=== PATIENT | male | born 1960 | race Caucasian/White ===

== ENCOUNTER 2023-02-26 08:06 | Outpatient (AMB) | payer OTHER, SELFPAY ==
[2023-02-26 08:32] VITALS: BP 132/74; PULSE 76; O2SAT 97; BMI 26.3
--- NOTE | 2023-02-26 08:32 | A.OFFPC_ITS ---
Vital Signs 02/26/23 08:32 Height 5 ft 9 in Weight 178 lb 0.2 oz BMI 26.3 BP 132/74 Blood Pressure Location Lt brachial Position Sitting Pulse 76 Pulse Source Pulse Oximeter Pulse Oximetry (%) 97 Oxygen Delivery Method Room Air Intake Visit Reasons: New patient-requesting physical Allergies Penicillins [PENICILLINS] Allergy (Severe, Verified 02/26/23 08:38) Anaphylaxis Medication List - Last Reconciled 02/26/23 by AUSTYN Infante cetirizine (Zyrtec) 10 mg PO DAILY tamsulosin 0.8 mg PO BEDTIME Tobacco use date assessed: 02/26/23 Fall risk assessment: No Falls in past year Last assessed Fall Risk: 02/26/23 Dental Screening Dental Screen Date: 02/26/23 Did you have a dental visit in the last 12 months?: Yes Did you have a dental problem in the last 6 months where you did not have access to dental care?: No Was dental information given to patient?: Patient has dentist HPI New patient-requesting physical HPI Details Patient is a 63-year-old male who presents today to establish care. Previous PCP at [facility] [place], patient reports last visit last year. Medical history significant for celiac disease, BAKARI on CPAP-reports feeling very tired after waking up and after meals-reports last sleep study about 5 years ago-his insurance will not cover another sleep study - reports new insurance now-he will call insurance to see if new sleep study will be covered, diverticulosis, BPH, overactive bladder. Patient reports hands joints and knees pain for the past 6 months, reports fatigue, hard time to concentrate, reports weight loss in the summer he was 150 lb, headaches, sinus congestion-uses Afrin couple times per month, reports multiple bowel movements normal consistency throughout the day, bloating, blurry vision, dizziness, shortness of breath on exertion and chest pain on exertion for the past 5 months. Reports colonoscopy about 4 years ago with polyps removed-will refer for another colonoscopy. [facility] Medical History (Updated 02/26/23 @ 09:03 by AUSTYN Infante) History of ventricular tachycardia Diverticulitis Hemorrhoids Surgical History (Updated 02/26/23 @ 09:30 by AUSTYN Infante) History of colonoscopy H/O esophagogastroduodenoscopy H/O neck surgery H/O cardiac radiofrequency ablation H/O rhinoplasty Social History Housing: House Patient Tobacco Use Status: Never used Tobacco service: No Current occupational status: employed Cognitive needs: No Hearing needs: No Vision needs: No Questionnaire PHQ-9 Over the last 2 weeks, how often have you been bothered by any of the following problems? 1. Little interest or pleasure in doing things: not at all 2. Feeling down, depressed, or hopeless: several days 3. Trouble falling or staying asleep, or sleeping too much: not at all 4. Feeling tired or having little energy: not at all 5. Poor appetite or overeating: not at all 6. Feeling bad about yourself - or that you are a failure or have let yourself or your family down: not at all 7. Trouble concentrating on things, such as reading the newspaper or watching television: not at all 8. Moving or speaking so slowly that other people could have noticed. Or the opposite - being so fidgety or restless that you have been moving around a lot more than usual: not at all 9. Thoughts that you would be better off or of hurting yourself in some way: not at all Total score: 1 Depression Screening Interpretation: Negative Depression Screening Done: Yes 34197 - PHQ-9 Billing: Yes Source: Developed by Drs. Danny Blount, Sanam Chaudhary, Pk Perla and colleagues, with an educational rocío from [employer]. AUDIT C Alcohol Use Questionnaire (AUDIT-C) 1. How often do you have a drink containing alcohol?: Never 2. How many drinks containing alcohol do you have on a typical day when you are drinking?: 1 or 2 3. How often do you have six or more drinks on one occasion?: Never Total Score: 0 Score Reviewed/Action Taken: No TARUN-7 AMB Questionnaire TARUN-7 Date TARUN - 7 assessed: 02/26/23 Feeling nervous, anxious, or on edge: 0 = Not at all Not being able to stop or control worryin = Not at all Worrying too much about different things: 0 = Not at all Trouble relaxin = Not at all Being so restless that it is hard to sit still: 0 = Not at all Becoming easily annoyed or irritable: 0 = Not at all Feeling afraid as if something awful might happen: 0 = Not at all Total TARUN-7 score (0-4 normal; 5-9 mild; 10-14 moderate; 15-21 severe): 0 Source: Developed by Drs. Danny Blount, Sanam Chaudhary, Pk Perla and colleagues, with an educational rocío from [employer]. TARUN-7 Assessment Billing TARUN-7 Assessment Tool: TARUN-7 Assessment 36732 Review of Systems Const Denies body aches, Denies chills, Reports fatigue, Denies fever(s) and Reports headache(s) Eyes Reports blurry vision and Denies change in vision ENT Reports dizziness, Denies otalgia, Reports headache(s), Reports nasal conge stion, Denies nasal discharge, Denies sinus pain and Denies sore throat Card Denies chest pain, Reports chest pain with activity, Denies edema, Denies leg edema, Denies lightheadedness, Denies dyspnea and Reports dyspnea on exertion Resp Denies cough, Denies dyspnea, Reports dyspnea on exertion and Denies wheezing GI Denies abdominal pain, Reports bloating, Denies constipation, Denies diarrhea, Denies nausea and Denies vomiting Denies dysuria Musc Denies myalgias and Reports arthralgias Skin/Breast Denies rash Neuro Reports dizziness and Reports headache(s) Endo Reports fatigue Aller/Immun Denies wheezing Physical exam (Primary Care) Vital Signs: Last Vital Signs Pulse 76 02/26/23 08:32 BP 132/74 02/26/23 08:32 Pulse Ox 97 02/26/23 08:32 Oxygen Delivery Method Room Air 02/26/23 08:32 BMI result Body Mass Index 26.3 Tobacco/Smoking Status: Tobacco use Status Tobacco use date assessed 02/26/23 02/26/23 08:37 Patient Tobacco Use Status Never used Tobacco 02/26/23 08:37 PHQ-9: PHQ-9 Score PHQ-9: Total score 1 02/26/23 08:37 Depression Screening Interpretation: Negative Const General: cooperative and no acute distress Orientation/consciousness: patient oriented x3 HENMT Head: Yes normocephalic and Yes atraumatic Ears: TM's normal bilaterally Face and sinus: Yes sinuses nontender Mouth: oropharynx normal and moist mucous membranes Throat: Yes posterior oropharynx normal Eyes General: appearance normal, both eyes and all related structures Pupils: Equal, round and reactive pupils present EOM: EOMs intact bilaterally Neck Neck: Yes normal visual inspection, Yes full ROM and Yes no lymphadenopathy Thyroid: Thyroid normal Resp Effort & Inspection: normal respiratory effort and able to speak in complete sentences Auscultation: clear to auscultation bilaterally, no crackles, no rales, no rhonchi and no wheezes Cardio Rate: regular rate Rhythm: regular rhythm Heart sounds: S1 normal heart sound present, S2 normal heart sound present and no murmurs GI Palpation (GI): Soft to palpation, not firm, nontender, no guarding, not rigid and no hepatosplenomegaly Auscultation: normal bowel sounds General: No CVA tenderness Back/Spine/Pelvis Back: No CVA tenderness Skin General skin exam: no rashes or lesions noted Neuro General: patient oriented x3 Cranial nerves: Yes Equal, round and reactive pupils present Gait exam (Neuro): Normal gait present Extrem General: Yes full ROM and No edema Assessment and Plan Assessment & Plan (1) Polyarthralgia: Code(s): M25.50 - Pain in unspecified joint Plan: Blood work ordered (2) Intermittent chest pain: Code(s): R07.9 - Chest pain, unspecified Plan: EKG ordered (3) Screening for colon cancer: Code(s): Z12.11 - Encounter for screening for malignant neoplasm of colon (4) Screening for prostate cancer: Code(s): Z12.5 - Encounter for screening for malignant neoplasm of prostate (5) Encounter to establish care: Code(s): Z76.89 - Persons encountering health services in other specified circumstances Plan: Patient presents to establish care Blood work ordered (6) Benign prostate hyperplasia: Code(s): N40.0 - Benign prostatic hyperplasia without lower urinary tract symptoms Plan: Continue tamsulosin at bedtime (7) BAKARI on CPAP: Code(s): G47.33 - Obstructive sleep apnea (adult) (pediatric) Plan: Pulmonology referral for an evaluation and treatment Plan Follow-up in 2 months for PE and labs Orders: Orders Complete Blood Count Auto Diff Today Z76.89 - Persons encountering health services in other specified circumstances ECG 12 lead EKG Today R07.9 - Chest pain, unspecified JONI Reflex Titer and Pattern Today M25.50 - Pain in unspecified joint Vitamin D 25-OH Total Today Z76.89 - Persons encountering health services in other specified circumstances TSH reflex Free T4 Today Z76.89 - Persons encountering health services in other specified circumstances Lipid Panel Today Z76.89 - Persons encountering health services in other specified circumstances Comprehensive Amigo. Panel Fast Today Z76.89 - Persons encountering health services in other specified circumstances Prostate Specific Antigen Today Z12.5 - Encounter for screening for malignant neoplasm of prostate Rheumatoid Factor Today M25.50 - Pain in unspecified joint Referrals Gastroenterology Referral Z12.11 - Encounter for screening for malignant neoplasm of colon Pulmonology Referral G47.33 - Obstructive sleep apnea (adult) (pediatric) Coding Level of Care Code New Pt Level 3 (73005) Diagnoses Polyarthralgia M25.50 Intermittent chest pain R07.9 Screening for colon cancer Z12.11 Screening for prostate cancer Z12.5 Encounter to establish care Z76.89 Benign prostate hyperplasia N40.0 BAKARI on CPAP G47.33 Additional Codes TARUN-7 Assessment Billing - TARUN-7 Assessment Tool: TARUN-7 Assessment 38592 ([id number])
== END 2023-02-26 09:13 | disposition home or self-care (01) ==
PROVIDERS: PCP Nurse Practitioner Family; Visit Provider Nurse Practitioner Family
DX: M25.50 Pain in unspecified joint (principal); R07.9 Chest pain, unspecified; Z12.11 Encounter for screening for malignant neoplasm of colon; Z12.5 Encounter for screening for malignant neoplasm of prostate; Z76.89 Persons encountering health services in other specified circumstances; N40.0 Benign prostatic hyperplasia without lower urinary tract symptoms; G47.33 Obstructive sleep apnea (adult) (pediatric)
CPT/HCPCS: 99203

== ENCOUNTER 2023-02-27 09:07 | Outpatient (REF) | payer OTHER, SELFPAY ==
[2023-02-27 09:17] LABS: MANUAL DIFF FLAG NO
[2023-02-27 10:06] LABS: Basophils Absolute Auto 0.1 X10*3/uL (0.0-0.2); Basophils Percent Auto 1.4 % (0-2); Eosinophils Absolute Auto 0.2 X10*3/uL (0.0-0.4); Eosinophils Percent Auto 2.8 % (0-4); Hematocrit 45.7 % (42.0-52.0); Hemoglobin 15.4 g/dl (14.0-18.0); Imm Gran Abs Auto 0.03 X10*3/uL (0.00-0.03); Imm Gran Pct Auto 0.5 % (0.0-0.4); Lymphocytes Absolute Auto 1.8 X10*3/uL (1.2-4.9); Lymphocytes Percent Auto 27.4 % (20-40); Mean Corpuscular HGB Conc 33.7 g/dl (31.0-36.0); Mean Corpuscular Hemoglobin 30.6 pg (27.0-33.0); Mean Corpuscular Volume 90.9 fL (80.0-98.0); Mean Platelet Volume 9.3 fL (9.4-12.4); Monocytes Absolute Auto 0.6 X10*3/uL (0.1-1.2); Monocytes Percent Auto 9.9 % (2-11); Neutrophils Absolute Auto 3.8 x10*3/uL (2.0-8.3); Platelet Count 315 X10*3/uL (160-400); Red Blood Count 5.03 X10*6/uL (4.60-5.80); Red Cell Distribution Width 12.5 % (11.0-16.0); White Blood Count 6.5 X10*3/uL (4.8-10.8)
[2023-02-27 10:34] LABS: Alanine Aminotransferase 30 U/L (0-40); Albumin Level 4.3 g/dL (3.5-5.0); Alkaline Phosphatase 51 U/L (39-117); Anion Gap 10 (12-20); Aspartate Amino Transferase 19 U/L (5-37); Bilirubin Total 0.7 mg/dL (0.0-1.0); Blood Urea Nitrogen 15 mg/dL (9-16); Calcium 9.3 mg/dL (8.4-10.2); Carbon Dioxide 29 mmol/L (22-29); Chloride 108 mmol/L (96-108); Cholesterol 148 mg/dL (<200); Estimated Glomerular Filt Rate > 60; Glucose Fasting 109 mg/dL (60-99); HDL Cholesterol 49 mg/dL (>40); LDL Cholesterol Calculated 83 mg/dL (<100); Sodium 143 mmol/L (135-145); Total Protein 7.1 g/dL (6.5-8.0); Triglycerides 82 mg/dL (<150)
[2023-02-27 10:43] LABS: Rheumatoid Factor < 13.0 IU/mL (<15.0)
[2023-02-27 10:49] LABS: TSH reflex Free T4 1.68 uIU/mL (0.32-4.0); Vitamin D 25-OH Total 48.4 ng/mL (>30)
[2023-02-27 10:53] LABS: Prostate Specific Antigen 1.75 ng/mL (<0.05-4.0)
[2023-03-08 15:48] LABS: Anti Nuclear Antibody Pattern Nuclear, Speckled; Anti Nuclear Antibody Screen POSITIVE (NEGATIVE)
== END 2023-02-27 09:08 | disposition home or self-care (01) ==
LOC: HO.LAB 09:07
PROVIDERS: PCP Nurse Practitioner Family; Visit Provider Nurse Practitioner Family
DX: M25.50 Pain in unspecified joint (principal); Z76.89 Persons encountering health services in other specified circumstances; Z12.5 Encounter for screening for malignant neoplasm of prostate
CPT/HCPCS: 36415; 80053; 80061; 82306; 84153; 84443; 85025; 86038; 86039; 86431

== ENCOUNTER → 2023-03-01 10:05 | Outpatient (REF) | payer OTHER, SELFPAY ==
--- NOTE | 2023-03-01 10:09 | ECG_ITS ---
Test Reason : RO7.9 Blood Pressure : / mmHG Vent. Rate : 084 BPM Atrial Rate : 084 BPM P-R Int : 172 ms QRS Dur : 108 ms QT Int : 376 ms P-R-T Axes : 066 009 055 degrees QTc Int : 444 ms Normal sinus rhythm Normal ECG When compared with ECG of 31-DEC-2015 18:58, No significant change was found Referred By: Ines Carnes Electronically Signed By:MICHELLE ABEBE MD
== END ==
LOC: HO.CARD 10:05
PROVIDERS: PCP Nurse Practitioner Family; Visit Provider Nurse Practitioner Family
DX: R07.9 Chest pain, unspecified (principal)
CPT/HCPCS: 93005

== ENCOUNTER 2023-03-10 11:07 | Outpatient (REF) | payer OTHER, SELFPAY ==
[2023-03-10 11:58] LABS: Estimated Average Glucose 117 mg/dL; Hemoglobin A1c % 5.7 % (<6.0)
== END 2023-03-10 11:08 | disposition home or self-care (01) ==
LOC: HO.LAB 11:07
PROVIDERS: PCP Nurse Practitioner Family; Visit Provider Nurse Practitioner Family
DX: R73.01 Impaired fasting glucose (principal)
CPT/HCPCS: 36415; 83036

== ENCOUNTER → 2023-03-17 09:01 | Outpatient (REF) | payer OTHER, SELFPAY ==
--- NOTE | 2023-03-17 09:04 | CA_ITS ---
Acquisition Time: 2023-03-17 09:08:49 Total Exercise Time: 00:07:27 Test Indications: CHEST PAIN Medications: TAMSULOSIN CETIRIZINE Protocol: ARMINDA Max HR: 133 BPM 85% of Pred: 156 BPM Max BP: 148/066 mmHG Max Work Load: 9.2 METS Exercise stress test exercise 7 min 27 sec of Arminda protocol achieving 85% MPHR, without anginal symptoms, without arrhythmias, with normotensive response to exercise. without EKG changes. Test reviewed with Dr. Tobin. Referred By: Ines Carnes Overread By: Samreen Monahan
== END ==
LOC: HO.CARD 09:01
PROVIDERS: PCP Nurse Practitioner Family; Visit Provider Nurse Practitioner Family
DX: R07.9 Chest pain, unspecified (principal)
CPT/HCPCS: 93017; 99202

== ENCOUNTER → 2023-03-17 09:04 | Outpatient (BNV) | payer OTHER, SELFPAY | PROVIDERS: PCP Nurse Practitioner Family; Visit Provider Nurse Practitioner | DX: R07.9 Chest pain, unspecified (principal) | CPT/HCPCS: 93016; 93018 ==

== ENCOUNTER 2023-03-17 13:27 | Outpatient (AMB) | payer OTHER, SELFPAY ==
[2023-03-17 13:32] VITALS: BP 128/70; PULSE 78; O2SAT 98; BMI 26.1
--- NOTE | 2023-03-17 13:32 | MHC.OFFVIS ---
Intake Vital Signs 03/17/23 13:32 Height 5 ft 9 in Weight 177 lb BMI 26.1 BP 128/70 Blood Pressure Location Lt brachial Position Sitting Pulse 78 Pulse Source Pulse Oximeter Pulse Oximetry (%) 98 Oxygen Delivery Method Room Air Intake Visit Reasons: Obstructive sleep apnea Clinical Biostatistician Required: No Leather Coverer: Leather Coverer offered & declined Allergies Penicillins [PENICILLINS] Allergy (Severe, Verified 03/17/23 13:39) Anaphylaxis Medication List - Last Reconciled 03/17/23 by Amee Arriaga LPN cetirizine (Zyrtec) 10 mg PO DAILY tamsulosin 0.8 mg (2 x 0.4 mg) PO BEDTIME HPI Obstructive sleep apnea HPI Details Redd is a pleasant 63 year old male, former smoker with less than 10 pack year history, quit 10 years ago, with underlying BAKARI on BiPAP and asthma since childhood. He was referred for pulmonary evaluation for management of sleep apnea. He reports sleep study was performed years ago and can not recall where it was performed. He states he has been on CPAP/BiPAP therapy for the past 20+ years, using a full facemask. Prior to therapy, he reported significant daytime fatigue, brain fog and loud snoring. Since using has decreased dramatically however feels therapy has been less effective. He is inquiring about a new machine and an updated sleep study. He denies any pertinent family history. Of note, he does report h/o asthma with increased symptoms but does not want to discuss asthma at this time and would like to focus on BAKARI therapy today. [facility] Medical History (Updated 03/19/23 @ 11:36 by Elinor Chase NP) History of ventricular tachycardia Diverticulitis Hemorrhoids Surgical History (Updated 02/26/23 @ 09:30 by AUSTYN Infante) History of colonoscopy H/O esophagogastroduodenoscopy H/O neck surgery H/O cardiac radiofrequency ablation H/O rhinoplasty Social History (Updated 03/17/23 @ 13:42 by Amee Arriaga LPN) Housing: House Patient Tobacco Use Status: Former Tobacco user Tobacco use type: Cigarette Cigarettes Per Day: 10 Years Smoked: 5 Smoked in Last 30 Days: Yes service: No Current occupational status: employed Cognitive needs: No Hearing needs: No Vision needs: No Review of Systems Eyes Denies dry eyes and Denies irritation ENT Reports Normal hearing present, Denies nasal congestion, Denies nasal discharge, Denies post nasal drip and Denies sore throat Card Denies chest pain, Denies chest pain at rest, Denies chest pain with activity, Denies claudication, Denies leg edema, Denies dyspnea, Denies dyspnea on exertion, Denies orthopnea and Denies paroxysmal nocturnal dyspnea Resp Denies chest congestion, Denies excessive phlegm production, Denies pain on inspiration, Denies pain with cough, Denies dyspnea, Denies dyspnea on exertion and Denies stridor Musc Denies myalgias Neuro Reports Normal hearing present Mert/Lymph Denies lymphadenopathy Aller/Immun Denies seasonal rhinorrhea Physical Exam Vital Signs: Last Vital Signs Pulse 78 03/17/23 13:32 BP 128/70 03/17/23 13:32 Pulse Ox 98 03/17/23 13:32 Oxygen Delivery Method Room Air 03/17/23 13:32 BMI result Body Mass Index 26.1 Const General: cooperative, healthy appearing, comfortable, no acute distress, well developed and alert Orientation/consciousness: patient oriented x3 Limitations: no limitations HEENT Head: Yes normal to inspection, Yes normocephalic and Yes atraumatic Ears: hearing grossly normal bilaterally and external ears normal Eyes General: appearance normal, both eyes and all related structures Eyelids: Yes eyelids normal Sclerae: sclerae normal EOM: EOMs intact bilaterally Neck Neck: Yes normal visual inspection and Yes no lymphadenopathy Lymphatic: no lymphadenopathy noted Chest Chest palpation & inspection: normal inspection of the chest Resp Effort & Inspection: normal respiratory effort, able to speak in complete sentences, no audible wheezes, no cough, no stridor, not tachypneic, no tripod positioning and no use of accessory muscles Auscultation: clear to auscultation bilaterally Cardio Jugular venous distension: no JVD Rate: regular rate Rhythm: regular rhythm Skin Other: warm, dry General skin exam: no rashes or lesions noted Neuro General: patient oriented x3 Cranial nerves: Yes Normal hearing present Cognition (Neuro): normal cognition Gait exam (Neuro): Normal gait present Extrem General: Yes normal to inspection, Yes capillary refill normal, Yes no clubbing, cyanosis or edema and Yes no pedal edema Psych Appearance: grossly normal and well kempt Speech and movement: Normal speech and movement present and Clear speech present Affect: normal affect Attitude: cooperative Thought process: Normal thought process present Thought content: Normal thought content present Insight: Good insight present (Psych) Judgement: Good judgement present (Psych) Assessment & Plan Assessment & Plan (1) Obstructive sleep apnea: Code(s): G47.33 - Obstructive sleep apnea (adult) (pediatric) (2) Central sleep apnea: Code(s): G47.31 - Primary central sleep apnea (3) Daytime somnolence: Code(s): R40.0 - Somnolence Plan Redd presents to reestablish care in regards to his sleep apnea. He reports having both central and obstructive sleep apnea. No prior records to review. Will send for new sleep study given symptoms and prior history. Will attempt to send for in lab first but did discuss he may need a home study first. Of note, patient did state his insurance will be changing in April and he will likely be moving to [place] [facility] [place] [facility] but would be willing to travel if he is unable to establish care with a provider locally in a timely manner. Will follow up after sleep study. All questions were answered and patient is in agreement of plan. Orders: Orders RT PSG in-lab sleep study Today G47.31 - Primary central sleep apnea, G47.33 - Obstructive sleep apnea (adult) (pediatric), R40.0 - Somnolence Coding Level of Care Code New Pt Level 3 (11420) Diagnoses Obstructive sleep apnea G47.33 Central sleep apnea G47.31 Daytime somnolence R40.0
== END 2023-03-17 14:12 | disposition home or self-care (01) ==
PROVIDERS: PCP Nurse Practitioner Family; Visit Provider Nurse Practitioner Family
DX: G47.33 Obstructive sleep apnea (adult) (pediatric) (principal); G47.31 Primary central sleep apnea; R40.0 Somnolence
CPT/HCPCS: 99203

== ENCOUNTER 2023-03-29 08:36 | Outpatient (AMB) | payer OTHER, SELFPAY ==
[2023-03-29 08:38] VITALS: BP 112/70; PULSE 102; TEMP 36.5; O2SAT 95; BMI 25.6
--- NOTE | 2023-03-29 08:38 | MHC.OFFVIS ---
Intake Vital Signs 03/29/23 08:38 Height 5 ft 9 in Weight 173 lb 1.006 oz BMI 25.6 BP 112/70 Blood Pressure Location Rt brachial Position Sitting Pulse 102 H Pulse Source Pulse Oximeter Temp 97.7 F Temp Source Skin Pulse Oximetry (%) 95 Intake Visit Reasons: Joint Pain Intake Note: New patient, internally referred, presents today with complaints of joint pain. Reports labs showed +JONI. Reports mainly here to address autoimmune disease as opposed to joint pains. No prior correspondence analyst. c/o hips, back, hands, shoulders, neck x approx 15 years. Has tried ibuprofen. Tried cannabis in the past (medical card). 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 The patient reports that he is mainly here because within the last 6 months his pains have increased, along with fatigue, short of breath, and insomnia. He has noticed this started happening since he stopped taking cannabis after 2 years. He thinks that cannabis may have been masking the symptoms he is now experiencing and so he is concerned that there is something more going on given this positive JONI. He does state that he has arthritis in his hand for which he takes ibuprofen which usually helps. But he has not been taking it because it bothers his stomach. He also reports history of celiac and tries to maintain a gluten free diet. He has severe and persistent allergies to animal dander, dust and mold for which he takes Zyrtec daily, which is found to be inadequate in recent months and so he was recently prescribed Xyzal. He uses a BiPAP machine, and has upcoming sleep study. Due to SOB and chest pain, he recently had a stress test and cardiac ECG which was without adverse findings. Patient also feels like he has decreased muscle mass to upper arms and thighs - states he has not been doing anything different. Upon inquiry for CTD and inflammatory processes, the patient denies Raynaud's phenomenon, butterfly rash on face. He reports an area on his left lower leg and ankle that started to ith recently especially after he showers. He denies photosensitivity - getting sick or developing a rash from being out in the sun; denies blood or froth in urine but reports increased nocturnal urination. Patient denies hx of Carditis or Pleuritis. Patient denies any history of DVT/PE and has never have had to take aspirin or a blood thinner. Denies fevers, non-age related thinning hair or hair loss. He endorses dry, itchy eyes most likely related to allergies, but has not had red burning eyes needing steroids to treat. He denies dry mouth, chronic mouth sores or ulcers and nose bleed; ringing in the ear. The patient states he gets thirstry alot and gets mouth sores only when he has the cold or flu. He has a Celiac and gets abdominal bloating but denies blood or mucous in stool; nausea, vomiting and diarrhea. He does not have difficulty swallowing dry food or gets food stuck in his esophagus. He denies heartburn. Denies morning stiffness lasting more than 20 mins. He does feel stiff when he wakes up but improves by breakfast. Malignancy screening: denies personal cancer hx. Colonoscopy : Has a referral to see GI Prostate: PSA [facility] Medical History (Updated 03/29/23 @ 12:01 by Jasmina Copeland [facility]) Primary osteoarthritis of hands, bilateral Chronic fatigue DELGADO (dyspnea on exertion) JONI positive Polyarthralgia Celiac disease History of ventricular tachycardia Diverticulitis Hemorrhoids Surgical History History of colonoscopy H/O esophagogastroduodenoscopy H/O neck surgery H/O cardiac radiofrequency ablation H/O rhinoplasty Social History (Updated 03/29/23 @ 08:46 by RODRIGO Tay) Household Members: Spouse Housing: House Alcohol intake: never Patient Tobacco Use Status: Former Tobacco user Tobacco use type: Cigarette Cigarettes Per Day: 10 Years Smoked: 5 service: No Current occupational status: employed 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 External ear normal, canal clear and tympanic membrane normal. NOSE/SINUS:? Some stuffiness, no nasal discharge, no bleeding THROAT:? Oral mucosa moist, no ulcerations NECK:? No thyromegaly or masses, no adenopathy, trachea midline. HEART:? Regular rhythm, S1-S2 heard, no murmurs, rubs or gallops. LUNG:? Clear to percussion and auscultation ABD:? Normal bowel sounds, no organomegaly, masses or tenderness. EXTREMITIES:? No edema, no calf tenderness, normal peripheral pulses. NEURO:? Oriented and alert x3.? No focal weakness.? Reflexes symmetric.? Gait normal. SKIN:? There are no skin lesions evident. No objective signs of Raynaud's phenomenon. Pinpoint scabbed spots to lower richards and small area on anterior ankle-likely from patient scratching his skin. No other lesions observed JOINT EXAM: Cervical Spine:.? Full range of motion without pain; no tenderness. Thoracic Spine:.? No scoliosis.? No tenderness on palpation. Lumbar Spine:.? Alignment normal.? Full range of motion without pain, no tenderness. Chest Wall:.? No tenderness, swelling, increased warmth or erythema. Hands:.? Normal pain-free range of motion without tenderness, swelling, increased warmth or erythema. Able to make a full fist and has a good quality assurance assessor strength. Wrists:.? Normal pain-free range of motion without tenderness, swelling, increased warmth or erythema. Elbows:. Normal pain-free range of motion without tenderness, swelling, increased warmth or erythema. Shoulders:.?? Full range of motion without pain. No tenderness, weakness, swelling, increased warmth or erythema. Hips:.? Full range of motion without pain. Hip bursa:.? No tenderness. Knees:.?? Normal pain-free range of motion without tenderness, swelling, increased warmth or erythema.? There is no effusion or crepitation Ankles:.? Normal pain-free range of motion without tenderness, swelling, increased warmth or erythema. Feet:.? Normal pain-free range of motion without tenderness, swelling, increased warmth or erythema. Tender points:? No tenderness to digital palpation at the occiput, trapezius, second rib, lateral epicondyle, knees, greater trochanter and gluteal area bilaterally. JOINT EXAM: Cervical Spine:.? Full range of motion without pain; no tenderness. Thoracic Spine:.? No scoliosis.? No tenderness on palpation. Lumbar Spine:.? Alignment normal.? Full range of motion without pain, no tenderness. Chest Wall:.? No tenderness, swelling, increased warmth or erythema. Hands:.? Normal pain-free range of motion without tenderness, swelling, increased warmth or erythema. Able to make a full fist and has a good quality assurance assessor strength. Mild to moderate Heberden nodes to bilateral DIP Wrists:.? Normal pain-free range of motion without tenderness, swelling, increased warmth or erythema. Elbows:. Normal pain-free range of motion without tenderness, swelling, increased warmth or erythema. Shoulders:.?? Full range of motion without pain. No tenderness, weakness, swelling, increased warmth or erythema. Hips:.? Full range of motion without pain. Hip bursa:.? No tenderness. Knees:.?? Normal pain-free range of motion without tenderness, swelling, increased warmth or erythema.? There is no effusion or crepitation Ankles:.? Normal pain-free range of motion without tenderness, swelling, increased warmth or erythema. Feet:.? Normal pain-free range of motion without tenderness, swelling, increased warmth or erythema. Tender points:? No tenderness to digital palpation at the occiput, trapezius, second rib, lateral epicondyle, knees, greater trochanter and gluteal area bilaterally. low muscle tone to upper arms and thighs on palpation Results Reviewed Results Reviewed: Laboratory Tests 02/27/23 02/27/23 03/10/23 09:15 09:15 11:27 WBC 6.5 RBC 5.03 Hgb 15.4 Hct 45.7 BUN 15 Creatinine 0.85 Hemoglobin A1c % 5.7 Prostate Specific Ag 1.75 25-OH Vitamin D Total 48.4 TSH 1.68 JONI Titer 1:80 H Acquisition Time: 2023-03-17 09:08:49 Stress Test Total Exercise Time: 00:07:27 Test Indications: CHEST PAIN Medications: TAMSULOSIN CETIRIZINE Exercise stress test exercise 7 min 27 sec of Charles protocol achieving 85% MPHR, without anginal symptoms, without arrhythmias, with normotensive response to exercise. without EKG changes. Test reviewed with Dr. Tobin. Referred By: Ines Carnes Overread By: Samreen Monahan 03/01/2023 electrocardiogram Test Reason : RO7.9 Blood Pressure : / mmHG Vent. Rate : 084 BPM Atrial Rate : 084 BPM P-R Int : 172 ms QRS Dur : 108 ms QT Int : 376 ms P-R-T Axes : 066 009 055 degrees QTc Int : 444 ms Normal sinus rhythm Normal ECG When compared with ECG of 31-DEC-2015 18:58, No significant change was found Referred By: Ines Carnes Electronically Signed By:MICHELLE ABEBE MD Assessment & Plan Assessment & Plan (1) JONI positive: Code(s): R76.8 - Other specified abnormal immunological findings in serum (2) Polyarthralgia: Code(s): M25.50 - Pain in unspecified joint (3) Primary osteoarthritis of hands, bilateral: Code(s): M19.041 - Primary osteoarthritis, right hand; M19.042 - Primary osteoarthritis, left hand (4) DELGADO (dyspnea on exertion): Code(s): R06.09 - Other forms of dyspnea (5) Chronic fatigue: Code(s): R53.82 - Chronic fatigue, unspecified Plan #+JONI: 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 After initial careful evaluation of patient's history, medical records, physical examination, and available diagnostics, I do not think there is an autoimmune process or inflammatory pathology that underlies his symptoms. Not withstanding I will do some additional labs to evaluate the +JONI. #PolyArthralgia/Hand OA: I think the patient's joint pains are related to onset of osteoarthritis, and some deconditioning. On PE, he does have Heberden's nodes. He does states that after a long day of standing too long he may get some swelling in his feet and feel increased achiness once he sits down. Additionally, his hands may feel a bit more painful if he has had hard working day. However, he denies joint swelling, warmth and tenderness that is usually seen in the setting of an inflammatory arthritis and no synovitis seen. He states his hands are more bothersome than any other parts. I will obtain x-rays of his hands and assess for inflammatory features such as erosions and bone demineralization. I recommend he uses diclofenac that can help with the hand pain given that ibuprofen bothers his stomach. #Fatigue:Fatigue is a symptom common to many conditions such as cardiopulmonary, depression, sleep apnea and connective tissue disease. We will ensure that there is not an underlying connective tissue disease. It is likely that since he has stopped taking cannabis which was helping him to sleep well, his sleep is now affected. Additionally, the patient uses a BiPAP and does have an upcoming sleep study scheduled. Insomnia and sleep apnea can be causes for increased tiredness. #DELGADO:Redd stipulate to increase short of breath when he is doing normal activities like climbing stairs. He has had a recent stress test and and EKG for chest pain and short of breath without abnormal findings. He has a history of asthma and allergies with a dry cough. Per patient he stopped smoking cigarettes at least 10 years ago. He states his asthma flares domes in the form of chest pain and burning and denies that the inhaler is effective. His lungs were CTA on PE with no adventitious sounds. I will obtain a chest x-ray to assess further. Patient was recently seen by Pulmonary for sleep apnea. I recommend that he returns to Pulmonary for PFTs and additional evalaution. Orders: Orders Complement C3 Today M25.50 - Pain in unspecified joint, R76.8 - Other specified abnormal immunological findings in serum Creatine Kinase Total Today M25.50 - Pain in unspecified joint, R76.8 - Other specified abnormal immunological findings in serum Erythrocyte Sedimentation Rate Today M25.50 - Pain in unspecified joint, R76.8 - Other specified abnormal immunological findings in serum Aldolase Today M25.50 - Pain in unspecified joint, R76.8 - Other specified abnormal immunological findings in serum Vitamin B12 Today M25.50 - Pain in unspecified joint, R76.8 - Other specified abnormal immunological findings in serum Anti DNA DS Antibody Today M25.50 - Pain in unspecified joint, R76.8 - Other specified abnormal immunological findings in serum Sjogren's Antibodies Today M25.50 - Pain in unspecified joint, R76.8 - Other specified abnormal immunological findings in serum UA w Microscopic Today M25.50 - Pain in unspecified joint, R76.8 - Other specified abnormal immunological findings in serum XR hand LT min 3V Today M25.50 - Pain in unspecified joint, R76.8 - Other specified abnormal immunological findings in serum Anti Extractable Nuclear Ag Today M25.50 - Pain in unspecified joint, R76.8 - Other specified abnormal immunological findings in serum Complement C4 Today M25.50 - Pain in unspecified joint, R76.8 - Other specified abnormal immunological findings in serum C Reactive Protein Today M25.50 - Pain in unspecified joint, R76.8 - Other specified abnormal immunological findings in serum Hepatitis A,B,C Profile Today M25.50 - Pain in unspecified joint, R76.8 - Other specified abnormal immunological findings in serum XR hand RT min 3V Today M25.50 - Pain in unspecified joint, R76.8 - Other specified abnormal immunological findings in serum Cyclic Citrullinated Peptide Today M25.50 - Pain in unspecified joint, R76.8 - Other specified abnormal immunological findings in serum HLA B27 Today M25.50 - Pain in unspecified joint, R76.8 - Other specified abnormal immunological findings in serum XR chest 2V Today R06.09 - Other forms of dyspnea, R53.82 - Chronic fatigue, unspecified Coding Level of Care Code Tele New Pt Level 5 (52486) Diagnoses JONI positive R76.8 Polyarthralgia M25.50 Primary osteoarthritis of hands, bilateral M19.041; M19.042 DELGADO (dyspnea on exertion) R06.09 Chronic fatigue R53.82
== END 2023-03-29 09:51 | disposition home or self-care (01) ==
LOC: HO.RHE 08:36
PROVIDERS: PCP Nurse Practitioner Family; Visit Provider Nurse Practitioner Family
DX: R76.8 Other specified abnormal immunological findings in serum (principal); M25.59 Pain in other specified joint; M19.041 Primary osteoarthritis, right hand; M19.042 Primary osteoarthritis, left hand; R06.09 Other forms of dyspnea; R53.82 Chronic fatigue, unspecified
CPT/HCPCS: 99204

== ENCOUNTER → 2023-03-29 08:36 | Outpatient (BNVA) | payer OTHER, SELFPAY | PROVIDERS: PCP Nurse Practitioner Family; Visit Provider Nurse Practitioner Family | DX: R76.8 Other specified abnormal immunological findings in serum (principal); M25.50 Pain in unspecified joint; M19.041 Primary osteoarthritis, right hand; M19.042 Primary osteoarthritis, left hand; R06.09 Other forms of dyspnea; R53.82 Chronic fatigue, unspecified | CPT/HCPCS: 99202 ==

== ENCOUNTER 2023-03-30 09:10 | Outpatient (REF) | payer OTHER, SELFPAY ==
--- NOTE | ~2023-03-30 | XR_ITS ---
EXAMINATION: XR CHEST CLINICAL INFORMATION: Dyspnea, cough and chest pain COMPARISON: None available. TECHNIQUE: 2 views of the chest were obtained. FINDINGS: The cardiac and mediastinal contours are normal. The lungs are clear. No pleural effusion or pneumothorax. Surgical clips project over the left chest. Mild degenerative changes of the spine. XR/XR chest 2V IMPRESSION: No evidence for acute disease in the chest.
--- NOTE | ~2023-03-30 | XR_ITS ---
EXAMINATION: Bilateral hand x-ray CLINICAL INFORMATION: Pain COMPARISON: None. TECHNIQUE: 3 views of each hand FINDINGS: Bone alignment is normal. No fracture or dislocation. Mild osteoarthritis at the first CHCF and IP joints with small osteophytes, right greater than left. Joint spaces are otherwise normal. Soft tissues are normal. XR/XR hand LT min 3V IMPRESSION: Mild osteoarthritis at the first CHCF and IP joints.
--- NOTE | ~2023-03-30 | XR_ITS ---
EXAMINATION: Bilateral hand x-ray CLINICAL INFORMATION: Pain COMPARISON: None. TECHNIQUE: 3 views of each hand FINDINGS: Bone alignment is normal. No fracture or dislocation. Mild osteoarthritis at the first HALF-WAY and IP joints with small osteophytes, right greater than left. Joint spaces are otherwise normal. Soft tissues are normal. XR/XR hand RT min 3V IMPRESSION: Mild osteoarthritis at the first HALF-WAY and IP joints.
[2023-03-30 10:36] LABS: C Reactive Protein < 0.10 mg/dL (< or = 0.50)
[2023-03-30 10:38] LABS: Erythrocyte Sedimentation Rate 4 MM/HR (0-15)
[2023-03-30 10:44] LABS: HBS Num1 0.28 mIU/mL (0-7.99); HBc Num1 0.06 S/CO (0.00-0.79); HBsAGNum1 0.31 S/CO (0.00-0.99); Hepatitis A Antibody IgM 0.11 Index (0-0.79); Hepatitis B Core Antibody Nonreactive (Nonreactive); Hepatitis B Surface Antigen Negative (Negative); ~HepC Num1 0.09 S/CO (0.00-0.79); ~Hepatitis A Antibody IgM Nonreactive (Nonreactive); ~Hepatitis B Surface Antibody NONREACTIVE (Nonreactive); ~Hepatitis C Antibody Nonreactive (Nonreactive)
[2023-03-30 10:53] LABS: Vitamin B12 897 pg/mL (200-900)
[2023-03-30 11:02] LABS: Appearance Urine Clear; Color Urine Yellow; Glucose Urine UA Negative (Negative); Leukocyte Esterase Urine Negative (Negative); Nitrite Urine Negative (Negative); PH 6.5 (5.0-9.0); Specific Gravity - Urine 1.025 (1.005-1.025); Urine Blood Negative (Negative); Urine Ketones Negative (Negative); Urine Protein Negative (Neg-Trace)
[2023-03-30 11:07] LABS: Bacteria Urine None Seen (None Seen); Hyaline Casts Urine 0-2 /LPF (0-2); RBC Urine 0-2 /HPF (0-2); Squamous Epithelial Cell Urine 0-2 /HPF (0-2); WBC Urine 0-5 /HPF (0-5)
[2023-03-31 18:18] LABS: Complement C3 108 mg/dL (82-185)
[2023-04-02 01:39] LABS: HLA B27 Positive (Negative)
[2023-04-02 11:58] LABS: Cyclic Citrullinated Peptide <16 UNITS
[2023-04-02 13:08] LABS: Anti DNA DS Antibody <1 IU/mL; Antibody to SS-A Antigen <1.0 NEG AI (<1.0 NEG); Antibody to SS-B Antigen <1.0 NEG AI (<1.0 NEG); SM/Ribonucleoprotein Ab <1.0 NEG AI (<1.0 NEG); Smith Protein <1.0 NEG AI (<1.0 NEG)
[2023-04-03 06:58] LABS: Aldolase 5.2 U/L (<=8.1)
== END 2023-03-30 09:11 | disposition home or self-care (01) ==
LOC: HO.XRAY 09:10
PROVIDERS: PCP Nurse Practitioner Family; Visit Provider Nurse Practitioner Family
DX: R53.82 Chronic fatigue, unspecified (principal); R06.09 Other forms of dyspnea; M25.50 Pain in unspecified joint; R76.8 Other specified abnormal immunological findings in serum
CPT/HCPCS: 36415; 71046; 73130; 81001; 82085; 82550; 82607; 85652; 86140; 86160; 86200; 86225; 86235; 86704; 86706; 86709; 86803; 86812; 87340

== ENCOUNTER 2023-08-10 14:56 | Outpatient (AMB) | payer OTHER, SELFPAY ==
--- NOTE | 2023-08-10 14:58 | A.OFFPC_ITS ---
Vital Signs 08/10/23 15:02 Height 5 ft 9 in Weight 183 lb BMI 27.0 BP 104/74 Blood Pressure Location Lt brachial Position Sitting Pulse 68 Pulse Source Pulse Oximeter Pulse Oximetry (%) 96 Oxygen Delivery Method Room Air Intake Visit Reasons: leland [place] Intake Note: Patient is here for DEY[facility] from [facility] 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 Dancer: Not Required per policy Accompanied by: Self / Same As Patient Allergies Penicillins [PENICILLINS] Allergy (Severe, Verified 08/10/23 16:23) Anaphylaxis Medication List - Last Reconciled 08/10/23 by Vazquez Tran MD fluticasone propionate 50 mcg/actuation 1 spray intranasal DAILY levocetirizine (Xyzal) 5 mg PO DAILY tamsulosin 0.8 mg (2 x 0.4 mg) PO BEDTIME Tobacco use date assessed: 08/10/23 Fall risk assessment: No Falls in past year Last assessed Fall Risk: 08/10/23 Dental Screening Dental Screen Date: 08/10/23 Did you have a dental visit in the last 12 months?: Yes Did you have a dental problem in the last 6 months where you did not have access to dental care?: No Was dental information given to patient?: Patient has dentist HPI [facility] HPI Details 63 year old male presents to the office to discuss his medical conditions. I am assuming his care as his provider has left the practice. Patient reports that a year ago he was seeing specialists for sleep apnea and rheumatological issues. He believed that he was relocating and did not follow- up with them. He would like an appointment to continue seeing them. Patient has a positive JONI and extensive workup has not revealed any cause of his autoimmune disease. He is on CPAP at home for obstructive sleep apnea. However the last sleep study was done 5 years ago and had started the process of getting tested again by the sleep specialist. Patient is also requesting an a ppointment to see a [employer] reverse winder for a colonoscopy. He had a colonoscopy 3 years ago. He thinks he may have celiac disease or diverticulosis. Patient gives history of extreme fatigue. As he thought he was moving, patient discontinued work few months ago. He is currently looking for a job again. Patient works doing house maintenance. Nonsmoker. He quit cannabis use a few years ago. COUNT INCLUDES THE [facility] Medical History Primary osteoarthritis of hands, bilateral Chronic fatigue DELGADO (dyspnea on exertion) JONI positive Polyarthralgia Celiac disease History of ventricular tachycardia Diverticulitis Hemorrhoids Surgical History History of colonoscopy H/O esophagogastroduodenoscopy H/O neck surgery H/O cardiac radiofrequency ablation H/O rhinoplasty Social History Household Members: Spouse Housing: House Alcohol intake: never Patient Tobacco Use Status: Former Tobacco user Tobacco use type: Cigarette Cigarettes Per Day: 10 Years Smoked: 5 Packs per year/per ci.50 e-Cigarette/Vaping Use: Never Used Second Hand Smoke Exposure: Yes service: No Current occupational status: employed 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 1. Little interest or pleasure in doing things: not at all 2. Feeling down, depressed, or hopeless: not at all 3. Trouble falling or staying asleep, or sleeping too much: not at all 4. Feeling tired or having little energy: not at all 5. Poor appetite or overeating: not at all 6. Feeling bad about yourself - or that you are a failure or have let yourself or your family down: not at all 7. Trouble concentrating on things, such as reading the newspaper or watching television: not at all 8. Moving or speaking so slowly that other people could have noticed. Or the opposite - being so fidgety or restless that you have been moving around a lot more than usual: not at all 9. Thoughts that you would be better off or of hurting yourself in some way: not at all Total score: 0 Depression Screening Interpretation: Negative Depression Screening Done: Yes Source: Developed by Drs. Danny Blount, Sanam Chaudhary, Pk Perla and colleagues, with an educational rocío from [employer]. Thrive Questionnaire Date Thrive assessed: 08/10/23 I am a: Patient What is your living situation today?: I have a steady place to live Within the past 12 months, did the food you bought not last and you didn't have the money to get more?: Never true Within the past 12 months, did you worry whether your food would run out before you got money to buy more?: Never true Do you have trouble paying for medicines?: No Do you have trouble getting transportation to medical appointments?: No Do you have trouble paying your heating and electricity bill?: No Do you have trouble taking care of your child, family member or friend?: No Do you have trouble with day-to-day activities such as bathing, preparing meals, shopping, managing finances, etc.?: No Are you currently unemployed and looking for a job?: No Are you interested in more education?: No Currently or been in a relationship where the following occur: no concerns reported THRIVE Score: 0 AUDIT C Alcohol Use Questionnaire (AUDIT-C) 1. How often do you have a drink containing alcohol?: Never Total Score: 0 TARUN-7 AMB Questionnaire TARUN-7 Date TARUN - 7 assessed: 08/10/23 Feeling nervous, anxious, or on edge: 0 = Not at all Not being able to stop or control worryin = Not at all Worrying too much about different things: 0 = Not at all Trouble relaxin = Not at all Being so restless that it is hard to sit still: 0 = Not at all Becoming easily annoyed or irritable: 0 = Not at all Feeling afraid as if something awful might happen: 0 = Not at all Total TARUN-7 score (0-4 normal; 5-9 mild; 10-14 moderate; 15-21 severe): 0 Source: Developed by Drs. Danny Blount, Sanam Chaudhary, Pk Perla and colleagues, with an educational rocío from [employer]. Physical exam (Primary Care) Vital Signs: Last Vital Signs Pulse 68 08/10/23 15:02 BP 104/74 08/10/23 15:02 Pulse Ox 96 08/10/23 15:02 Oxygen Delivery Method Room Air 08/10/23 15:02 Care Plan Goal for BP management: Blood pressure is in range. BMI result Body Mass Index 27.0 Tobacco/Smoking Status: Tobacco use Status Tobacco use date assessed 08/10/23 08/10/23 15:10 Patient Tobacco Use Status Former Tobacco user 08/10/23 15:10 Tobacco use type Cigarette 08/10/23 15:10 e-Cigarette/Vaping Use Never Used 08/10/23 15:10 PHQ-9: PHQ-9 Score PHQ-9: Total score 0 08/10/23 15:10 Depression Screening Interpretation: Negative Thrive Assessment: Date of Thrive Assessment Date Thrive assessed 08/10/23 08/10/23 15:10 Currently or been in a relationship where the following occur: no concerns reported Const General: cooperative and healthy appearing Nutritional Appearance: well nourished Orientation/consciousness: patient oriented x3 Limitations: no limitations HENMT Head: Yes normal to inspection Eyes General: appearance normal, both eyes and all related structures Neck Neck: Yes normal visual inspection Chest Chest palpation & inspection: normal palpation of entire chest wall Resp Effort & Inspection: normal respiratory effort Neuro General: patient oriented x3 Results Reviewed Results Reviewed: Pulmonary and rheumatological consult reviewed. Assessment and Plan Assessment & Plan (1) GARCIA (nonalcoholic steatohepatitis): Code(s): K75.81 - Nonalcoholic steatohepatitis (GARCIA) Plan: Blood work has been ordered. Will call with results. (2) Benign prostate hyperplasia: Code(s): N40.0 - Benign prostatic hyperplasia without lower urinary tract symptoms Plan: PSA has been ordered. Will call with results. (3) Daytime somnolence: Code(s): R40.0 - Somnolence Plan: Patient will be referred back to [facility]. They were seeing him last. (4) Polyarthralgia: Code(s): M25.50 - Pain in unspecified joint Plan: Rheumatology note reviewed. Blood work does not show any evidence of autoimmune disease. A referral to [facility] has been made. (5) Celiac disease: Code(s): K90.0 - Celiac disease Plan: Patient was encouraged to get me the name of the [employer] reverse winder who has done his procedures. Orders: Orders Basic Metabolic Panel Today K75.81 - Nonalcoholic steatohepatitis (GARCIA) Complete Blood Count no Diff Today K75.81 - Nonalcoholic steatohepatitis (GARCIA) Lipid Panel Today K75.81 - Nonalcoholic steatohepatitis (GARCIA) Liver Panel Today K75.81 - Nonalcoholic steatohepatitis (GARCIA) UA and rflx microscopic Today K75.81 - Nonalcoholic steatohepatitis (GARCIA) Prostate Specific Antigen Scr Today N40.0 - Benign prostatic hyperplasia without lower urinary tract symptoms Erythrocyte Sedimentation Rate Today K75.81 - Nonalcoholic steatohepatitis (GARCIA) Thyroid Stimulating Hormone Today K75.81 - Nonalcoholic steatohepatitis (GARCIA) Coding Level of Care Code Est Pt Level 4 (80047) Diagnoses GARCIA (nonalcoholic steatohepatitis) K75.81 Benign prostate hyperplasia N40.0 Daytime somnolence R40.0 Polyarthralgia M25.50 Celiac disease K90.0
[2023-08-10 15:02] VITALS: BP 104/74; PULSE 68; O2SAT 96; BMI 27.0
== END 2023-08-10 16:45 | disposition home or self-care (01) ==
PROVIDERS: PCP Nurse Practitioner Family; Visit Provider Internal Medicine
DX: K75.81 Nonalcoholic steatohepatitis (NASH) (principal); N40.0 Benign prostatic hyperplasia without lower urinary tract symptoms; R40.0 Somnolence; M25.50 Pain in unspecified joint; K90.0 Celiac disease
CPT/HCPCS: 99214

== ENCOUNTER 2023-08-13 08:41 | Outpatient (REF) | payer OTHER, SELFPAY ==
[2023-08-13 09:10] LABS: Hemoglobin 15.7 g/dl (14.0-18.0); Mean Corpuscular HGB Conc 34.1 g/dl (31.0-36.0); Mean Corpuscular Hemoglobin 30.8 pg (27.0-33.0); Mean Corpuscular Volume 90.4 fL (80.0-98.0); Mean Platelet Volume 9.5 fL (9.4-12.4); Platelet Count 275 X10*3/uL (160-400); Red Blood Count 5.09 X10*6/uL (4.60-5.80); Red Cell Distribution Width 12.5 % (11.0-16.0); White Blood Count 6.6 X10*3/uL (4.8-10.8)
[2023-08-13 09:38] LABS: Appearance Urine Clear; Color Urine Yellow; Glucose Urine UA Negative (Negative); Leukocyte Esterase Urine Negative (Negative); Nitrite Urine Negative (Negative); PH 5.5 (5.0-9.0); Specific Gravity - Urine >= 1.030 (1.005-1.025); Urine Blood Negative (Negative); Urine Ketones Negative (Negative); Urine Protein Negative (Neg-Trace)
[2023-08-13 09:54] LABS: Erythrocyte Sedimentation Rate 5 MM/HR (0-15)
[2023-08-13 10:00] LABS: Alanine Aminotransferase 29 U/L (0-40); Albumin Level 4.3 g/dL (3.5-5.0); Alkaline Phosphatase 45 U/L (39-117); Anion Gap 12 (12-20); Aspartate Amino Transferase 18 U/L (5-37); Bilirubin Direct 0.3 mg/dL (0.0-0.5); Bilirubin Total 0.8 mg/dL (0.0-1.0); Blood Urea Nitrogen 19 mg/dL (9-16); Calcium 9.8 mg/dL (8.4-10.2); Carbon Dioxide 26 mmol/L (22-29); Chloride 108 mmol/L (96-108); Cholesterol 146 mg/dL (<200); Estimated Glomerular Filt Rate > 60; Glucose Random 108 mg/dL (60-115); HDL Cholesterol 40 mg/dL (>40); LDL Cholesterol Calculated 90 mg/dL (<100); Potassium 3.8 mmol/L (3.3-5.1); Sodium 142 mmol/L (135-145); Total Protein 7.3 g/dL (6.5-8.0); Triglycerides 84 mg/dL (<150)
[2023-08-13 10:08] LABS: Prostate Specific Antigen Scr 2.28 ng/mL (<0.05-4.0)
== END 2023-08-13 08:42 | disposition home or self-care (01) ==
LOC: HO.LAB 08:41
PROVIDERS: PCP Internal Medicine; Visit Provider Internal Medicine
DX: K75.81 Nonalcoholic steatohepatitis (NASH) (principal); N40.0 Benign prostatic hyperplasia without lower urinary tract symptoms
CPT/HCPCS: 36415; 80048; 80061; 80076; 81003; 84153; 84443; 85027; 85652

== ENCOUNTER → 2023-09-20 08:46 | Outpatient (REF) | payer OTHER, SELFPAY | LOC: HO.SL 08:46 | PROVIDERS: PCP Internal Medicine; Visit Provider Nurse Practitioner Family | DX: R06.83 Snoring (principal) | CPT/HCPCS: 95806 ==

== ENCOUNTER → 2023-09-21 08:59 | Outpatient (BNV) | payer OTHER, SELFPAY | PROVIDERS: PCP Internal Medicine; Visit Provider Internal Medicine | DX: R06.83 Snoring (principal); R40.0 Somnolence | CPT/HCPCS: 95806 ==

== ENCOUNTER 2023-10-07 09:52 | Outpatient (AMB) | payer OTHER, SELFPAY ==
--- NOTE | 2023-10-07 10:36 | MHC.PC.OV ---
Vital Signs 10/07/23 10:38 Height 5 ft 9 in Weight 182 lb 6 oz BMI 26.9 BP 110/60 Blood Pressure Location Lt brachial Position Sitting Pulse 93 Pulse Source Pulse Oximeter Pulse Oximetry (%) 95 Oxygen Delivery Method Room Air Intake Visit Reasons: knee pain Intake Note: Patient is here to follow up on right knee pain. C Python Developer Required: No Engine Maintenance Mechanic: Not Required per policy Accompanied by: Self / Same As Patient Allergies Penicillins [PENICILLINS] Allergy (Severe, Verified 10/07/23 10:38) Anaphylaxis Medication List - Last Reconciled 10/12/23 by Vazquez Tran MD fluticasone propionate 50 mcg/actuation 1 spray intranasal DAILY levocetirizine (Xyzal) 5 mg PO DAILY meloxicam 15 mg PO DAILY selenium sulfide 2.5% 1 appl topical Q2W tamsulosin 0.8 mg (2 x 0.4 mg) PO BEDTIME Tobacco use date assessed: 10/07/23 Fall risk assessment: No Falls in past year Last assessed Fall Risk: 10/07/23 Dental Screening Dental Screen Date: 08/10/23 HPI knee pain HPI Details 63-year-old male presents to the office to discuss his chronic medical conditions. Patient is complaining of pain just below the right knee. Does not recall any fall or injury. Pain is worse on climbing her coming down stairs. Sometimes, due to the pain, he walks with a limp. Able to do all activities of daily living. [facility] Medical History Primary osteoarthritis of hands, bilateral Chronic fatigue DELGADO (dyspnea on exertion) JONI positive Polyarthralgia Celiac disease History of ventricular tachycardia Diverticulitis Hemorrhoids Surgical History History of colonoscopy H/O esophagogastroduodenoscopy H/O neck surgery H/O cardiac radiofrequency ablation H/O rhinoplasty Social History Household Members: Spouse Housing: House Alcohol intake: never Patient Tobacco Use Status: Former Tobacco user Tobacco use type: Cigarette Cigarettes Per Day: 10 Years Smoked: 5 e-Cigarette/Vaping Use: Never Used Second Hand Smoke Exposure: Yes service: No Current occupational status: employed 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 Danny Blount, Sanam Chaudhary, Pk Perla and colleagues, with an educational rocío from [employer]. Physical exam (Primary Care) Vital Signs: Last Vital Signs Pulse 93 10/07/23 10:38 BP 110/60 10/07/23 10:38 Pulse Ox 95 10/07/23 10:38 Oxygen Delivery Method Room Air 10/07/23 10:38 BMI result Body Mass Index 26.9 Tobacco/Smoking Status: Tobacco use Status Tobacco use date assessed 10/07/23 10/07/23 10:43 Patient Tobacco Use Status Former Tobacco user 10/07/23 10:43 Tobacco use type Cigarette 10/07/23 10:43 e-Cigarette/Vaping Use Never Used 10/07/23 10:43 Thrive Assessment: Date of Thrive Assessment Date Thrive assessed 08/10/23 10/07/23 10:43 Extrem Other: Right knee; no joint line tenderness. Full range of motion. Assessment and Plan Assessment & Plan (1) Right knee sprain: Code(s): S83.91XA - Sprain of unspecified site of right knee, initial encounter Plan: X-ray ordered. Will call with results. Knee brace provided. If symptoms do not improve to follow-up here. Orders: Orders XR knee RT 3V 10/07/23 S83.91XA - Sprain of unspecified site of right knee, initial encounter Medications: New meloxicam 15 mg PO DAILY 14 tabs 0RF Refilled levocetirizine (Xyzal) 5 mg PO DAILY 90 tabs 1RF Coding Level of Care Code Est Pt Level 3 (64626) Diagnoses Right knee sprain S83.91XA
[2023-10-07 10:38] VITALS: BP 110/60; PULSE 93; O2SAT 95; BMI 26.9
== END 2023-10-07 14:44 | disposition home or self-care (01) ==
PROVIDERS: PCP Internal Medicine; Visit Provider Internal Medicine
DX: S83.91XA Sprain of unspecified site of right knee, initial encounter (principal)
CPT/HCPCS: 99213

== ENCOUNTER 2023-10-15 15:25 | Outpatient (REF) | payer OTHER, SELFPAY ==
--- NOTE | ~2023-10-15 | XR_ITS ---
EXAMINATION: XR KNEE, RIGHT CLINICAL INFORMATION: Right knee pain. Remote injury. COMPARISON: None available. TECHNIQUE: Three views of the right knee. FINDINGS: Mild medial compartment joint space narrowing. Small tricompartmental marginal osteophytes. No acute fracture or dislocation. No concerning lytic or blastic osseous lesion. No significant joint effusion. No abnormal soft tissue calcification. XR/XR knee RT 3V IMPRESSION: Mild tricompartmental osteoarthritis.
== END 2023-10-15 15:26 | disposition home or self-care (01) ==
LOC: HO.XRAY 15:25
PROVIDERS: PCP Internal Medicine; Visit Provider Internal Medicine
DX: S83.91XA Sprain of unspecified site of right knee, initial encounter (principal)
CPT/HCPCS: 73562

== ENCOUNTER 2023-10-22 10:53 | Outpatient (AMB) | payer OTHER, SELFPAY ==
--- NOTE | 2023-10-22 10:53 | MHC.OFFVIS ---
Intake Visit Reasons: sleep in lab study discussion Call [phone] Allergies Penicillins [PENICILLINS] Allergy (Severe, Verified 10/07/23 10:38) Anaphylaxis HPI HPI sleep in lab study discussion Call [phone]: Details: Redd is a pleasant 63 year old male, former smoker with less than 10 pack year history, quit 10 years ago, with underlying BAKARI on BiPAP and asthma since childhood. Today's visit was conducted via telephone to review home study results. At this time denies any respiratory symptoms. Of note, despite using BiPAP he continues with significant daytime fatigue and loud snoring. [facility] Medical History Primary osteoarthritis of hands, bilateral Chronic fatigue DELGADO (dyspnea on exertion) JONI positive Polyarthralgia Celiac disease History of ventricular tachycardia Diverticulitis Hemorrhoids Surgical History History of colonoscopy H/O esophagogastroduodenoscopy H/O neck surgery H/O cardiac radiofrequency ablation H/O rhinoplasty Social History Household Members: Spouse Housing: House Alcohol intake: never Patient Tobacco Use Status: Former Tobacco user Tobacco use type: Cigarette Cigarettes Per Day: 10 Years Smoked: 5 e-Cigarette/Vaping Use: Never Used Second Hand Smoke Exposure: Yes service: No Current occupational status: employed 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 Cognitive needs: No Hearing needs: No Vision needs: Yes (Glasses) Review of Systems Const All systems reviewed & are unremarkable except as noted in HPI and below Physical Exam Const General: cooperative and no acute distress Orientation/consciousness: patient oriented x3 Resp Effort & Inspection: normal respiratory effort, able to speak in complete sentences and no audible wheezes Neuro General: patient oriented x3 Psych Mental Status: mental status grossly normal Speech and movement: Clear speech present Attitude: cooperative Thought process: Normal thought process present Thought content: Normal thought content present Insight: Good insight present (Psych) Judgement: Good judgement present (Psych) Telehealth Telehealth Telehealth Platform: Telephone Location of provider rendering services: practice address Location of patient: address on file Patient Identification confirmed using: Name, : Yes Telehealth method: voice only Patient verbally consented to treatment: Yes Patient verbally consented to billing insurance company: Yes Patient informed of any privacy concerns related to visit: Yes Assessment & Plan Assessment & Plan (1) Obstructive sleep apnea: Code(s): G47.33 - Obstructive sleep apnea (adult) (pediatric) Category: Medical (2) Central sleep apnea: Code(s): G47.31 - Primary central sleep apnea Category: Medical (3) Daytime somnolence: Code(s): R40.0 - Somnolence Category: Medical Plan Reviewed results of home sleep study with patient today, which was negative. Given that patient is still symptomatic, having significant daytime fatigue with BiPAP use, will send for in lab PSG to ensure accuracy. All questions were answered and patient is in agreement of plan. Will follow up after sleep study. Orders: Orders RT PSG in-lab sleep study Today G47.31 - Primary central sleep apnea, G47.33 - Obstructive sleep apnea (adult) (pediatric), R40.0 - Somnolence Scribe Plan - Not visible on output: I spent 12 minutes speaking with the patient on the phone plus an additional 10 minutes reviewing and updating records for a total of 22 minutes Coding Level of Care Code Est Pt Level 3 (56332) Diagnoses Obstructive sleep apnea G47.33 Central sleep apnea G47.31 Daytime somnolence R40.0 Time Spent (min) 10
== END 2023-10-22 12:04 | disposition home or self-care (01) ==
LOC: HO.HPSW 10:53
PROVIDERS: PCP Internal Medicine; Visit Provider Nurse Practitioner Family
DX: G47.33 Obstructive sleep apnea (adult) (pediatric) (principal); G47.31 Primary central sleep apnea; R40.0 Somnolence
CPT/HCPCS: 99213

== ENCOUNTER → 2023-10-22 10:53 | Outpatient (BNVA) | payer OTHER, SELFPAY | PROVIDERS: PCP Internal Medicine; Visit Provider Nurse Practitioner Family | DX: G47.33 Obstructive sleep apnea (adult) (pediatric) (principal); G47.31 Primary central sleep apnea; R40.0 Somnolence | CPT/HCPCS: 99212 ==

== ENCOUNTER → 2023-11-01 15:07 | Outpatient (BNVA) | payer OTHER, SELFPAY | PROVIDERS: PCP Internal Medicine; Visit Provider Student in an Organized Health Care Education/Training Program | DX: R76.8 Other specified abnormal immunological findings in serum (principal) | CPT/HCPCS: 99212 ==

== ENCOUNTER → 2023-11-17 20:30 | Outpatient (REF) | payer OTHER, SELFPAY | LOC: HO.SL 20:30 | PROVIDERS: Visit Provider Nurse Practitioner Family | DX: G47.31 Primary central sleep apnea (principal); G47.33 Obstructive sleep apnea (adult) (pediatric); R40.0 Somnolence | CPT/HCPCS: 95810 ==

== ENCOUNTER → 2023-11-17 21:31 | Outpatient (BNV) | payer OTHER, SELFPAY | PROVIDERS: Visit Provider Internal Medicine | DX: R06.83 Snoring (principal) | CPT/HCPCS: 95810 ==

== ENCOUNTER 2023-12-29 12:02 | Outpatient (AMB) | payer OTHER, SELFPAY ==
--- NOTE | 2023-12-29 10:54 | A.OFFVIS_ITS ---
Intake Visit Reasons: BAKARI/ sleep study results Allergies Penicillins [PENICILLINS] Allergy (Severe, Verified 11/01/23 15:42) Anaphylaxis HPI HPI BAKARI/ sleep study results: Details: Redd is a pleasant 63 year old male, former smoker with less than 10 pack year history, quit 10 years ago, with underlying BAKARI on BiPAP and asthma since childhood. Today's visit was conducted via telephone to review in lab PSG results. At this time denies any respiratory symptoms. He has been using BiPAP continuously for resolution in snoring. Overall reports symptoms of daytime fatigue wax and wane. [facility] Medical History Primary osteoarthritis of hands, bilateral Chronic fatigue DELGADO (dyspnea on exertion) JONI positive Polyarthralgia Celiac disease History of ventricular tachycardia Diverticulitis Hemorrhoids Surgical History History of colonoscopy H/O esophagogastroduodenoscopy H/O neck surgery H/O cardiac radiofrequency ablation H/O rhinoplasty Social History Household Members: Spouse Housing: House Alcohol intake: never Patient Tobacco Use Status: Former Tobacco user Tobacco use type: Cigarette Cigarettes Per Day: 10 Years Smoked: 5 e-Cigarette/Vaping Use: Never Used Second Hand Smoke Exposure: Yes service: No Current occupational status: employed 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 Cognitive needs: No Hearing needs: No Vision needs: Yes (Glasses) Review of Systems Const All systems reviewed & are unremarkable except as noted in HPI and below Physical Exam Const General: cooperative and no acute distress Orientation/consciousness: patient oriented x3 Resp Effort & Inspection: normal respiratory effort, able to speak in complete sentences and no audible wheezes Neuro General: patient oriented x3 Psych Mental Status: mental status grossly normal Speech and movement: Clear speech present Attitude: cooperative Thought process: Normal thought process present Thought content: Normal thought content present Insight: Good insight present (Psych) Judgement: Good judgement present (Psych) Telehealth Telehealth Location of provider rendering services: practice address Location of patient: address on file Patient Identification confirmed using: Name, : Yes Telehealth method: voice only Patient verbally consented to treatment: Yes Patient verbally consented to billing insurance company: Yes Patient informed of any privacy concerns related to visit: Yes Assessment & Plan Assessment & Plan (1) Daytime somnolence: Code(s): R40.0 - Somnolence Category: Medical Plan Reviewed results of home sleep study as well as in lab PSG, both were negative. Discussed finding other ways to minimize snoring. All questions were answered and patient is in agreement of plan. Will follow up PRN. Coding Level of Care Code Tele Est Pt Level 3 (55224) Diagnoses Daytime somnolence R40.0
== END 2023-12-29 12:02 | disposition home or self-care (01) ==
LOC: HO.HPSW 12:02
PROVIDERS: Visit Provider Nurse Practitioner Family
DX: R40.0 Somnolence (principal)
CPT/HCPCS: 99213

== ENCOUNTER → 2023-12-29 12:02 | Outpatient (BNVA) | payer OTHER, SELFPAY | PROVIDERS: Visit Provider Nurse Practitioner Family ==

== ENCOUNTER 2024-08-17 11:25 | Outpatient (AMB) | payer MEDICARE, MEDICAID, SELFPAY ==
--- NOTE | 2024-08-17 11:54 | MHC.PC.OV ---
Intake Visit Reasons: annual exam Intake Note: Patient is here today for a physical. 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 per policy Accompanied by: Self / Same As Patient Allergies Penicillins [PENICILLINS] Allergy (Severe, Verified 08/17/24 11:55) Anaphylaxis Tobacco use date assessed: 08/17/24 Fall risk assessment: No Falls in past year Last assessed Fall Risk: 08/17/24 Dental Screening Dental Screen Date: 08/17/24 Did you have a dental visit in the last 12 months?: Yes Did you have a dental problem in the last 6 months where you did not have access to dental care?: No Was dental information given to patient?: Patient has dentist [facility] Medical History Primary osteoarthritis of hands, bilateral Chronic fatigue DELGADO (dyspnea on exertion) JONI positive Polyarthralgia Celiac disease History of ventricular tachycardia Diverticulitis Hemorrhoids Surgical History History of colonoscopy H/O esophagogastroduodenoscopy H/O neck surgery H/O cardiac radiofrequency ablation H/O rhinoplasty Social History Household Members: Spouse Housing: House Alcohol intake: never Patient Tobacco Use Status: Former Tobacco user Tobacco use type: Cigarette Cigarettes Per Day: 10 Years Smoked: 5 e-Cigarette/Vaping Use: Never Used Second Hand Smoke Exposure: Yes service: No Current occupational status: employed 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 1. Little interest or pleasure in doing things: not at all 2. Feeling down, depressed, or hopeless: not at all 3. Trouble falling or staying asleep, or sleeping too much: not at all 4. Feeling tired or having little energy: not at all 5. Poor appetite or overeating: not at all 6. Feeling bad about yourself - or that you are a failure or have let yourself or your family down: not at all 7. Trouble concentrating on things, such as reading the newspaper or watching television: not at all 8. Moving or speaking so slowly that other people could have noticed. Or the opposite - being so fidgety or restless that you have been moving around a lot more than usual: not at all 9. Thoughts that you would be better off or of hurting yourself in some way: not at all Total score: 0 Depression Screening Interpretation: Negative Depression Screening Done: Yes Source: Developed by Drs. Danny Blount, Sanam Chaudhary, Pk Perla and colleagues, with an educational rocío from [employer]. Thrive Questionnaire Date Thrive assessed: 08/15/24 I am a: Patient What is your living situation today?: I have a steady place to live Within the past 12 months, did the food you bought not last and you didn't have the money to get more?: Never true Within the past 12 months, did you worry whether your food would run out before you got money to buy more?: Never true Do you have trouble paying for medicines?: No Do you have trouble getting transportation to medical appointments?: No Do you have trouble paying your heating and electricity bill?: Yes Do you have trouble taking care of your child, family member or friend?: Yes Do you have trouble with day-to-day activities such as bathing, preparing meals, shopping, managing finances, etc.?: No Are you currently unemployed and looking for a job?: I choose not to answer this question Are you interested in more education?: I choose not to answer this question Please select the resources that you would like help with: Care for elder or disabled THRIVE Score: 1 AUDIT C Alcohol Use Questionnaire (AUDIT-C) 1. How often do you have a drink containing alcohol?: Never 3. How often do you have six or more drinks on one occasion?: Never Total Score: 0 TARUN-7 AMB Questionnaire TARUN-7 Date TARUN - 7 assessed: 08/17/24 Feeling nervous, anxious, or on edge: 1 = Several days Not being able to stop or control worryin = Not at all Worrying too much about different things: 0 = Not at all Trouble relaxin = Several days Being so restless that it is hard to sit still: 0 = Not at all Becoming easily annoyed or irritable: 1 = Several days Feeling afraid as if something awful might happen: 1 = Several days Total TARUN-7 score (0-4 normal; 5-9 mild; 10-14 moderate; 15-21 severe): 4 Source: Developed by Drs. Danny Blount, Sanam Chaudhary, Pk Perla and colleagues, with an educational rocío from [employer]. Physical exam (Primary Care) Tobacco/Smoking Status: Tobacco use Status Tobacco use date assessed 10/07/23 12/22/23 14:28 Patient Tobacco Use Status Former Tobacco user 12/22/23 14:28 Tobacco use type Cigarette 12/22/23 14:28 e-Cigarette/Vaping Use Never Used 12/22/23 14:28 Depression Screening Interpretation: Negative Thrive Assessment: Date of Thrive Assessment Date Thrive assessed 08/15/24 08/15/24 11:56 Coding
[2024-08-17 11:55] VITALS: BP 100/62; PULSE 92; TEMP 36.6; O2SAT 96; BMI 26.1
--- NOTE | 2024-08-17 11:56 | A.OFFVIS_ITS ---
Intake Vital Signs 08/17/24 11:55 08/17/24 12:01 Height 5 ft 9 in Weight 177 lb BMI 26.1 26.1 BP 100/62 Blood Pressure Location Lt brachial Position Sitting Pulse 92 Pulse Source Pulse Oximeter Temp 97.8 F Temp Source Temporal Artery Scan Pulse Oximetry (%) 96 Oxygen Delivery Method Room Air Intake Visit Reasons: annual exam Intake Note: Patient is here for an Annual Wellness Visit. 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 In addition he reports bilateral lower back pain, which he does not perceive as muscular in origin. This pain is accompanied by increased urinary frequency, with small amounts dribbled frequently. Despite being on tamsulosin for prostate hypertrophy for 15 years, the urinary symptoms persist. Patient would also like to discuss rectal bleeding. He reports Rectal bleeding started a year ago, primarily occurring with stool wiping, and is associated with loose stools without straining. The patient also mentions unexplained weight changes, having reached his heaviest at 193 pounds, and now reducing to 177 pounds through dietary changes. He conveys a family history of cancer, with his mother currently in end-stage cancer, impacting his mental well-being, though he does not report clinical depression. He denies any SI or HI or any auditory visualizations. Does not feel like he needs to speak to a therapist or psychiatrist at this time will need to be on any medication for depression. He reports he can not change his mother's diagnosis and he understands that. Social History - Housing: Lives independently; manages household tasks and finances. - Family Status: ; primary caregi carlos for mother. - Exercise: 5,000 to 10,000 steps a day, 3-4 times per week. - Nutritional Intake: Reduced carbohydra aditya and sugars; predominantly protein- based diet. - Weight Management: Actively reducing w eight from 193 to 177 pounds. - Functional Status: Independent in [facility]. HPI Comments History of Present Illness Details Patient is here for an Annual Wellness Visit today. List of all patient's Health Care Provider's PCP- Dr. Rod Reviewed past medical history- yes Reviewed surgical / hospitalization history- yes Reviewed family history- yes Reviewed current medications- yes Review all current providers patient is actively being followed by- yes Risk Factors Do exercise? [id number] steps a day How many days per week? 3 days a week Minutes per episode question? Throughout the day intermittently Do you joseph regularly? No Do go to the dentist yearly? yes or every 6 months? yes Do use a seatbelt in the vehicle? yes Sexual health: Do you use protection such as condom's? not currently sexually active at this time does not use condoms due to patient is . Do you use Control? N/A Home safety Throw rugs? Yes Grab bars? No Raised toilet seat? No Working smoke detectors? Yes Activities of daily living Do you have urinary incontinence? no Difficulty bathing or showering? no ?Difficulty dressing??no ?Difficulty grooming? no ?Difficulty feeding myself? no ?Difficulty using the toilet??no ?Difficulty getting in and out of bed??no ?Difficulty walking? no ?Receives help from other person's with any of the above tasks??no Instrumental activities of daily living Uses telephone -?yes ?Gets to place out of walking distance-yes ?Who does the Food preparation?? Patient and occasionally his ?Who goes shopping for groceries? Patient occasionally his ?Can perform minor home maintenance-?patient does ?Can perform own laundry-?patient does ?Can perform own housework-patient does ?Manages own money/Finances-?patient does ?Transportation?? Patient has his own transportation ?Do you Drive?? Patient Drives ?Do you Drive at Night?? Yes drives at night without any difficulties ?Can you Manage own medications? Patient can manage his own medications If you can not manage your own medications, who does manage your medications?? Patient manages his own medications Fall risk assessment Fall risk? no Have you had any falls with injuries in the past year? No falls Have you had 2 or more falls in the past year? No falls Fall risk assessment: No fall risk Visit History Last Wellness Visit: Date? Unsure If diabetic, last diabetic eye exam: Date? Patient is prediabetic Last hospitalization: If any? Additonal Services needed/Case Management Referrals? Yes colonoscopy referral Social? no Financial? no Medical referrals? Referred to a gastroenterology for colon cancer screening Education? Patient does not need any education on anything at this time Medication management? Patient does not need medication management at this time able to manage his own medications Cognitive Status is Normal End of life planning Discussed advanced directives- Yes Member did not wish to discuss above? No Advanced directives on file? Yes per patient Discussed wishes expressed in advanced directives? Patient reports it is on file he discussed this with a steam bone press tender as well and his was present Encouraged member to inform others about care preferences. [facility] Medical History (Updated 08/17/24 @ 12:46 by Catarina Ye PA-C) Overweight with body mass index (BMI) of 26 to 26.9 in adult Urinary frequency Back pain Encounter for annual wellness exam in Medicare patient Rectal bleeding Primary osteoarthritis of hands, bilateral Chronic fatigue DELGADO (dyspnea on exertion) JONI positive Polyarthralgia Celiac disease History of ventricular tachycardia Diverticulitis Hemorrhoids Surgical History History of colonoscopy H/O esophagogastroduodenoscopy H/O neck surgery H/O cardiac radiofrequency ablation H/O rhinoplasty Social History Household Members: Spouse Housing: House Alcohol intake: never Patient Tobacco Use Status: Former Tobacco user Tobacco use type: Cigarette Cigarettes Per Day: 10 Years Smoked: 5 e-Cigarette/Vaping Use: Never Used Second Hand Smoke Exposure: Yes service: No Current occupational status: employed 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 Cognitive needs: No Hearing needs: No Vision needs: Yes (Glasses) Questionnaire Medicare Wellness Checkup [age] What gender do you identify with?: male During the past 4 weeks, how much have you been bothered by emotional problems such as feeling anxious, depressed, irritable, sad or downhearted, and blue?: quite a bit During the past 4 weeks, has your physical & emotional health limited your social activities with family, friends, neighbors, or groups?: quite a bit During the past 4 weeks, how much bodily pain have you generally had?: very mild pain During the past 4 weeks, was someone available to help you if you needed & wanted help?: yes, as much as I wanted During the past 4 weeks, what was the hardest physical activity you could do for at least 2 minutes?: moderate Can you get to places out of walking distance without help? (For eg., can you travel alone on buses, taxis or drive your car?): Yes Can you go shopping for groceries or clothes without someone's help?: Yes Can you prepare your own meals?: Yes Can you do your housework without help?: Yes Because of any health problems, do you need the help of another person with your personal care needs such as eating, bathing, dressing or getting around the house?: No Can you handle your own money without help?: Yes During the past 4 weeks, how would you rate your health in general?: good During the past 4 weeks how have things been going for you?: pretty bad Are you having difficulties driving your car?: no Do you always fasten your seat belt when you are in a car?: yes, usually During past 4 weeks, have you been bothered by the following: never: Falling or dizzy when standing up, Sexual problems?, Trouble eating well?, Teeth or denture problems? and Problems using the telephone? and often: Tiredness or fatigue? Have you fallen 2 or more times in the past year?: No Are you afraid of falling?: No Are you a smoker?: no During the past 4 weeks, how many drinks of wine, beer, or other alcoholic beverages did you have?: no alcohol at all Do you exercise for about 20 minutes 3 or more times a week?: yes, most of the time Have you been given information to help with the following?: yes: Keeping track of your medications? and no: Hazards in your house that might hurt you? How often do you have trouble taking medicines the way you have been told to take them?: I always take medicine as prescribed How confident are you that you can control & manage most of your health problems?: very confident What is your race?: White Mini Mental State Exam (MMSE) Orientation What is the (year) (season) (date) (day) (month)?: year, season, date, day and month Where are we (state) (county) (town or city) (hospital) (floor)?: state, county, town or city, hospital/clinic and floor Registration Name of 3 unrelated objects clearly and slowly, then ask patient to repeat all 3 of them. (1st repeat determines score. Make sure they can repeat all three): object 1, object 2 and object 3 Attention & Calculation (CHOOSE ONE) Ask pt to begin with 100 & count backward by 7. Stop after 5 repeats. If pt cannot ask them to spell the word WORLD backward.: 93, 86, 79, 72 and 65 Spell WORLD backwards (DLROW): 5 letters Recall Ask patient to repeat the 3 items from question #3.: object 1, object 2 and object 3 Language Show patient a wristwatch & ask what it is. Repeat for pencil.: watch and pencil Ask the patient to repeat the phrase 'No ifs, ands, or buts' after you.: correct Ask the patient to 'take a piece of paper with their right hand' 'fold paper in half' 'place paper on floor': take paper in right hand, fold paper in half and place paper on floor Print the sentence 'CLOSE YOUR EYES' on a piece. If patient actually closes eyes then score.: followed written direction Give patient a blank piece of paper & ask to write a sentence. Score if it contains a noun & verb.: sentence contains subject and verb Ask patient to copy figure of intersecting pentagons exactly. Score if all 10 angles & 2 intersects are included.: all 10 angles present & 2 are intersected Score Score: 35 Activity of Daily Living Bathing - sponge bath, tub bath or shower: receives no assistance (gets in/out by self, if usual bathing means Dressing - getting clothes from closets & drawers, including inner/outer garments & fasteners.: gets clothes & gets completely dressed without help Toileting - going to the 'toilet room' for urine/bowel elimination & cleaning self/arranging clothes: goes to toilet room, cleans self, arranges clothes without help Transfer: moves in & out of bed and chair without help (may use support object) Continence: controls urination/bowel movements completely by self Feeding: feeds self without help Total Score: 0 Information obtained from: patient Using telephone: independent Traveling: independent Shopping: independent Preparing meals: independent Housework: independent Taking medicine: independent Managing money: independent PHQ-9 Over the last 2 weeks, how often have you been bothered by any of the following problems? 1. Little interest or pleasure in doing things: not at all 2. Feeling down, depressed, or hopeless: several days 3. Trouble falling or staying asleep, or sleeping too much: not at all 4. Feeling tired or having little energy: several days 5. Poor appetite or overeating: not at all 6. Feeling bad about yourself - or that you are a failure or have let yourself or your family down: not at all 7. Trouble concentrating on things, such as reading the newspaper or watching television: several days 8. Moving or speaking so slowly that other people could have noticed. Or the opposite - being so fidgety or restless that you have been moving around a lot more than usual: not at all 9. Thoughts that you would be better off or of hurting yourself in some way: not at all Total score: 3 Depression Screening Interpretation: Positive Depression Screening Follow-up: Existing condition and Declines treatment (decline referrals) Depression Screening Done: Yes 25880 - PHQ-9 Billing: Yes Source: Developed by Drs. Danny Blount, Sanam Chaudhary, Pk Perla and colleagues, with an educational rocío from [employer]. Review of Systems Const Details: - Gastrointestinal: Reports rectal bleeding; denies constipation. - Genitourinary: Reports urinary frequency; denies incontinence. - Musculoskeletal: Reports bilateral lower back pain; denies muscular origin. - Neurological: Denies dizziness. - Psychological: Reports feeling depressed secondary to external stressors; denies need for medication or psychiatric help. All systems reviewed & are unremarkable except as noted in HPI and below Physical Exam Vital Signs: Last Vital Signs Temp 97.8 F 08/17/24 11:55 Pulse 92 08/17/24 11:55 BP 100/62 08/17/24 11:55 Pulse Ox 96 08/17/24 11:55 Oxygen Delivery Method Room Air 08/17/24 11:55 BMI result Body Mass Index 26.1 Const Other: Appearance: Alert. Oriented X3. No acute distress. Head: Normal external exam. Normocephalic. Atraumatic. Eyes: Pupils are equal, round, and reactive to light. Extraocular movements intact. Conjunctiva and sclera normal. Eyelids normal. Throat: Pharynx normal. Uvula midline. Moist mucous membranes. Neck: Normal inspection. Neck supple. Full range of motion. Cardiovascular: Normal heart rate and rhythm. Respiratory: No respiratory distress. Painless inspiration. Abdomen: Soft and nontender. No distention noted. No organomegaly noted. Back: Bilateral mid to lower back pain noted, not muscular in nature. No CVA tenderness is noted. No rashes are noted. Skin: Skin warm and dry. Normal skin color. Normal skin turgor. Extremities: Extremities exhibit normal range of motion. Neuro: Oriented X 3. No motor deficit. No sensory deficit. Reflexes normal. HEENT Other: Hearing screening Whisper test- passed normal whisper test Eyes Other: vision screening- normal Other: urinary incontinence? Patient denies Neuro Other: balance- normal balance Romberg- normal Romberg tandem walk test- normal tandem then walk test walk-in turned test- normal walk and turn test rise from sit to stand- normal rise from edt-ne-epsmi test Results Reviewed Results Reviewed: - Labs and Diagnostics: CRP, CBC, CMP, PSA, hemoglobin A1c, lipid panel, liver panel, magnesium, vitamin B12, vitamin D, thyroid function tests ordered; results pending. Assessment & Plan Assessment & Plan (1) Encounter for annual wellness exam in Medicare patient: Code(s): Z00.00 - Encounter for general adult medical examination without abnormal findings (2) Rectal bleeding: Code(s): K62.5 - Hemorrhage of anus and rectum Plan: Colonoscopy referral for screening with gastroenterology will call for appoint ment. (3) Back pain: Code(s): M54.9 - Dorsalgia, unspecified Plan: Plan involves monitoring and reevaluation if symptoms change or intensify. Will also order basic labs which includes kidney function. Condition is stable will continue to monitor. (4) Urinary frequency: Code(s): R35.0 - Frequency of micturition Plan: Continuation of Flomax, with a referral to urology for further evaluation. Condition is chronic and stable will continue to monitor. (5) Overweight with body mass index (BMI) of 26 to 26.9 in adult: Code(s): E66.3 - Overweight; Z68.26 - Body mass index [BMI] 26.0-26.9, adult Plan: Patient to continue improving his diet and exercise regimen. Condition is chronic and stable continue to monitor. (6) Celiac disease: Code(s): K90.0 - Celiac disease Plan: Continued adherence to gluten-free diet recommended. Condition is chronic and stable continue to monitor. Plan Plan Patient was informed and verbally consented to the use of an ambient scribe for clinic note documentation during this visit. 1. Bilateral Lower Back Pain Plan involves monitoring and reevaluation if symptoms change or intensify. 2. Increased Urinary Frequency Due To Prostate Issues Continuation of Flomax, with a referral to urology for further evaluation. 3. Rectal Bleeding Colonoscopy referral for screening with gastroenterology will call for appointment. 4. Overweight Encouraged dietary and exercise regimen, noting weight reduction progress. 5. Family History Of Cancer Noted impact on patient?s health monitoring and mental health considerations. 6. Celiac Disease Continued adherence to gluten-free diet recommended. I discussed with the patient the importance of continuing his current medication for prostate hypertrophy and referred him to urology for further evaluation. We reviewed his rectal bleeding concerns and arranged a referral for a colonoscopy due to family history and past findings of polyps. I advised on the benefits of dietary adjustments and regular exercise, especially given his recent weight changes. We acknowledged his familial cancer history and outlined ongoing screening and monitoring. Emotional health was also acknowledged, given the current stressors, with support systems in place from family. Lastly, potential insurance coverage for labs during the annual visit was reviewed, with alternative strategies for necessary diagnostic work if initially declined by insurance. Orders: Orders Comprehensive [place]. Panel Fast Today Z00.00 - Encounter for general adult medical examination without abnormal findings Liver Panel Today Z00.00 - Encounter for general adult medical examination without abnormal findings PSA,Total (Free>4and<10) Today Z00.00 - Encounter for general adult medical examination without abnormal findings Hemoglobin A1c Today Z00.00 - Encounter for general adult medical examination without abnormal findings C Reactive Protein Today Z00.00 - Encounter for general adult medical examination without abnormal findings Complete Blood Count Auto Diff Today Z00.00 - Encounter for general adult medical examination without abnormal findings Lipid Panel Today Z00.00 - Encounter for general adult medical examination without abnormal findings Erythrocyte Sedimentation Rate Today Z00.00 - Encounter for general adult medical examination without abnormal findings Magnesium Today Z00.00 - Encounter for general adult medical examination without abnormal findings Vitamin B12 and Folate Today Z00.00 - Encounter for general adult medical examination without abnormal findings Vitamin D 25-OH Total Today Z00.00 - Encounter for general adult medical examination without abnormal findings TSH reflex Free T4 Today Z00.00 - Encounter for general adult medical examination without abnormal findings Referrals Gastroenterology Referral K62.5 - Hemorrhage of anus and rectum, Z12.11 - Encounter for screening for malignant neoplasm of colon Patient Instructions: - Continue Flomax for urinary symptoms and await urology consultation. - Schedule colonoscopy with the gastroenterology department; they will reach out. - Maintain current dietary regimen focused on high protein and reduced carbohydrates. - Monitor symptoms and report any significant changes in back pain or bleeding. - Attend follow-up appointments as required based on upcoming test results. - Contact insurance company to confirm coverage details for any laboratory tests. - Call gastroenterology if no contact is made to arrange the colonoscopy appointment. Quality Reporting (2019) Depression/Bipolar (159/160/161/177) PHQ-9: Total score: 3 Coding Level of Care Code Medicare First (G0438) Est Pt Level 4 (86108) Diagnoses Encounter for annual wellness exam in Medicare patient Z00.00 Rectal bleeding K62.5 Back pain M54.9 Urinary frequency R35.0 Overweight with body mass index (BMI) of 26 to 26.9 in adult E66.3; Z68.26 Celiac disease K90.0 CPT Codes Advance Care Planning - Advance Care Planning discussion: On file, no changes ([id number]) Additional Codes PHQ-9 - 64353 - PHQ-9 Billing: Yes ([id number]) Time Spent (min) 60 Advance Care Planning Advance Care Planning discussion: On file, no changes Forms completed: Health Care Proxy ( Shanique Graham) and [facility] (On file pt believes.) Did not discuss due to Cultural/Spiritual beliefs: Yes
[2024-08-17 12:01] VITALS: BMI 26.1
== END 2024-08-17 12:49 | disposition home or self-care (01) ==
LOC: HO.HMCH 11:25
PROVIDERS: PCP Internal Medicine; Visit Provider Physician Assistant Medical
DX: Z00.00 Encounter for general adult medical examination without abnormal findings (principal); K62.5 Hemorrhage of anus and rectum; E66.3 Overweight; M54.9 Dorsalgia, unspecified; Z68.26 Body mass index [BMI] 26.0-26.9, adult; R35.0 Frequency of micturition; K90.0 Celiac disease

== ENCOUNTER → 2024-08-17 11:25 | Outpatient (BNVA) | payer MEDICARE, MEDICAID, SELFPAY | PROVIDERS: PCP Internal Medicine; Visit Provider Physician Assistant Medical | DX: Z00.00 Encounter for general adult medical examination without abnormal findings (principal); K62.5 Hemorrhage of anus and rectum; M54.9 Dorsalgia, unspecified; R35.0 Frequency of micturition; E66.3 Overweight; Z68.26 Body mass index [BMI] 26.0-26.9, adult; K90.0 Celiac disease; Z71.3 Dietary counseling and surveillance | CPT/HCPCS: 96127; 99212 ==

== ENCOUNTER 2024-10-17 11:21 | Outpatient (AMB) | payer MEDICARE, MEDICAID, SELFPAY ==
[2024-10-17 11:29] VITALS: BP 110/66; PULSE 85; TEMP 36.6; O2SAT 95; BMI 26.4
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
--- OUTSIDE RECORDS SUMMARY | 2024-10-17 12:26 | XMS_ITS | Clinical Summary ---
Author Organization [facility] Address [address] [place] [address] Care Team Providers Care Pool Lifeguard Name Role Phone Slim Melgar NP Primary Care Provider [phone] Source Comments PLEASE NOTE, if this patient is a minor, it may be UNLAWFUL to discuss sensitive information that is contained in these records (such as FAMILY PLANNING, MENTAL HEALTH or SUBSTANCE ABUSE) with the minor patient's parent or other person without the patient's specific authorization.[facility] Allergies Active Allergy Reactions Criticality Noted Date Comments Penicillins 05/22/2015 Pollen 05/22/2015 Medications sildenafil (REVATIO) 20 mg tablet Take 20 mg by mouth 3 (three) times daily. Active zolpidem (AMBIEN) 5 mg tablet Take 10 mg by mouth nightly at bedtime as needed for sleep. Take immediately before bedtime. Active testosterone (ANDROGEL) 1 % (50 mg/5 gram) gel 6 Active diclofenac (VOLTAREN) 1 % gelIndications:M idline low back pain without sciatica, unspecified chronicity Apply topically 2 (two) times daily as needed for pain Apply to most painful area. 100 g 6 7 Active triamcinolone (KENALOG) 0.1 % creamIndications :Skin rash Apply topically 2 (two) times daily 15 g 2 7 Active nadolol (CORGARD) 20 mg tabletIndication s:SVT (supraventricula r tachycardia) (CMS & HHS-HCC) Take 1 Tab by mouth once daily 7 Active oxybutynin (DITROPAN-XL) 5 mg 24 hr tabletIndication s:OAB (overactive bladder) Take 1 Tab by mouth once daily Swallow whole. Do not break, crush, or chew. 30 Tab 5 7 Active tamsulosin (FLOMAX) 0.4 mg 24 hr capsuleIndicatio ns:Benign prostatic hyperplasia, unspecified whether lower urinary tract symptoms present Per Uro. Take 30 minutes following the same meal each day. Swallow whole. Do not open, crush, or chew. 30 Cap 7 Active Active Problems Problem Noted Date Diagnosed Date Urinary urgency 03/04/2019 OAB (overactive bladder) 08/07/2016 Benign prostatic hyperplasia 05/12/2016 Overview (03/04/2019): // seen at [facility] Hypogonadism in male 07/18/2015 SVT (supraventricular tachycardia) ([facility]) 07/18/2015 ED (erectile dysfunction) 07/18/2015 Colon polyp 07/18/2015 Celiac disease ([facility]) 07/18/2015 Sleep apnea 07/18/2015 Social History Tobacco Use Types Packs/Day Years Used Date Smoking Tobacco: Never Alcohol Use Standard Drinks/Week Comments No 0 (1 standard drink = 0.6 oz pur e alcohol) Social Connections Answer Date Recorded Social Connections and Isolation 0 12/04/2018 Financial Resource Strain Answer Date R ecorded Financial Resource Strain 0 2018 Stress Answer Date Recorded Stress 0 12/04/2018 Physical Activity Answer Date Recorded Physical Activity 0 12/04/2018 Food Insecurity Answer Date Recorded Food 0 12/04/2018 Transportation Needs Answer Date Record ed Transportation 0 12/04/2018 Housing Stability Answer Date Recorded Housing 0 12/04/2018 Safety and Environment Answer Date Shahram rded Safety 0 12/04/2018 Utilities Answer Date Recorded Utilities 0 12/04/2018 Employment Answer Date Recorded Employment 0 12/04/2018 Sex and Gender Information Value Date Recorded Sex Assigned at Not on file Legal Sex Male 1:44 PM PST Gender Identity Not on file Sexual Orientation Not on file Last Filed Vital Signs Vital Sign Reading Time Taken Comments Blood Pressure 104/66 12/30/2016 2:55 PM EDT Pulse 84 12/30/2016 2:55 PM EDT Temperature 37.2 C (98.9 F) 12/30/2016 2:55 PM EDT Respiratory Rate 17 12/30/2016 2:55 PM EDT Oxygen Saturation 97% 08/07/2016 2:17 PM EDT Inhaled Oxygen Concentration - - Weight 74.4 kg (164 lb) 12/30/2016 2:55 PM EDT Height 172.7 cm (5' 8 ) 05/12/2016 2:23 PM EST Body Mass Index 24.94 05/12/2016 2:23 PM EST Plan of Treatment Not on file Insurance [facility] Member Subscriber Plan / Payer (Ef fective 2016-Present) Name:[place] Saman Cloud Relation to Subscriber:Self Name:SAMAN HIGH Payer ID:[id number] Group ID:Not on file Type:Medicaid Address: [facility] [id number] [place] [id number] Care Teams Pool Lifeguard Relationship Specialty Start Date End Date Slim Melgar NP [address] [place] [address] PCP - General 02/17/18
--- OUTSIDE RECORDS SUMMARY | 2024-10-17 12:26 | XMS_ITS | Clinical Summary ---
Author Organization [facility] ity Address [address] [place] [address] Care Team Providers Care Radiator Fitter Name Role Phone Unavailable Primary Care Provider Unavailabl e Social History Tobacco Use Types Packs/Day Years Used Date Smoking Tobacco: Never Assessed Sex and Gender Information Value Date Recorded Sex Assigned at Not on file Legal Sex Male 2:35 AM EST Gender Identity Not on file Sexual Orientation Not on file Plan of Treatment Health Maintenance Due Date Last Done Comments Zoster Vaccines (1 of 2) 2009 Pneumococcal Vaccine: 50+ Ye ars (2 of 2 - PCV) 10/24/2016 10/25/2015 Abdominal Aortic Aneurysm (A AA) Screen 03/15/2022 Cholesterol Screening (Lipid Panel) 03/15/2022 Colorectal Cancer Screening: Colonoscopy 03/15/2022 Depression Screening 03/15/2022 Hepatitis C Screening 03/15/2022 Social Influencers of Health Screening 03/15/2022 COVID-19 Vaccine (1 - 2023-2 5 season) 2023 Falls Risk Assessment 01/25/2024 Influenza Vaccine (#1) 2024 DTaP,Tdap,and Td Vaccines (2 - Td or Tdap) 03/18/2028 03/18/2018 RSV Immunization Adult Patie nts (1 - 1-dose 75+ series) 2034 HIB Vaccines Aged Out No longer eligi ble based on patient's age to complete this topic HPV Vaccines Aged Out No longer eligi ble based on patient's age to complete this topic Hepatitis A Vaccines Aged Out No long er eligible based on patient's age to complete this topic Hepatitis B Vaccines Aged Out No long er eligible based on patient's age to complete this topic IPV Vaccines Aged Out No longer eligi ble based on patient's age to complete this topic MMR Vaccines Aged Out No longer eligi ble based on patient's age to complete this topic Meningococcal ACWY Vaccine Aged Out N o longer eligible based on patient's age to complete this topic Meningococcal B Vaccine Aged Out No l onger eligible based on patient's age to complete this topic RSV Immunization Patients Un glo 20 months Aged Out No longer eligible b ased on patient's age to complete this topic Varicella Vaccines Aged Out No longer eligible based on patient's age to complete this topic
== END 2024-10-17 12:17 | disposition home or self-care (01) ==
PROVIDERS: PCP Internal Medicine; Visit Provider Physician Assistant Medical
DX: T21.22XA Burn of second degree of abdominal wall, initial encounter (principal)

== ENCOUNTER → 2024-10-17 11:21 | Outpatient (BNVA) | payer MEDICARE, MEDICAID, SELFPAY | PROVIDERS: PCP Internal Medicine; Visit Provider Physician Assistant Medical | DX: Z23 Encounter for immunization (principal); T21.22XD Burn of second degree of abdominal wall, subsequent encounter | CPT/HCPCS: 90471; 90715; 99212 ==

== ENCOUNTER 2024-10-25 09:29 | Outpatient (REF) | payer MEDICARE, MEDICAID, SELFPAY ==
--- OUTSIDE RECORDS SUMMARY | 2024-10-25 09:56 | XMS_ITS | Clinical Summary ---
Author Organization [facility] Address [address] [place] [address] Care Team Providers Care Grey Iron Molder Name Role Phone Slim Melgar NP Primary Care Provider [phone] Source Comments PLEASE NOTE, if this patient [...] Hypogonadism in male 07/18/2015 SVT (supraventricular tachycardia) ([facility]) 07/18/2015 ED (erectile dysfunction) 07/18/2015 Colon polyp 07/18/2015 Celiac disease ([facility]) 07/18/2015 Sleep apnea 07/18/2015 Social History Tobacco [...] of Treatment Not on file Insurance [facility] Member Subscriber Plan / Payer (Ef fective 2016-Present) Name:[place] Saman Cloud Relation to Subscriber:Self Name:SAMAN HIGH Payer ID:[id number] Group ID:Not on file Type:Medicaid Address: [facility] [id number] [place] [id number] Care Teams Grey Iron Molder Relationship Specialty Start Date End Date Slim Melgar NP [address] [place] [address] PCP - General 02/17/18
--- OUTSIDE RECORDS SUMMARY | 2024-10-25 09:56 | XMS_ITS | Clinical Summary ---
Author Organization [facility] ity Address [address] [place] [address] Care Team Providers Care Electric Wirer Name Role Phone Unavailable Primary Care Provider [...]
[2024-10-25 10:03] LABS: MANUAL DIFF FLAG NO
[2024-10-25 10:11] LABS: Hematocrit 44.7 % (42.0-52.0); Hemoglobin 15.8 g/dl (14.0-18.0); Imm Gran Abs Auto 0.03 X10*3/uL (0.00-0.03); Imm Gran Pct Auto 0.5 % (0.0-0.4); Lymphocytes Absolute Auto 1.9 X10*3/uL (1.2-4.9); Mean Corpuscular HGB Conc 35.3 g/dl (31.0-36.0); Mean Corpuscular Hemoglobin 30.7 pg (27.0-33.0); Mean Corpuscular Volume 86.8 fL (80.0-98.0); NRBC Abs Auto 0.000 X10*3/uL (0.0-0.012); NRBC Pct Auto 0.0 /100WBC (0.0-0.2); Platelet Count 301 X10*3/uL (160-400); Red Blood Count 5.15 X10*6/uL (4.60-5.80); White Blood Count 6.6 X10*3/uL (4.8-10.8)
[2024-10-25 10:17] LABS: Hemoglobin A1C 159.1595 umol/L; Total Hemoglobin (HGBA1C) 3948.6527 umol/L
[2024-10-25 11:23] LABS: Alanine Aminotransferase 49 U/L (0-40); Albumin Level 4.3 g/dL (3.5-5.0); Alkaline Phosphatase 49 U/L (39-117); Anion Gap 12 (12-20); Aspartate Amino Transferase 29 U/L (5-37); Blood Urea Nitrogen 9 mg/dL (9-16); Calcium 9.2 mg/dL (8.4-10.2); Carbon Dioxide 25 mmol/L (22-29); Chloride 110 mmol/L (96-108); Cholesterol 153 mg/dL (<200); Estimated Glomerular Filt Rate > 60; HDL Cholesterol 40 mg/dL (>40); Magnesium 2.2 mg/dL (1.6-2.6); Potassium 4.0 mmol/L (3.3-5.1); Sodium 143 mmol/L (135-145); Total Protein 6.9 g/dL (6.5-8.0); Triglycerides 94 mg/dL (<150)
[2024-10-25 11:37] LABS: PSA,Total (Free>4and<10) 2.60 ng/mL (0.00-4.00)
[2024-10-25 11:40] LABS: Folate 13.7 ng/mL (> or = 4.0); Vitamin B12 733 pg/mL (200-900)
== END 2024-10-25 09:30 | disposition home or self-care (01) ==
LOC: HO.LAB 09:29
PROVIDERS: PCP Physician Assistant Medical; Visit Provider Physician Assistant Medical
DX: Z00.00 Encounter for general adult medical examination without abnormal findings (principal); Z12.5 Encounter for screening for malignant neoplasm of prostate; R19.7 Diarrhea, unspecified; K92.1 Melena; K21.9 Gastro-esophageal reflux disease without esophagitis; R14.0 Abdominal distension (gaseous); Z13.1 Encounter for screening for diabetes mellitus; Z13.220 Encounter for screening for lipoid disorders
CPT/HCPCS: 36415; 80053; 80061; 80076; 82248; 82306; 82607; 82746; 83036; 83735; 84153; 84443; 85025; 85652; 86140; 99202

== ENCOUNTER 2024-10-25 10:06 | Outpatient (AMB) | payer MEDICARE, MEDICAID, SELFPAY ==
--- NOTE | 2024-10-25 10:13 | MHC.OFFVIS ---
Vital Signs 10/25/24 10:15 Height 5 ft 9 in Weight 179 lb BMI 26.4 BP 117/63 Blood Pressure Location Lt brachial Position Sitting Pulse 72 Pulse Oximetry (%) 97 Oxygen Delivery Method Room Air Intake Visit Reasons: colo screening/ rectal bleed Intake Note: Patient new consult for 2nd Colonoscopy screening/ rectal bleed. Patient cc: chronic abdominal pain, heartburn/burping a lot, more than 8 BM daily with diarrhea and blody stool, and fatigue. Diesel Engine I Pipe Fitter Required: No Accompanied by: Self / Same As Patient Allergies Penicillins (PENICILLINS) Allergy (Severe, Verified 10/25/24 10:13) Anaphylaxis Medication List - Last Reconciled 10/25/24 by Janay Almeida CNP fluticasone propionate 50 mcg/actuation 1 spray intranasal DAILY levocetirizine (Xyzal) 5 mg PO DAILY silver sulfadiazine 1% 1 appl topical BID 7 days tamsulosin 0.8 mg (2 x 0.4 mg) PO BEDTIME HPI HPI colo screening/ rectal bleed: Details: Patient is a 64-year-old male with PMH of chronic fatigue, OA and celiac disease. Referred by PCP for further evaluation of rectal bleeding. Redd began experiencing rectal bleeding around the fall of last year, primarily noticing it upon wiping. He experiences bowel movements approximately three times before breakfast, with the consistency varying from formed Type 4, loose stools to diarrhea (type 6-7), occurring 10 to 12 times a day. His stools have been problematic for at least two to three years, primarily becoming looser over the past five years. While there is not significant abdominal pain associated with these symptoms, Redd does report rectal pain during bowel movements. Redd does experience bloating and occasional nausea. His last colonoscopy, approximately three to four years ago ( at outside facility), resulted in polyp removal. Reports heartburn occurs intermittently, which typically resolves with the use of [id number]-rgl-bhkxtri antacids like Tums. He reports some regurgitation but no trouble swallowing. Patient denies: fever/chills, vomiting, appetite changes, dysphasia, unintentional wt loss or melena/hematochezia. History of SVT for most of adult life, treated with ablation approximately 10 years ago. No current cardiac symptoms. No ongoing cardiology follow-up. Social hx: -denies ETOH use -vaping marijuana recreational drug use -former smoker, cessation 10 years ago - family hx as below -denies personal hx of CA -tolerated anesthesia in the past without difficulty. [facility] Medical History (Updated 10/25/24 @ 11:15 by Janay Almeida CNP) Diarrhea Bloody stools Rectal cancer Acid reflux Overweight with body mass index (BMI) of 26 to 26.9 in adult Urinary frequency Back pain Encounter for annual wellness exam in Medicare patient Rectal bleeding Primary osteoarthritis of hands, bilateral Chronic fatigue DELGADO (dyspnea on exertion) JONI positive Polyarthralgia Celiac disease History of ventricular tachycardia Diverticulitis Hemorrhoids Surgical History History of colonoscopy H/O esophagogastroduodenoscopy H/O neck surgery H/O cardiac radiofrequency ablation H/O rhinoplasty Family History (Updated 10/25/24 @ 10:53 by Janay Almeida CNP) Mother Cancer Social History Household Members: Spouse Housing: House Alcohol intake: never Patient Tobacco Use Status: Former Tobacco user Tobacco use type: Cigarette Cigarettes Per Day: 10 Years Smoked: 5 e-Cigarette/Vaping Use: Never Used Second Hand Smoke Exposure: Yes service: No Current occupational status: employed 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 Cognitive needs: No Hearing needs: No Vision needs: Yes (Glasses) Review of Systems Const Reports as per HPI ENT Reports as per HPI Card Reports as per HPI Resp Reports as per HPI GI Reports as per HPI Reports as per HPI Physical Exam Vital Signs: Last Vital Signs Pulse 72 10/25/24 10:15 BP 117/63 10/25/24 10:15 Pulse Ox 97 10/25/24 10:15 Oxygen Delivery Method Room Air 10/25/24 10:15 BMI result Body Mass Index 26.4 Const General: healthy appearing, no acute distress and well developed Nutritional Appearance: well nourished Orientation/consciousness: patient oriented x3 HEENT Head: Yes normal to inspection, Yes normocephalic and Yes atraumatic Face and sinus: Yes normal facial exam Eyes General: appearance normal, both eyes and all related structures Neck Neck: Yes normal visual inspection Resp Effort & Inspection: normal respiratory effort, able to speak in complete sentences, no tracheal deviation and symmetric chest movement Auscultation: clear to auscultation bilaterally Cardio Jugular venous distension: no JVD Rate: regular rate Rhythm: regular rhythm Heart sounds: S1 normal heart sound present, S2 normal heart sound present, no gallops and no murmurs GI Inspection: Yes normal to inspection, No distended and Yes other (w/ ab bloating) Palpation (GI): Soft to palpation, not firm, nontender and No hepatosplenomegaly present Auscultation: normal bowel sounds Neuro General: patient oriented x3 Gait exam (Neuro): Normal gait present Psych Appearance: grossly normal Mental Status: mental status grossly normal Speech and movement: Normal speech and movement present Affect: normal affect Attitude: cooperative Thought process: Normal thought process present Thought content: Normal thought content present Insight: Good insight present (Psych) Judgement: Good judgement present (Psych) Assessment & Plan Assessment & Plan (1) Diarrhea: Code(s): R19.7 - Diarrhea, unspecified Category: Medical Qualifiers: Diarrhea type: unspecified type Qualified Code(s): R19.7 - Diarrhea, unspecified Plan: Due to the persistent nature of diarrhea and the presence of rectal bleeding, further investigation is warranted to rule out potential colonic pathology, including polyps or malignancy. Patient declined additional workup for IBD at this time, preferring to proceed with colonoscopy and imaging first. Additional Tests: Schedule a colonoscopy. Abdominal/pelvic CT with oral and IV contrast (to assess for mass, obstruction, or diverticular bleeding while awaiting endoscopy) Medications:loperamide as needed for diarrhea: take 4 mg initially, then 2 mg after each loose stool, not to exceed the recommended daily dosage Lifestyle Modifications: Continue gluten-free diet for celiac disease. Continue reduced dairy and carbohydrate intake. Increase dietary fiber as tolerated Follow-Up: Follow-up after obtaining colonoscopy results to discuss findings and any modifications in treatment plan. (2) Bloody stools: Code(s): K92.1 - Melena Category: Medical Plan: ongoing X 1 year, primarily with wiping. DDX: Hemorrhoids, diverticular bleeding, polyps or malignancy Plan as above (3) Acid reflux: Code(s): K21.9 - Gastro-esophageal reflux disease without esophagitis Category: Medical Qualifiers: Esophagitis presence: esophagitis presence not specified Qualified Code(s): K21.9 - Gastro-esophageal reflux disease without esophagitis Plan: Intermittent heartburn and regurgitation, relieved by OTC antacids. Additional Tests: -Upper endoscopy to evaluate for esophagitis or other upper GI pathology Medications: -Continue Tums PRN for heartburn Lifestyle Modifications: -Avoid dietary triggers Follow-Up: -Reassess after endoscopy and as needed for symptom control Plan Follow-up after the endoscopy or sooner as needed Time: I spent a total of 45 minutes on the date of encounter which includes: Preparing to see the patient (reviewed previous documentation, test results and medical history) Performing a medically appropriate exam and/or evaluation Ordering medications, tests, and procedures Documenting clinical information in the health record Orders: Orders CT abdomen pelvis w IV con Today K92.1 - Melena, R14.0 - Abdominal distension (gaseous), R19.7 - Diarrhea, unspecified Medications: New bisacodyl Take four tablets once for 1 day per colonoscopy instructions 5 mg PO ONCE 4 tabs 0RF 1 day polyethylene glycol 3350 (Miralax) per colonoscopy prep instructions 238 grams PO ONCE 238 grams 0RF Coding Level of Care Code New Pt New Pt Level 4 (59050) Patient Type New Diagnoses Diarrhea, unspecified type R19.7 Diarrhea type: unspecified type Bloody stools K92.1 Gastroesophageal reflux disease, unspecified whether esophagitis present K21.9 Esophagitis presence: esophagitis presence not specified
[2024-10-25 10:15] VITALS: BP 117/63; PULSE 72; O2SAT 97; BMI 26.4
== END 2024-10-25 11:08 | disposition home or self-care (01) ==
LOC: HO.HGI 10:06
PROVIDERS: PCP Internal Medicine; Visit Provider Nurse Practitioner Family
DX: R19.7 Diarrhea, unspecified (principal); K92.1 Melena; K21.9 Gastro-esophageal reflux disease without esophagitis
CPT/HCPCS: 99204

== ENCOUNTER 2024-11-10 23:33 | Emergency (ER) | payer MEDICARE, MEDICAID, SELFPAY ==
--- NOTE | 2024-11-10 | ECG_ITS ---
Test Reason : MED CLEARANCE Blood Pressure : */* mmHG Vent. Rate : 76 BPM Atrial Rate : 76 BPM P-R Int : 188 ms QRS Dur : 104 ms QT Int : 390 ms P-R-T Axes : 59 -6 26 degrees QTcB Int : 438 ms Normal sinus rhythm Normal ECG When compared with ECG of 01-Mar-2023 10:08, No significant change was found Referred By: Generic ED Physician Electronically Signed By: SANDI GARCÍA MD
[2024-11-10 23:43] VITALS: BP 155/73; PULSE 84; RESP 18; TEMP 36.4; O2SAT 94; BMI 26.4
[2024-11-11 00:25] LABS: MANUAL DIFF FLAG NO
[2024-11-11 00:26] LABS: Hematocrit 44.3 % (42.0-52.0); Hemoglobin 15.7 g/dl (14.0-18.0); Imm Gran Abs Auto 0.13 X10*3/uL (0.00-0.03); Imm Gran Pct Auto 0.9 % (0.0-0.4); Lymphocytes Absolute Auto 1.1 X10*3/uL (1.2-4.9); Mean Corpuscular HGB Conc 35.4 g/dl (31.0-36.0); Mean Corpuscular Hemoglobin 30.4 pg (27.0-33.0); Mean Corpuscular Volume 85.9 fL (80.0-98.0); NRBC Abs Auto 0.000 X10*3/uL (0.0-0.012); NRBC Pct Auto 0.0 /100WBC (0.0-0.2); Platelet Count 258 X10*3/uL (160-400); Red Blood Count 5.16 X10*6/uL (4.60-5.80); White Blood Count 14.0 X10*3/uL (4.8-10.8)
[2024-11-11 00:46] VITALS: BP 141/96; PULSE 78; RESP 20; TEMP 36.5; O2SAT 95
[2024-11-11 00:49] LABS: Acetaminophen LAB < 3 mcg/mL (<30); Alanine Aminotransferase 52 U/L (0-40); Albumin Level 4.6 g/dL (3.5-5.0); Alkaline Phosphatase 50 U/L (39-117); Anion Gap 13 (12-20); Aspartate Amino Transferase 30 U/L (5-37); Blood Urea Nitrogen 17 mg/dL (9-16); Calcium 8.9 mg/dL (8.4-10.2); Carbon Dioxide 23 mmol/L (22-29); Chloride 109 mmol/L (96-108); Creatinine Clr Calc Pharmacy 72.9; Estimated Glomerular Filt Rate > 60; Magnesium 2.0 mg/dL (1.6-2.6); Potassium 3.8 mmol/L (3.3-5.1); Salicylate < 5.0 mg/dL (15-30); Sodium 141 mmol/L (135-145); Total Protein 7.3 g/dL (6.5-8.0)
--- NOTE | 2024-11-11 01:47 | ED_ITS ---
HPI - General Adult General Chief complaint: General Medical Stated complaint: mixed to medications together Time Seen by Provider: 11/11/24 01:15 Source: patient and family Mode of arrival: ambulatory Limitations: no limitations History of Present Illness ED Provider: Dr. Elinor Li HPI narrative: patient comes to the emergency room reporting that he feels nauseous, not quite well, feels that he is anxious, nauseous. Patient states that he recently lost his mother and he has been very depressed. patient states that he took [id number]-[id number] methionine and 10mg of 4-HO-Met together, which he ordered from the Internet. Patient states that he read the side effects under it, and now he has considerably has serotonin syndrome. patient denies SI or HI Related Data Home Medications ?Medication ?Instructions ?Recorded ?Confirmed fluticasone propionate 50 1 spray intranasal DAILY 10/25/24 mcg/actuation nasal spray,suspension Previous Rx's ?Medication ?Instructions ?Recorded levocetirizine 5 mg tablet (Xyzal) 5 mg PO DAILY #90 t abs 07/18/24 tamsulosin 0.4 mg capsule 0.8 mg (2 x 0.4 mg) PO BEDTI ME 09/28/24 #180 caps silver sulfadiazine 1 % topical 1 appl topical BID 7 d ays #25 grams 10/17/24 cream bisacodyl 5 mg tablet,delayed 5 mg PO ONCE 1 day #4 ta bs 10/25/24 release polyethylene glycol 3350 17 238 g PO ONCE #238 grams 0 10/25/24 gram/dose oral powder (Miralax) Allergies Allergy/AdvReac Type Severity Reaction Status Date / Time Penicillins (PENICILLINS) Allergy Severe Anaphylaxis Verified 11/10/24 23:47 Review of Systems 2 Review of Systems: Constitutional : No Weight loss, No Fever, No Chills, No Night Sweats, No Fatigue, No Malaise ENT/Mouth : No Hearing loss, No Ear Pain, No Nasal Congestion, No Sinus Pain, No Hoarseness, No sore throat, No Rhinorrhea, No Swallowing Difficulty Eyes: No Eye Pain, No Swelling, No Redness, No Foreign Body, No Discharge, No Vision Changes Cardiovascular : No Chest Pain, No SOB, No Dyspnea on Exertion, No Orthopnea, No Edema, No Palpitations Respiratory : No Cough, No Sputum, No Wheezing, No Smoke Exposure, No Dyspnea Gastrointestinal : Complaining of nausea vomiting, small amount of diarrhea today, No Constipation, No abdominal Pain, No Hematochezia, No Melena Genitourinary : no irregular bleeding, No Dysuria, No Urinary Frequency, No Hematuria, No Urinary Incontinence, No Urgency, No Flank Pain, No Urinary Flow Changes, No Hesitancy Musculoskeletal : No joint pain, No Myalgias, No Joint Swelling Skin : No Skin Lesions, No rash Neuro : No Weakness, No Numbness, No Paresthesias, No Loss of Consciousness, No Dizziness, No Headache Psych : complaining of feeling a bit anxious, a bit sad, morning his mother's , No SI/HI/AH/VH, No Social Issues, Heme/Lymph: No Bruising, No Bleeding,No Lymphadenopathy Endocrine : No Polyuria, No Polydipsia, No Temperature Intolerance [facility] Past Medical History Medical History Diarrhea Bloody stools Rectal cancer Acid reflux Overweight with body mass index (BMI) of 26 to 26.9 in adult Urinary frequency Back pain Encounter for annual wellness exam in Medicare patient Rectal bleeding Primary osteoarthritis of hands, bilateral Chronic fatigue DELGADO (dyspnea on exertion) JONI positive Polyarthralgia Celiac disease History of ventricular tachycardia Diverticulitis Hemorrhoids Surgical History History of colonoscopy H/O esophagogastroduodenoscopy H/O neck surgery H/O cardiac radiofrequency ablation H/O rhinoplasty Family History Family History (Updated 10/25/24 @ 10:53 by Janay Almeida CNP) Mother Cancer Social History Social History Household Members: Spouse Housing: House Alcohol intake: never Patient Tobacco Use Status: Former Tobacco user Tobacco use type: Cigarette Cigarettes Per Day: 10 Years Smoked: 5 Smoked in Last 30 Days: No e-Cigarette/Vaping Use: Never Used Second Hand Smoke Exposure: Yes Use of substances other than those prescribed or required for medical reasons: No Advance Directives: No Advance Directives Information Provided: No Do you have a plan to hurt others: No Plan service: No Current occupational status: employed 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 Oriented X3. No acute distress. Eyes: Pupils equal, round and reactive to light. ENT: Pharynx normal. Neck: Normal inspection. Neck supple. No lymph nodes noted. No crepitus CVS: Normal heart rate and rhythm. Pulses normal. Normal S1 and S2 Respiratory: No respiratory distress. Breath sounds normal. No Wheezing. No rales Abdomen: Soft and nontender. No rigidity. No distention. Skin: Skin warm and dry. Normal skin color. Normal skin turgor. Extremities: No lower extremity edema. No Lacerations. No Rash Neuro: Oriented X 3. No motor deficit. No sensory deficit. Moving all extremities. No slurred speech. CN 2 through 12 grossly intact Psych: calm, a bit anxious, cooperative, normal affect Vital Signs: Vital Signs - 24 hr 11/10/24 23:43 11/11/24 00:46 Temperature 97.6 F 97.7 F Pulse Rate 84 78 Respiratory Rate 18 20 Blood Pressure 155/73 H 141/96 H Pulse Oximetry 94 95 Oxygen Delivery Method Room Air Room Air BMI result Body Mass Index 26.4 Course Course Course Narrative: patient reporting side-effect medication of [id number] antidepressants he got on the Internet, patient concerned that he is having serotonin syndrome, patient anxious based on vitals, physical exam, patient is just anxious, no obvious signs that would indicate serotonin syndrome. Patient was given a dose of p.o. Benadryl and diazepam. patient's nurse talk to poison control Medications Administered Discontinued Medications Generic Name Dose Route Start Last Admin Trade Name Qamarq PRN Reason Stop Dose Admin Diazepam 2 mg 11/11/24 01:22 11/11/24 01:36 Diazepam 2 Mg Tablet PO 11/11/24 01:23 2 mg ONCE ONE Administration Diphenhydramine HCl 50 mg 11/11/24 01:22 11/11/24 01:36 Diphenhydramine Hcl 25 Mg Capsule PO 11/11/24 01:23 50 mg ONCE ONE Administration Medical Decision Making Medical Decision Making [facility] Narrative: My interpretation of EKG: Normal sinus rhythm, heart rate 76, no ST segment depression or elevation, no T-wave inversion, QTC 438 my interpretation of labs: Patient's white blood cell count is a bit elevated 14, likely reactive leukocytosis. No obvious source of infection. Patient did mentioned that he had a bit of vomiting and diarrhea along with the anxiety. Nonspecific elevation of ALT, no abdominal pain, Toxicology report negative for salicylates, acetaminophen or alcohol patient reports having tremor bite on physical exam he has no tremor at all. Overall, per patient controlled, symptomatic treatment, no further recommendations. After the above-mentioned medication and discussion with the patient, patient feels reassured, much better and feels ready to be discharged. No SI no HI Differential Diagnosis Differential Diagnoses: The differential diagnosis associated with the presentation includes ( anxiety, medication side-effect, serotonin syndrome) Admission/Observation Consideration of admission/observation: Escalation of care including admission/observation considered ( given patient's anxiety, set of complaints, observation was considered) Lab Data MDM Lab Attestation statement: I reviewed the patient's lab results. 11/11/24 00:21 11/11/24 00:21 Labs: Lab Results 11/11/24 Range/Units 00:21 WBC 14.0 H (4.8-10.8) X10*3/uL RBC 5.16 (4.60-5.80) X10*6/uL Hgb 15.7 (14.0-18.0) g/dl Hct 44.3 (42.0-52.0) % MCV 85.9 (80.0-98.0) fL MCH 30.4 (27.0-33.0) pg MCHC 35.4 (31.0-36.0) g/dl RDW 12.5 (11.0-16.0) % Plt Count 258 (160-400) X10*3/uL MPV 9.0 L (9.4-12.4) fL Immature Gran % (Auto) 0.9 H (0.0-0.4) % Neut % (Auto) 84.1 H (45-73) % Lymph % (Auto) 8.0 L (20-40) % [place] % (Auto) 6.3 (2-11) % Eos % (Auto) 0.1 (0-4) % Baso % (Auto) 0.6 (0-2) % Lymph # (Auto) 1.1 L (1.2-4.9) X10*3/uL [place] # (Auto) 0.9 (0.1-1.2) X10*3/uL Eos # (Auto) 0.0 (0.0-0.4) X10*3/uL Baso # (Auto) 0.1 (0.0-0.2) X10*3/uL Abs Immat Gran (auto) 0.13 H (0.00-0.03) X10*3/uL Absolute Neuts (auto) 11.7 H (2.0-8.3) x10*3/uL Absolute Nucleated RBC 0.000 (0.0-0.012) X10*3/uL Nucleated RBC % (auto) 0.0 (0.0-0.2) /100WBC Sodium 141 (135-145) mmol/L Potassium 3.8 (3.3-5.1) mmol/L Chloride 109 H (96-108) mmol/L Carbon Dioxide 23 (22-29) mmol/L Anion Gap 13 (12-20) BUN 17 H (9-16) mg/dL Creatinine 1.01 (0.5-1.4) mg/dL Estim Creat Clear Calc 72.9 Estimated GFR > 60 Random Glucose 103 (60-115) mg/dL Calcium 8.9 (8.4-10.2) mg/dL Magnesium 2.0 (1.6-2.6) mg/dL Total Bilirubin 0.8 (0.0-1.0) mg/dL AST 30 (5-37) U/L ALT 52 H (0-40) U/L Alkaline Phosphatase 50 (39-117) U/L Total Protein 7.3 (6.5-8.0) g/dL Albumin 4.6 (3.5-5.0) g/dL Salicylates < 5.0 L (15-30) mg/dL Acetaminophen < 3 (<30) mcg/mL Ethyl Alcohol < 10 mg/dL Independent Interpretation I performed an independent interpretation of an: EKG Critical Care Time Critical Care Time Critical Care Time: Yes Total Critical Care Time: 35 Attestation: I have personally provided critical care time. Time includes review of lab data, radiology results, discussion with consultants, and monitoring for potential decompensation. Intervention performed as documented. Discharge Plan Discharge Clinical Impression: Anxiety, Medication side effect Patient Disposition: Home, Self-Care Instructions: Anxiety (ED) Additional Instructions: Please follow-up with your primary care physician tomorrow. If you have any worsening or new symptoms, please return to the emergency room or call 911 Prescriptions: No Action levocetirizine [Xyzal] 5 mg tablet 5 mg PO DAILY Qty: 90 1RF tamsulosin 0.4 mg capsule 0.8 mg PO BEDTIME Qty: 180 4RF fluticasone propionate 50 mcg/actuation spray,suspension 1 spray intranasal DAILY Rx Instructions: administer into each nostril bisacodyl 5 mg tablet,delayed release (DR/EC) 5 mg PO ONCE 1 Days Qty: 4 0RF Rx Instructions: Take four tablets once for 1 day per colonoscopy instructions polyethylene glycol 3350 [Miralax] 17 gram/dose powder 238 g PO ONCE Qty: 238 0RF Rx Instructions: per colonoscopy prep instructions silver sulfadiazine 1 % cream 1 appl topical ONCE Qty: 5 0RF silver sulfadiazine 1 % cream 1 appl topical BID 7 Days Qty: 25 0RF Rx Instructions: apply a 1.5 mm thickness Print Language: Estonian
[2024-11-11 01:54] VITALS: BP 141/96; PULSE 78; RESP 20; TEMP 36.5; O2SAT 95
== END 2024-11-11 01:55 | disposition home or self-care (01) ==
PROVIDERS: Emergency Provider Emergency Medicine
DX: F41.9 Anxiety disorder, unspecified (principal); T50.995A Adverse effect of other drugs, medicaments and biological substances, initial encounter; Y92.9 Unspecified place or not applicable; R19.7 Diarrhea, unspecified; R11.0 Nausea; F32.A Depression, unspecified; E66.3 Overweight; R35.0 Frequency of micturition; M54.9 Dorsalgia, unspecified; M13.0 Polyarthritis, unspecified; K90.0 Celiac disease; Z87.891 Personal history of nicotine dependence; Z68.26 Body mass index [BMI] 26.0-26.9, adult
CPT/HCPCS: 36415; 80053; 80143; 80179; 80307; 83735; 85025; 93005; 99283; 99284

== ENCOUNTER → 2024-11-10 | Outpatient (BNV) | payer MEDICARE, MEDICAID, SELFPAY | PROVIDERS: Emergency Provider Emergency Medicine; Visit Provider Internal Medicine Cardiovascular Disease | DX: Z13.6 Encounter for screening for cardiovascular disorders (principal) | CPT/HCPCS: 93010 ==

== ENCOUNTER 2024-11-13 09:20 | Outpatient (REF) | payer MEDICARE, MEDICAID, SELFPAY ==
--- NOTE | ~2024-11-13 | CT_ITS ---
EXAMINATION: CT ABDOMEN PELVIS WITH IV CONTRAST HISTORY: K92.1 - Melena COMPARISON: There are no prior studies for available comparison. TECHNIQUE: CT scan of the abdomen and pelvis was performed following administration of 85 mL Omnipaque 350 using standard departmental protocol. Coronal and sagittal reformatted images were generated and reviewed. Oral contrast material was not administered at the request of the referring physician. This CT exam was performed with one or more of the following dose reduction techniques: automated exposure control, adjustment of the mA and/or kV according to patient size, use of iterative reconstruction technique. DLP: 542 mGy-cm FINDINGS: LOWER CHEST: There is minimal dependent atelectasis at both lung bases.. There is no pleural effusion. CARDIOVASCULATURE: The heart is normal in size. There is no pericardial effusion. LIVER: The liver is normal in size and contour, but demonstrates heterogeneously decreased attenuation, consistent with steatosis. There is focal fatty sparing adjacent to the gallbladder. No liver mass is identified. The hepatic and portal veins are patent. GALLBLADDER / BILE DUCTS: The gallbladder is unremarkable. There is no intra or extrahepatic biliary ductal dilatation. SPLEEN: The spleen is normal in size. No focal splenic lesion is identified. PANCREAS: The pancreas is unremarkable in appearance. ADRENAL GLANDS: Within normal limits. KIDNEYS/RETROPERITONEUM: No renal calculi are identified. There is no hydronephrosis. No renal masses are identified. LYMPH NODES: No abdominal or pelvic lymphadenopathy. VASCULATURE: The abdominal aorta is normal in caliber. MESENTERY/PERITONEUM: No free fluid. No masses. There is no free intraperitoneal gas. STOMACH: The stomach is collapsed, limiting evaluation. SMALL BOWEL: The small bowel is normal in caliber. COLON: There is diverticulosis of the descending and sigmoid colon without evidence of diverticulitis. APPENDIX: Normal. URINARY BLADDER/PELVIC ORGANS: There are multiple bladder diverticula on the right measuring up to 1.5 cm in size. The prostate is enlarged. BONES / SOFT TISSUES: No suspicious bony or soft tissue abnormalities. CT/CT abdomen pelvis w IV con IMPRESSION: 1. Diverticulosis of the descending and sigmoid colon, without evidence of diverticulitis. 2. Hepatic steatosis. 3. Right-sided bladder diverticula. Electronically signed by: Danny Paez MD 11/13/2024 12:37 PM EDT RP
--- OUTSIDE RECORDS SUMMARY | 2024-11-13 09:48 | XMS_ITS | Clinical Summary ---
Author Organization [facility] Address [address] [place] [address] Care Team Providers Care Manufacturing Engineering Technician Name Role Phone Slim Melgar NP Primary Care Provider [phone] Source Comments PLEASE NOTE, if this patient [...] Hypogonadism in male 07/18/2015 SVT (supraventricular tachycardia) ([facility]) 07/18/2015 ED (erectile dysfunction) 07/18/2015 Colon polyp 07/18/2015 Celiac disease ([facility]) 07/18/2015 Sleep apnea 07/18/2015 Social History Tobacco [...] Plan of Treatment Not on file Insurance [facility] Member Subscriber Plan / Payer (Ef fective 2016-Present) Name:Metter Saman Cloud Relation to Subscriber:Self Name:SAMAN HIGH Payer ID:[id number] Group ID:Not on file Type:Medicaid Address: [facility] [id number] [place] [id number] Care Teams Manufacturing Engineering Technician Relationship Specialty Start Date End Date Slim Melgar NP [address] [place] [address] PCP - General 02/17/18
--- OUTSIDE RECORDS SUMMARY | 2024-11-13 09:48 | XMS_ITS | Clinical Summary ---
Author Organization [facility] ity Address [address] [place] [address] Care Team Providers Care Supervisor Cytogenetic Laboratory Name Role Phone Unavailable Primary Care Provider [...] Panel) 03/15/2022 Colorectal Cancer Screening: Colonoscopy 03/15/2022 Hepatitis C Screening 03/15/2022 Social Influencers of Health Screening 03/15/2022 COVID-19 Vaccine (1 - 2023-2 5 season) 2023 Falls Risk Assessment 01/25/2024 Depression Screening 04/12/2024 Influenza Vaccine (#1) 2024 DTaP,Tdap,and Td Vaccines [...]
--- OUTSIDE RECORDS SUMMARY | 2024-11-13 09:48 | XMS_ITS | Encounter Summary ---
Author Organization [facility] Address [address] [place] [address] Phone Care Team Providers Care It Application Support Analyst Name Role Phone Lana Villegas MD Primary Care P rovider Herb Arrington MD Unavailable Encounter Details Date Type Department Care Team (Late st Contact Info) Description 04/24/2016 Procedure Pass [facility] [address] [place] [address] Social History Tobacco Use Types Packs/Day Years Used Date Smoking Tobacco: Former Sex and Gender Information Value Date Recorded Sex Assigned at Not on file Legal Sex Male 6:46 PM EST Gender Identity Not on file Sexual Orientation Not on file documented as of this encounter Plan of Treatment Not on file documented as of this encounter Visit Diagnoses Not on filedocumented in this encounter Additional Health Concerns Assessment Noted Time PHQ-2 Depression Total Score: 1 03/23/20 16 7:46 AM EST documented as of this encounter Care Teams It Application Support Analyst Relationship Specialty Start Date End Date Lana Villegas MD PCP - General Internal Medicine 01/14/16 Herb Arrington MD [address] [place] [address] Cardiology 03/23/16 documented as of this encounter Additional Source Comments The information contained in this document represents components of the legal health record. It is not the complete legal health record.[facility]
[2024-11-13] MEDS: iohexoL 350 MG/ML 100 ML INFUS..BTL IV (12:05)
[2024-11-13] MEDS: Barium Sulfate Oral (Vanilla) 450 ML ORAL.SUSP PO (12:23)
== END 2024-11-13 09:21 | disposition home or self-care (01) ==
LOC: HO.CT 09:20
PROVIDERS: PCP Physician Assistant Medical; Visit Provider Nurse Practitioner Family
DX: K92.1 Melena (principal); R14.0 Abdominal distension (gaseous); R19.7 Diarrhea, unspecified
CPT/HCPCS: 74177; Q9967

== ENCOUNTER → 2024-11-13 09:24 | Outpatient (BNV) | payer MEDICARE, MEDICAID, SELFPAY | PROVIDERS: PCP Physician Assistant Medical; Visit Provider Radiology Diagnostic Radiology | DX: K57.30 Diverticulosis of large intestine without perforation or abscess without bleeding (principal) | CPT/HCPCS: 74177 ==

== ENCOUNTER 2024-12-28 10:29 | Outpatient (AMB) | payer MEDICARE, MEDICAID, SELFPAY ==
--- NOTE | 2024-12-28 10:41 | MHC.PC.OV ---
Vital Signs 12/28/24 10:42 Height 5 ft 9 in Weight 168 lb 8 oz BMI 24.9 BP 110/50 L Blood Pressure Location Lt brachial Position Sitting Pulse 87 Pulse Source Pulse Oximeter Pulse Oximetry (%) 97 Oxygen Delivery Method Room Air Intake Visit Reasons: 4 mo follow up Logging Equipment Operator Required: No Accompanied by: Self / Same As Patient Allergies Penicillins (PENICILLINS) Allergy (Severe, Verified 12/28/24 10:46) Anaphylaxis Medication List - Last Reconciled 12/28/24 by Mayte Oliva MD levocetirizine (Xyzal) 5 mg PO DAILY tamsulosin 0.8 mg (2 x 0.4 mg) PO BEDTIME Tobacco use date assessed: 10/07/23 Dental Screening Dental Screen Date: 12/28/24 Did you have a dental visit in the last 12 months?: Yes Did you have a dental problem in the last 6 months where you did not have access to dental care?: No Was dental information given to patient?: Patient has dentist HPI HPI Comments History of Present Illness Details The patient is a 64-year-old male presenting with a follow-up after an emergency room visit due to concerns about medication interactions and subsequent symptoms. The patient experienced severe vomiting, diarrhea, and panic attacks, which led to an emergency room visit where he was treated with Valium and Anadryl, resulting in significant improvement. He adjusted his medications post-visit and attributed his symptoms to cannabis use, leading to a diagnosis of cannabis hyperemesis syndrome. The patient has a history of fatty liver diagnosed via CT scan during the emergency room visit, with no evidence of cirrhosis. He has made significant dietary changes, including reducing sugar and processed foods, and has lost weight as a result. The patient has a longstanding history of celiac disease, diagnosed over 20 years ago, and has been managing it with a gluten-free diet. He also has diverticulosis and arthritis, which have been present for several years. The patient reports chronic exhaustion and intermittent blood in stools, with endoscopy and colonoscopy scheduled for February. He is currently managing his symptoms with lifestyle modifications, including increased exercise and dietary changes. The patient has a history of sleep apnea, which has resolved following weight loss and lifestyle changes. He was previously using a CPAP machine for nearly 20 years. The patient has an enlarged prostate, contributing to urinary symptoms, and is considering a urological procedure to alleviate these symptoms. Regarding the patient's reason to go to the emergency department his symptoms have resolved since then and has been feeling well. [facility] Medical History Diarrhea Bloody stools Rectal cancer Acid reflux Overweight with body mass index (BMI) of 26 to 26.9 in adult Urinary frequency Back pain Encounter for annual wellness exam in Medicare patient Rectal bleeding Primary osteoarthritis of hands, bilateral Chronic fatigue DELGADO (dyspnea on exertion) JONI positive Polyarthralgia Celiac disease History of ventricular tachycardia Diverticulitis Hemorrhoids Surgical History History of colonoscopy H/O esophagogastroduodenoscopy H/O neck surgery H/O cardiac radiofrequency ablation H/O rhinoplasty Family History Mother Cancer Social History Household Members: Spouse Housing: House Alcohol intake: never Patient Tobacco Use Status: Former Tobacco user Tobacco use type: Cigarette Cigarettes Per Day: 10 Years Smoked: 5 Packs per year/per ci.50 e-Cigarette/Vaping Use: Never Used Second Hand Smoke Exposure: Yes service: No Current occupational status: employed 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 1. Little interest or pleasure in doing things: not at all 2. Feeling down, depressed, or hopeless: several days 3. Trouble falling or staying asleep, or sleeping too much: several days 4. Feeling tired or having little energy: nearly every day 5. Poor appetite or overeating: not at all 6. Feeling bad about yourself - or that you are a failure or have let yourself or your family down: not at all 7. Trouble concentrating on things, such as reading the newspaper or watching television: not at all 8. Moving or speaking so slowly that other people could have noticed. Or the opposite - being so fidgety or restless that you have been moving around a lot more than usual: not at all 9. Thoughts that you would be better off or of hurting yourself in some way: not at all Total score: 5 Source: Developed by Drs. Danny Blount, Sanam Chaudhary, Pk Perla and colleagues, with an educational rocío from [employer]. Thrive Questionnaire Date Thrive assessed: 08/15/24 I am a: Patient What is your living situation today?: I have a steady place to live Within the past 12 months, did the food you bought not last and you didn't have the money to get more?: Never true Within the past 12 months, did you worry whether your food would run out before you got money to buy more?: Never true Do you have trouble paying for medicines?: No Do you have trouble getting transportation to medical appointments?: No Do you have trouble paying your heating and electricity bill?: Yes Do you have trouble taking care of your child, family member or friend?: Yes Do you have trouble with day-to-day activities such as bathing, preparing meals, shopping, managing finances, etc.?: No Are you currently unemployed and looking for a job?: I choose not to answer this question Are you interested in more education?: I choose not to answer this question Please select the resources that you would like help with: Care for elder or disabled Currently or been in a relationship where the following occur: No concerns reported THRIVE Score: 1 TARUN-7 AMB Questionnaire TARUN-7 Date TARUN - 7 assessed: 08/10/23 Source: Developed by Drs. Danny Blount, Pk Riley and colleagues, with an educational rocío from [employer]. Review of Systems Const Details: Positives besides what was mentioned in HPI are in BOLD Constitutional: No Weight Change, No Fever, No Chills, No Night Sweats, No Fatigue, No Malaise ENT/Mouth: No Hearing Changes, No Ear Pain, No Nasal Congestion, No Sinus Pain, No Hoarseness, No sore throat, No Rhinorrhea, No Swallowing Difficulty Eyes: No Eye Pain, No Swelling, No Redness, No Foreign Body, No Discharge, No Vision Changes Cardiovascular: No Chest Pain, No SOB, No PND, No Dyspnea on Exertion, No Orthopnea, No Claudication, No Edema, No Palpitations Respiratory: No Cough, No Sputum, No Wheezing, No Smoke Exposure, No Dyspnea Gastrointestinal: No Nausea, No Vomiting, No Diarrhea, No Constipation, No Pain, No Heartburn, No Anorexia, No Dysphagia, No Hematochezia, No Melena, No Flatulence, No Jaundice Genitourinary: No Dysmenorrhea, No DUB, No Dyspareunia, No Dysuria, No Urinary Frequency, No Hematuria, No Urinary Incontinence, No Urgency, No Flank Pain, No Urinary Flow Changes, No Hesitancy Musculoskeletal: No Arthralgias, No Myalgias, No Joint Swelling, No Joint Stiffness, No Back Pain, No Neck Pain, No Injury History Skin: No Skin Lesions, No Pruritis, No Hair Changes, No Breast/Skin Changes, No Nipple Discharge Neuro: No Weakness, No Numbness, No Paresthesias, No Loss of Consciousness, No Syncope, No Dizziness, No Headache, No Coordination Changes, No Recent Falls Psych: No Anxiety/Panic, No Depression, No Insomnia, No Personality Changes, No Delusions, No Rumination, No SI/HI/AH/VH, No Social Issues, No Memory Changes, No Violence/Abuse Hx., No Eating Concerns Heme/Lymph: No Bruising, No Bleeding, No Transfusions History, No Lymphadenopathy Endocrine: No Polyuria, No Polydipsia, No Temperature Intolerance Physical exam (Primary Care) Vital Signs: Last Vital Signs Pulse 87 12/28/24 10:42 BP 110/50 L 12/28/24 10:42 Pulse Ox 97 12/28/24 10:42 Oxygen Delivery Method Room Air 12/28/24 10:42 BMI result Body Mass Index 24.9 Tobacco/Smoking Status: Tobacco use Status Tobacco use date assessed 10/07/23 12/28/24 10:44 Patient Tobacco Use Status Former Tobacco user 12/28/24 10:44 Tobacco use type Cigarette 12/28/24 10:44 e-Cigarette/Vaping Use Never Used 12/28/24 10:44 PHQ-9: PHQ-9 Score PHQ-9: Total score 5 12/28/24 10:49 Thrive Assessment: Date of Thrive Assessment Date Thrive assessed 08/15/24 12/28/24 10:44 Currently or been in a relationship where the following occur: No concerns reported Const Other: Pertinent findings are in BOLD GENERAL APPEARANCE NAD, activity normal for age, well developed/ well nourished, no cyanosis, pallor, or diaphoresis. EYES lids/conjunctiva normal. EARS/NOSE/THROAT Mucous membranes moist, nares normal, lips/teeth normal uvula midline without oral pharyngeal erythema, exudate or swelling TMs normal bilaterally. No lymphangitis/lymphedema. HEAD/NECK normocephalic atraumatic, no facial trauma, neck is supple. RESPIRATORY respiratory effort normal, speaks in full sentences, no tripod position, no accessory muscle use. Lungs clear to auscultation without rhonchi, wheezes, rales CARDIAC Regular rate and rhythm, no edema. ABDOMINAL Soft, ND/NT. No evidence of fluid wave. No pulsatile masses on exam, rebound tenderness, Ruiz sign or pain over Mcburney's point. MUSCLES/EXTREMITIES No abnormal range of motion, no swelling. SKIN Warm, pink and dry. No rashes, dermatoses, petechiae or lesions. NEUROLOGICAL Speech is clear and appropriate. Normal level of consciousness. Gait and coordination are normal. 5/5 strength in all extremities. PSYCH Normal mood and affect. Judgement/competence is appropriate Coding Level of Care Code Est Pt Level 5 (25629) Diagnoses GARCIA (nonalcoholic steatohepatitis) K75.81 Benign prostate hyperplasia N40.0 Cannabis hyperemesis syndrome concurrent with and due to cannabis abuse F12.188 Celiac disease K90.0 Assessment & Plan Assessment & Plan (1) GARCIA (nonalcoholic steatohepatitis): Code(s): K75.81 - Nonalcoholic steatohepatitis (GARCIA) Category: Medical Plan: US abdomen ordered for 6 months. Repeat labs ordered for 6 months. Advised on lifestyle modifications. (2) Benign prostate hyperplasia: Code(s): N40.0 - Benign prostatic hyperplasia without lower urinary tract symptoms Category: Medical Plan: Urology referral as the patient is interested in a procedure and would like to know more about it. (3) Cannabis hyperemesis syndrome concurrent with and due to cannabis abuse: Code(s): F12.188 - Cannabis abuse with other cannabis-induced disorder Category: Medical Plan: Patient is not using Cannabis anymore since the ED visit. Continue to reinforce cannabis abstinence. (4) Celiac disease: Code(s): K90.0 - Celiac disease Category: Medical Plan: Patient has F-U procedure scheduled with GI. Advised on continuing lifestyle modificaitons such as eliminating dairy, gluten, sugar and red meat. Plan During the visit, we discussed the patient's recent diagnosis of cannabis hyperemesis syndrome and the importance of discontinuing cannabis use, which has led to symptom improvement. We also reviewed the diagnosis of fatty liver and the significance of dietary changes and weight loss in managing this condition. The patient was advised to continue with a gluten-free diet for celiac disease management and to monitor diverticulosis. We discussed the patient's urinary symptoms related to an enlarged prostate and the potential for a urological procedure to alleviate these symptoms. Orders: Orders Comprehensive Met. Panel 05/15/25 K75.81 - Nonalcoholic steatohepatitis (GARCIA) US abdomen limited 05/15/25 K75.81 - Nonalcoholic steatohepatitis (GARCIA) Referrals Urology Referral N40.0 - Benign prostatic hyperplasia without lower urinary tract symptoms
[2024-12-28 10:42] VITALS: BP 110/50; PULSE 87; O2SAT 97; BMI 24.9
--- OUTSIDE RECORDS SUMMARY | 2024-12-28 12:30 | XMS_ITS | Encounter Summary ---
Author Organization [facility] Address [address] [place] [address] Phone Care Team Providers Care Supervisor Machine Workers Name Role Phone Lana Villegas MD Primary Care P rovider Herb Arrington MD Unavailable [phone] Encounter Details Date Type Department Care Team (Late st Contact Info) Description 03/23/2016 Transcribe Orders [facility] Echocardiography [address] [place] [address] [address] [place] [address] [email or web address] Social History Tobacco Use Types Packs/Day [...] documented as of this encounter Care Teams Supervisor Machine Workers Relationship Specialty Start Date End Date Lana Villegas MD PCP - General Internal Medicine 01/14/16 Herb Arrington MD [address] [place] [address] Cardiology 03/23/16 documented as of this encounter Additional Source Comments The information contained in this document represents components of the legal health record. It is not the complete legal health record.[facility]
--- OUTSIDE RECORDS SUMMARY | 2024-12-28 12:30 | XMS_ITS | Clinical Summary ---
Author Organization [facility] Address [address] [place] [address] Care Team Providers Care Cost Estimating Clerk Name Role Phone Slim Melgar NP Primary Care Provider Source Comments PLEASE NOTE, if this patient [...] Hypogonadism in male 07/18/2015 SVT (supraventricular tachycardia) ([facility]) 07/18/2015 ED (erectile dysfunction) 07/18/2015 Colon polyp 07/18/2015 Celiac disease ([facility]) 07/18/2015 Sleep apnea 07/18/2015 Social History Tobacco [...] of Treatment Not on file Insurance [facility] Member Subscriber Plan / Payer (Ef fective 2016-Present) Name:[place] Saman Cloud Relation to Subscriber:Self Name:SAMAN HIGH Payer ID:[id number] Group ID:Not on file Type:Medicaid Address: [facility] [id number] [place] [id number] Care Teams Cost Estimating Clerk Relationship Specialty Start Date End Date Slim Melgar NP [address] [place] [address] PCP - General 02/17/18
--- OUTSIDE RECORDS SUMMARY | 2024-12-28 12:30 | XMS_ITS | Clinical Summary ---
Author Organization [facility] Address [address] [place] [address] Phone Care Team Providers Care Vat Washer Name Role Phone Lana Villegas MD Primary Care P rovider Herb Arrington MD Unavailable [phone] Allergies Active Allergy Reactions Criticality Noted Date [...] you interested in more education? Not on adiran e 08/10/2022 Are you concerned about learning? [...] 03/23/2017 03/23/2016 Adult Td,Tdap Booster 07/12/2021 07/13/2011 ABDOMINAL AORTIC ANEURYSM (AAA) SCREENING 01/25/2024 INFLUENZA VACCINE (#1) 2024 0, 01/04/2012 COVID-19 VACCINE (2 - 2024-2 6 season) 2024 07/04/2020 RSV VACCINE (1 - 1-dose 75+ series) [...] this topic Medical Devices Implanted Type Area Wealth Management Director Device Identifier Shelf Expiration Date Model / Serial / Lot Device Vascular Sealing 8fr - Order In Qty Of 10 Only - Angioseal Vip Plus Bx/10 Ea - Minimum Order Of 10 Each - [id number] Implanted:Qty : 1 on 07/24/2016 by Zechariah De Leon MD at [facility] Closure Device Right: Femoral [employer] [id number] / / [place] [address] [place] [address] [address] [place] [address] [facility] Advance Directives For more information, please contact: [phone] (9AM - 5PM [facility], Wednesday-Wednesday) * Full Code (Presumed) (Latest Code Status on File) Date Activated Date Inactivated Comments 07/24/2016 12:02 PM 07/28/2016 4:01 AM Care Teams Vat Washer Relationship Specialty Start Date End Date Lana Villegas MD PCP - General Internal Medicine 01/14/16 Herb Arrington MD [address] [place] [address] Cardiology 03/23/16 Additional Source Comments The information contained in this document represents components of the legal health record. It is not the complete legal health record.[facility]
--- OUTSIDE RECORDS SUMMARY | 2024-12-28 12:30 | XMS_ITS | Encounter Summary ---
Author Organization [facility] Address [address] [place] [address] Phone Care Team Providers Care Binding Dyer Name Role Phone Lana Villegas MD Primary Care P rovider Herb Arrington MD Unavailable [phone] Encounter Details Date Type Department Care Team (Late st Contact Info) Description 04/24/2016 Procedure Pass [facility] [address] [place] [address] Social History Tobacco Use Types Packs/Day Years [...] documented as of this encounter Care Teams Binding Dyer Relationship Specialty Start Date End Date Lana Villegas MD PCP - General Internal Medicine 01/14/16 Herb Arrington MD [address] [place] [address] Cardiology 03/23/16 documented as of this encounter Additional Source Comments The information contained in this document represents components of the legal health record. It is not the complete legal health record.[facility]
--- OUTSIDE RECORDS SUMMARY | 2024-12-28 12:30 | XMS_ITS | Encounter Summary ---
Author Organization [facility] Address [address] [place] [address] Phone Care Team Providers Care Hand Washer Name Role Phone Lana Villegas MD Primary Care P rovider Herb Arrington MD Unavailable [phone] Encounter Details Date Type Department Care Team (Late st Contact Info) Description 07/24/2016 Procedure Pass [facility] Electrophysiology Lab [address] [place] [id number] Social History Tobacco Use Types Packs/Day Years [...] documented as of this encounter Care Teams Hand Washer Relationship Specialty Start Date End Date Lana Villegas MD PCP - General Internal Medicine 01/14/16 Herb Arrington MD [address] [place] [address] Cardiology 03/23/16 documented as of this encounter Additional Source Comments The information contained in this document represents components of the legal health record. It is not the complete legal health record.[facility]
--- OUTSIDE RECORDS SUMMARY | 2024-12-28 12:30 | XMS_ITS | Encounter Summary ---
Author Organization [facility] Address [address] [place] [address] Phone Care Team Providers Care Architectural Superintendent Name Role Phone Lana Villegas MD Primary Care P rovider Herb Arrington MD Unavailable [phone] Reason for Referral * MRI/CAT Scan - Closed Specialty Diagnoses / Procedures Referred By Contesthela hope Referred To Contact Radiology Diagnoses History of ventricular tachycardia Procedures MRI Cardiac Non-Stress Zechariah De Leon MD Referral ID Status Reason Start Date Expiration Date Visits Re quested Visits Authorized [id number] Closed 04/24/2016 04/24/2017 1 1 Encounter Details Date Type Department Care Team (Latest Contact Info) Description 04/24/2016 Transcribe Orders [facility] Electrophysiology Lab [address] [place] [id number] [email or web address] History of ventricular tachycardia [...] Exam Date: Jul 09, 2016 Exam #: [id number] BSA: 1.95 m2 Referring MD: Zechariah De [...] Exam Date: Jul 09, 2016 Exam #: [id number] BSA: 1.95 m2 Referring MD: Zechariah De [...] documented as of this encounter Care Teams Architectural Superintendent Relationship Specialty Start Date End Date Lana Villegas MD PCP - General Internal Medicine 01/14/16 Herb Arrington MD [address] [place] [address] Cardiology 03/23/16 documented as of this encounter Additional Source Comments The information contained in this document represents components of the legal health record. It is not the complete legal health record.[facility]
--- OUTSIDE RECORDS SUMMARY | 2024-12-28 12:30 | XMS_ITS | Clinical Summary ---
Author Organization [facility] Address [address] [place] [address] Care Team Providers Care Tellers Supervisor Name Role Phone Unavailable Primary Care Provider [...] 03/15/2022 Social Influencers of Health Screening 03/15/2022 Falls Risk Assessment 01/25/2024 Depression Screening 04/12/2024 COVID-19 Vaccine (1 - 2023-2 5 season) 2024 Influenza Vaccine (#1) 2024 DTaP,Tdap,and Td Vaccines [...]
== END 2024-12-28 12:35 | disposition home or self-care (01) ==
LOC: HO.HMCH 10:30
PROVIDERS: PCP Physician Assistant Medical; Visit Provider Internal Medicine
DX: K75.81 Nonalcoholic steatohepatitis (NASH) (principal); N40.0 Benign prostatic hyperplasia without lower urinary tract symptoms; F12.188 Cannabis abuse with other cannabis-induced disorder; K90.0 Celiac disease

== ENCOUNTER → 2024-12-28 10:29 | Outpatient (BNVA) | payer MEDICARE, MEDICAID, SELFPAY | PROVIDERS: PCP Physician Assistant Medical; Visit Provider Internal Medicine | DX: K75.81 Nonalcoholic steatohepatitis (NASH) (principal); K90.0 Celiac disease; R53.83 Other fatigue; N40.0 Benign prostatic hyperplasia without lower urinary tract symptoms; F12.188 Cannabis abuse with other cannabis-induced disorder | CPT/HCPCS: 96127; 99212 ==

== ENCOUNTER 2025-02-12 07:51 | Day surgery (SDC) | payer MEDICARE, MEDICAID, SELFPAY ==
--- OUTSIDE RECORDS SUMMARY | 2024-12-06 12:46 | XMS_ITS | Clinical Summary ---
Author Organization [facility] ity Address [address] [place] [address] Care Team Providers Care Gas Engine Performance Engineer Name Role Phone Unavailable Primary Care Provider [...]
--- OUTSIDE RECORDS SUMMARY | 2024-12-06 12:46 | XMS_ITS | Encounter Summary ---
Author Organization [facility] Address [address] [place] [address] Phone Care Team Providers Care Certified Pedorthotist Name Role Phone Lana Villegas MD Primary Care P rovider Herb Arrington MD Unavailable [phone] Encounter Details Date Type Department Care Team (Late st Contact Info) Description 03/23/2016 Transcribe Orders [facility] Echocardiography [address] [place] [address] [address] [place] [address] [email or web address] Social History Tobacco Use Types Packs/Day Years [...] documented as of this encounter Care Teams Certified Pedorthotist Relationship Specialty Start Date End Date Lana Villegas MD PCP - General Internal Medicine 01/14/16 Herb Arrington MD [address] [place] [address] Cardiology 03/23/16 documented as of this encounter Additional Source Comments The information contained in this document represents components of the legal health record. It is not the complete legal health record.[facility]
--- OUTSIDE RECORDS SUMMARY | 2024-12-06 12:46 | XMS_ITS | Encounter Summary ---
Author Organization [facility] Address [address] [place] [address] Phone Care Team Providers Care Artificial Inseminator Name Role Phone Lana Villegas MD Primary Care P rovider Herb Arrington MD Unavailable [phone] Encounter Details Date Type Department Care Team (Late st Contact Info) Description 04/24/2016 Procedure Pass [facility] [address] [place] [address] Social History Tobacco Use Types Packs/Day Years [...] documented as of this encounter Care Teams Artificial Inseminator Relationship Specialty Start Date End Date Lana Villegas MD PCP - General Internal Medicine 01/14/16 Herb Arrington MD [address] [place] [address] Cardiology 03/23/16 documented as of this encounter Additional Source Comments The information contained in this document represents components of the legal health record. It is not the complete legal health record.[facility]
--- OUTSIDE RECORDS SUMMARY | 2024-12-06 12:46 | XMS_ITS | Clinical Summary ---
Author Organization [facility] Address [address] [place] [address] Care Team Providers Care Dater Assembler Name Role Phone Slim Melgar NP Primary Care Provider [phone] Source Comments PLEASE NOTE, if this patient [...] Hypogonadism in male 07/18/2015 SVT (supraventricular tachycardia) ([facility]) 07/18/2015 ED (erectile dysfunction) 07/18/2015 Colon polyp 07/18/2015 Celiac disease ([facility]) 07/18/2015 Sleep apnea 07/18/2015 Social History [...] Plan of Treatment Not on file Insurance [facility] Member Subscriber Plan / Payer (Ef fective 2016-Present) Name:Payette Saman Cloud Relation to Subscriber:Self Name:SAMAN HIGH Payer ID:[id number] Group ID:Not on file Type:Medicaid Address: [facility] [id number] [place] [id number] Care Teams Dater Assembler Relationship Specialty Start Date End Date Slim Melgar NP [address] [place] [address] PCP - General 02/17/18
--- OUTSIDE RECORDS SUMMARY | 2024-12-06 12:46 | XMS_ITS | Encounter Summary ---
Author Organization [facility] Address [address] [place] [address] Phone Care Team Providers Care Talcer Name Role Phone Lana Villegas MD Primary Care P rovider Herb Arrington MD Unavailable [phone] Reason for Referral * MRI/CAT Scan - Closed Specialty Diagnoses / Procedures Referred By Contesthela hope Referred To Contact Radiology Diagnoses History of ventricular tachycardia Procedures MRI Cardiac Non-Stress Zechariah De Leon MD Referral ID Status Reason Start Date Expiration Date Visits Re quested Visits Authorized [id number] Closed 04/24/2016 04/24/2017 1 1 Encounter Details Date Type Department Care Team (Latest Contact Info) Description 04/24/2016 Transcribe Orders [facility] Electrophysiology Lab [address] [place] [id number] [email or web address] History of ventricular tachycardia (Primary Dx) Social History Tobacco Use Types Packs/Day Years Used Date Smoking Tobacco: Former Sex and Gender Information Value Date Recorded Sex Assigned at Not on file Legal Sex Male 6:46 PM EST Gender Identity Not on file Sexual Orientation Not on file documented as of this encounter Plan of Treatment Not on file documented as of this encounter Results * MRI CARDIAC NON-STRESS WITH AND WITHOUT CONTRAST (07/09/2016 12:39 PM EDT) Anatomical Region Laterality Modality Heart Magnetic Resonan ce Angiography 07/09/2016 12:3 9 PM EDT Narrative 07/09/2016 8:54 PM EDT CARDIOVASCULAR MAGNETIC RESONANCE IMAGING REPORT PATIENT AND EXAM INFORMATION: Patient: Redd Graham Sex: Male Height: 1.78 m : 1960 Weight: 77.5 kg Exam Date: Jul 09, 2016 Exam #: [id number] BSA: 1.95 m2 Referring MD: Zechariah De Leon MD Reason for Referral: Recurrent episodes of supraventricular tachycardia SCANNER DETAILS AND TECHNIQUES PERFORMED: Scanner Shira: 3T Scanner Vendor: Siemens Cardiac localization Steady-state free precession cine imaging in multiple imaging planes Gadolinium contrast enhanced first-pass myocardial perfusion imaging at rest T2 star weighted fast gradient recalled echo imaging in multiple imaging planes Contrast-enhanced late gadolinium enhancement imaging in multiple planes T2-weighted triple-inversion recovery fast-spin echo imaging in multiple imaging planes The patient received intravenous Dotarem (gadoterate) total - 23.5ml IMPRESSIONS: 1. The left ventricular size is normal. Global left ventricular function is mildly decreased. The left ventricular ejection fraction is 55 % by visual estimation. 2. The right ventricular size is normal. Global right ventricular function is normal. Regional wall motion of the right ventricle is normal. 3. Resting first pass myocardial perfusion imaging is normal. Sub-endocardial late gadolinium enhancement is seen involving mid-cavity and apical infero-lateral segments and adjacent postero-medial papillary muscles, consistent with prior scar/fibrosis. 4. There was no evidence of myocardial edema by T2 weighted imaging. There was no evidence of increased iron deposition within the myocardium. 5. Left atrial size is normal. Right atrial size is normal. CONCLUSIONS: Sub-endocardial late gadolinium enhancement is seen involving mid-cavity and apical infero-lateral segments and adjacent postero-medial papillary muscles, consistent with prior scar/fibrosis. QUANTITATIVE MEASUREMENTS: Non-indexed Indexed (m2) Max thickness (mm) Left Atrium (mm) 32.0 16.0 Pulm Artery (mm) 27.0 Aortic Root (mm) 32.0 16.0 MISCELLANEOUS: The pulse sequences used were designed for imaging cardiovascular structures and are suboptimal for imaging other structures and organs. ELECTRONIC SIGNATURE: Cardiac MRI Fellow: Davin Mcelroy MD Cardiac MRI Attending: Tavon Crowell MD I, Tavon Crowell MD, the teaching physician, have reviewed the images and agreed with the report as written. Procedure Note Tavon Crowell MD - 07/09/2016 CARDIOVASCULAR MAGNETIC RESONANCE IMAGING REPORT PATIENT AND EXAM INFORMATION: Patient: Redd Graham Sex: Male Height: 1.78 m : 1960 Weight: 77.5 kg Exam Date: Jul 09, 2016 Exam #: [id number] BSA: 1.95 m2 Referring MD: Zechariah De Leon MD Reason for Referral: Recurrent episodes of supraventricular tachycardia SCANNER DETAILS AND TECHNIQUES PERFORMED: Scanner Shira: 3T Scanner Vendor: Siemens Cardiac localization Steady-state free precession cine imaging in multiple imaging planes Gadolinium contrast enhanced first-pass myocardial perfusion imaging at rest T2 star weighted fast gradient recalled echo imaging in multiple imaging planes Contrast-enhanced late gadolinium enhancement imaging in multiple planes T2-weighted triple-inversion recovery fast-spin echo imaging in multiple imaging planes The patient received intravenous Dotarem (gadoterate) total - 23.5ml IMPRESSIONS: 1. The left ventricular size is normal. Global left ventricular function is mildly decreased. The left ventricular ejection fraction is 55 % by visual estimation. 2. The right ventricular size is normal. Global right ventricular function is normal. Regional wall motion of the right ventricle is normal. 3. Resting first pass myocardial perfusion imaging is normal. Sub-endocardial late gadolinium enhancement is seen involving mid-cavity and apical infero-lateral segments and adjacent postero-medial papillary muscles, consistent with prior scar/fibrosis. 4. There was no evidence of myocardial edema by T2 weighted imaging. There was no evidence of increased iron deposition within the myocardium. 5. Left atrial size is normal. Right atrial size is normal. CONCLUSIONS: Sub-endocardial late gadolinium enhancement is seen involving mid-cavity and apical infero-lateral segments and adjacent postero-medial papillary muscles, consistent with prior scar/fibrosis. QUANTITATIVE MEASUREMENTS: Non-indexed Indexed (m2) Max thickness (mm) Left Atrium (mm) 32.0 16.0 Pulm Artery (mm) 27.0 Aortic Root (mm) 32.0 16.0 MISCELLANEOUS: The pulse sequences used were designed for imaging cardiovascular structures and are suboptimal for imaging other structures and organs. ELECTRONIC SIGNATURE: Cardiac MRI Fellow: Davin Mcelroy MD Cardiac MRI Attending: Tavon Crowell MD I, Tavon Crowell MD, the teaching physician, have reviewed the images and agreed with the report as written. us Zechariah De Leon MD IMG MR CARDIAC Fin al Result documented in this encounter Visit Diagnoses Diagnosis History of ventricular tachycardia- Primary Personal history of other diseases of circulatory system History of ventricular tachycardia Personal history of other diseases of circulatory system documented in this encounter Additional Health Concerns Assessment Noted Time PHQ-2 Depression Total Score: 1 03/23/20 16 7:46 AM EST documented as of this encounter Care Teams Talcer Relationship Specialty Start Date End Date Lana Villegas MD PCP - General Internal Medicine 01/14/16 Herb Arrington MD [address] [place] [id number] Cardiology 03/23/16 documented as of this encounter Additional Source Comments The information contained in this document represents components of the legal health record. It is not the complete legal health record.[facility]
--- OUTSIDE RECORDS SUMMARY | 2024-12-06 12:46 | XMS_ITS | Clinical Summary ---
Author Organization [facility] Address [address] [facility] [address] [place] [address] Phone Care Team Providers Care Livestock Farmer Name Role Phone Lana Villegas MD Primary Care P rovider Herb Arrington MD Unavailable [phone] Allergies Active Allergy Reactions Criticality Noted Date Comments Gluten Protein 07/16/2016 Penicillins Unknown 04/13/2014 PCN Sulfur Unknown 03/31/2011 Medications cetirizine (ALLERGY RELIEF, CETIRIZINE,) 10 MG tablet Take 10 mg by mouth as needed for allergies. Active zolpidem (AMBIEN) 5 MG tablet Take 5 mg by mouth nightly as needed (1 tab and 0.5 tab). Active triamcinolone acetonide 0.1 % ointment Apply topically 2 (two) times a day. Active testosterone (TESTIM) 50 mg/5 gram (1 %) transdermal gel tube Place 50 mg onto the skin daily. Reported on 07/16/2016 Active famotidine (PEPCID) 10 MG tablet Take 10 mg by mouth daily. Active nadolol (CORGARD) 20 MG tablet Take 1 tablet (20 mg total) by mouth daily. 180 tablet 3 016 Active LORazepam (ATIVAN) 1 MG tablet Take 1 tablet (1 mg total) by mouth every 6 (six) hours as needed for anxiety. Take 30 minutes prior to MRI, may repeat x1 as needed. 2 tablet 017 Active Additional Information Patient not taking.Reported on 07/16/2016 melatonin 3 mg Tab Take 3 mg by mouth nightly as needed. Active ciprofloxacin HCl (CIPRO) 500 MG tabletIndications:d iverticulitis of gastrointestinal tract,10 day course started on 07/18/16 Take 500 mg by mouth 2 (two) times a day. Indications: Diverticulitis of Gastrointestinal Tract, 10 day course started on 07/18/16 Active tamsulosin (FLOMAX) 0.4 mg Cp24 Take 0.4 mg by mouth nightly. Active oxybutynin (DITROPAN-XL) 10 MG 24 hr tablet Take 10 mg by mouth daily. Active aspirin 325 MG tablet Take 1 tablet (325 mg total) by mouth daily. 45 tablet 017 Active Social History Tobacco Use Types Packs/Day Years Used Date Smoking Tobacco: Former Alcohol Use Standard Drinks/Week Comments No 0 (1 standard drink = 0.6 oz pur e alcohol) Education Answer Date Recorded Are you interested in more education? Not on adrian e 08/10/2022 Are you concerned about learning? Not on file 08/10/2022 No 08/10/2022 No 08/10/2022 Digital Access Answer Date Recorded No 09/06/2022 No 09/06/2022 No 09/06/2022 Reliable internet access at home? Not on file 09/06/2022 Device with a working camera? Not on file Sex and Gender Information Value Date Recorded Sex Assigned at Not on file Legal Sex Male 6:46 PM EST Gender Identity Not on file Sexual Orientation Not on file Last Filed Vital Signs Vital Sign Reading Time Taken Comments Blood Pressure 119/80 07/24/2016 3:20 PM EDT Pulse 72 07/24/2016 3:20 PM EDT Temperature 36.4 C (97.6 F) 07/24/2016 7:04 AM EDT Respiratory Rate 16 07/24/2016 3:20 PM EDT Oxygen Saturation 99% 07/24/2016 3:20 PM EDT Inhaled Oxygen Concentration - - Weight 73.9 kg (163 lb) 07/24/2016 7:04 AM EDT Height 175.3 cm (5' 9 ) 07/24/2016 7:04 AM EDT Body Mass Index 24.07 07/24/2016 7:04 AM EDT Plan of Treatment Health Maintenance Due Date Last Done Comments LIPID PANEL 1960 SMOKING Hx and SMOKELESS TOBACCO SCREENING 01/25/1972 HEPATITIS C SCREENING 1977 HIV ONE-TIME SCREENING (18-6 5 YEARS) 1977 COLOGUARD 01/25/2004 COLONOSCOPY 01/25/2004 COLORECTAL CANCER SCREENING 01/25/2004 FIT TEST 01/25/2004 FOBT 01/25/2004 SIGMOIDOSCOPY 01/25/2004 VIRTUAL COLONOSCOPY 01/25/2004 PNEUMOCOCCAL VACCINES (50+ years) (1 of 1 - PCV) 2009 ZOSTER VACCINES (1 of 2) 2009 DEPRESSION SCREENING 03/23/2017 03/23/2016 Adult Td,Tdap Booster 07/12/2021 07/13/2011 COVID-19 VACCINE (2 - 2023-2 5 season) 2023 07/04/2020 ABDOMINAL AORTIC ANEURYSM (AAA) SCREENING 01/25/2024 INFLUENZA VACCINE (#1) 2024 0, 01/04/2012 RSV VACCINE (1 - 1-dose 75+ series) 2034 HEPATITIS A VACCINES Aged Out No long er eligible based on patient's age to complete this topic HIB VACCINES Aged Out No longer eligi ble based on patient's age to complete this topic MENINGOCOCCAL VACCINES (ACWY) Aged Out No longer eligible based on patient's age to complete this topic MENINGOCOCCAL VACCINES (B) Aged Out N o longer eligible based on patient's age to complete this topic Medical Devices Implanted Type Area Fan Blade Aligner Device Identifier Shelf Expiration Date Model / Serial / Lot Device Vascular Sealing 8fr - Order In Qty Of 10 Only - Angioseal Vip Plus Bx/10 Ea - Minimum Order Of 10 Each - [id number] Implanted:Qty : 1 on 07/24/2016 by Zechariah De Leon MD at [facility] Closure Device Right: Femoral Artery [employer] [id number] / / [place] [address] [place] [address] [address] [place] [address] [facility] Advance Directives For more information, please contact: [phone] (9AM - 5PM [facility], Wednesday-Wednesday) * Full Code (Presumed) (Latest Code Status on File) Date Activated Date Inactivated Comments 07/24/2016 12:02 PM 07/28/2016 4:01 AM Care Teams Livestock Farmer Relationship Specialty Start Date End Date Lana Villegas MD PCP - General Internal Medicine 01/14/16 Herb Arrington MD [address] [place] [address] Cardiology 03/23/16 Additional Source Comments The information contained in this document represents components of the legal health record. It is not the complete legal health record.[facility]
--- OUTSIDE RECORDS SUMMARY | 2024-12-06 12:47 | XMS_ITS | Encounter Summary ---
Author Organization [facility] Address [address] [facility] [address] [place] [address] Phone Care Team Providers Care Graduate Recruiter Name Role Phone Lana Villegas MD Primary Care P rovider Herb Arrington MD Unavailable [phone] Encounter Details Date Type Department Care Team (Late st Contact Info) Description 07/24/2016 Procedure [facility] Electrophysiology Lab [address] [place] [id number] Social History Tobacco Use Types Packs/Day Years Used Date Smoking Tobacco: Former Alcohol Use Standard Drinks/Week Comments No 0 (1 standard drink = 0.6 oz pur e alcohol) Sex and Gender Information Value Date Recorded [...] documented as of this encounter Care Teams Graduate Recruiter Relationship Specialty Start Date End Date Lana Villegas MD PCP - General Internal Medicine 01/14/16 Herb Arrington MD [address] [place] [address] Cardiology 03/23/16 documented as of this encounter Additional Source Comments The information contained in this document represents components of the legal health record. It is not the complete legal health record.[facility]
--- NOTE | 2024-12-19 09:13 | HO.ANESPROP2 ---
HPI - Anesthesia Eval Consult details Narrative: 64yo M for Upper Endoscopy and Colonoscopy [facility] Active Problems Active Problems: All Active Problems Diarrhea (Acute) Bloody stools (Acute) Rectal cancer (Acute) Acid reflux (Acute) Overweight with body mass index (BMI) of 26 to 26.9 in adult (Acute) Urinary frequency (Acute) Back pain (Acute) Encounter for annual wellness exam in Medicare patient (Acute) Rectal bleeding (Acute) Primary osteoarthritis of hands, bilateral (Acute) Chronic fatigue (Acute) DELGADO (dyspnea on exertion) (Acute) Polyarthralgia (Acute) JONI positive (Acute) Celiac disease (Acute) Central sleep apnea (Acute) Daytime somnolence (Acute) Obstructive sleep apnea (Acute) Elevated fasting glucose (Acute) Intermittent chest pain (Acute) Screening for colon cancer (Acute) Screening for prostate cancer (Acute) Overactive bladder (Acute) Encounter to establish care (Acute) GARCIA (nonalcoholic steatohepatitis) (Acute) Benign prostate hyperplasia (Acute) Diverticulosis (Acute) BAKARI on CPAP (Acute) Past Medical History Medical History Diarrhea Bloody stools Rectal cancer Acid reflux Overweight with body mass index (BMI) of 26 to 26.9 in adult Urinary frequency Back pain Encounter for annual wellness exam in Medicare patient Rectal bleeding Primary osteoarthritis of hands, bilateral Chronic fatigue DELGADO (dyspnea on exertion) JONI positive Polyarthralgia Celiac disease History of ventricular tachycardia Diverticulitis Hemorrhoids Family History Family History (Updated 10/25/24 @ 10:53 by Janay Almeida CNP) Mother Cancer Surgical History Surgical History History of colonoscopy H/O esophagogastroduodenoscopy H/O neck surgery H/O cardiac radiofrequency ablation H/O rhinoplasty Social History Social History Household Members: Spouse Housing: House Alcohol intake: never Patient Tobacco Use Status: Former Tobacco user Tobacco use type: Cigarette Cigarettes Per Day: 10 Years Smoked: 5 e-Cigarette/Vaping Use: Never Used Second Hand Smoke Exposure: Yes service: No Current occupational status: employed 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 Cognitive needs: No Hearing needs: No Vision needs: Yes (Glasses) Meds Allergies Allergy/AdvReac Type Severity Reaction Status Date / Time Penicillins (PENICILLINS) Allergy Severe Anaphylaxis Verified 11/10/24 23:47 Home Medications ?Medication ?Instructions ?Recorded ?Confirmed ?Last Taken ?Type fluticasone propionate 50 1 spray intranasal DAILY 03/29/23 10/25/24 Unknown History mcg/actuation nasal spray,suspension Exam Pertinent Lab Results Pertinent Lab Results: Laboratory Tests 11/11/24 00:21 WBC 14.0 H Hgb 15.7 Hct 44.3 Plt Count 258 Sodium 141 Potassium 3.8 Chloride 109 H Carbon Dioxide 23 BUN 17 H Creatinine 1.01 Narrative Narrative: EKG 11/2024 Vent. Rate : 76 BPM Atrial Rate : 76 BPM P-R Int : 188 ms QRS Dur : 104 ms QT Int : 390 ms P-R-T Axes : 59 -6 26 degrees QTcB Int : 438 ms Normal sinus rhythm Normal ECG When compared with ECG of 01-Mar-2023 10:08, No significant change was found Assessment and Plan Assessment Anesthesia Assessment: Chart Reviewed
[2025-02-08 12:13] VITALS: BMI 26.4
--- NOTE | 2025-02-12 07:29 | MHC.SHP ---
Pre-Procedural Eval Section A - 24 Hr Update-Section A only Date of Service: 02/12/25 The patient is an INPATIENT: No The patient has been examined within 24 hours of the surgical procedure. The History & Physical has been completed within 30 days and I have reviewed it.: No Section B - Complete if H&P > 30 days Chief Complaint: gerd,rectal bleeing,screening Relevant Family History (Specify if Yes): No Relevant Social History: Tobacco Use (former smoker) Present Medications: see Short Stay Collaborative assessment Medical History: Significant History (Rectal cancer Acid reflux Overweight with body mass index (BMI) of 26 to 26.9 in adult Urinary frequency Back pain Encounter for annual wellness exam in Medicare patient Rectal bleeding Primary osteoarthritis of hands, bilateral Chronic fatigue DELGADO (dyspnea on exertion) JONI positive Polyarthralgia C) History of Previous Operations: Relevant previous surgery/procedure and date(s) (History of colonoscopy H/O esophagogastroduodenoscopy H/O neck surgery H/O cardiac radiofrequency ablation H/O rhinoplasty) Allergies: Allergies Allergy/AdvReac Type Severity Reaction Status Date / Time Penicillins (PENICILLINS) Allergy Severe Anaphylaxis Verified 12/28/24 10:46 Review of Systems Sugical H&P ROS: Negative: Constitution, Cardiovascular and Respiratory and Yes, Specify: Gastrointestinal (diarrhea, rectal bleeding) Exam Surgical H&P Exam: Normal: Heart, Normal: Lungs, Normal: Extremities and Normal: Abdomen Plan Diagnosis/Plan: Unchanged I have reviewed the history and physical and performed a pertinent physical examination on my patient. No changes have occurred unless specified. Time Spent With Patient Time: Total time managing care of this patient today ____ minutes.
[2025-02-12 08:11] VITALS: BMI 24.7
[2025-02-12] MEDS: Lactated Ringers 1,000 ML 100 ML IVCONT (08:17)
[2025-02-12 08:30] VITALS: BP 116/71; PULSE 80; RESP 18; TEMP 36.7; O2SAT 99
--- NOTE | 2025-02-12 08:35 | HO.ANESPROP2 ---
Documented by User: Desiree Alcantara NP 02/07/25 13:48 HPI - Anesthesia Eval Consult details Narrative: 65yo M for Upper Endoscopy and Colonoscopy PMFSH Active Problems Active Problems: All Active Problems Cannabis hyperemesis syndrome concurrent with and due to cannabis abuse (Acute) Diarrhea (Acute) Bloody stools (Acute) Rectal cancer (Acute) Acid reflux (Acute) Overweight with body mass index (BMI) of 26 to 26.9 in adult (Acute) Urinary frequency (Acute) Back pain (Acute) Encounter for annual wellness exam in Medicare patient (Acute) Rectal bleeding (Acute) Primary osteoarthritis of hands, bilateral (Acute) Chronic fatigue (Acute) DELGADO (dyspnea on exertion) (Acute) Polyarthralgia (Acute) JONI positive (Acute) Celiac disease (Acute) Central sleep apnea (Acute) Daytime somnolence (Acute) Obstructive sleep apnea (Acute) Elevated fasting glucose (Acute) Intermittent chest pain (Acute) Screening for colon cancer (Acute) Screening for prostate cancer (Acute) Overactive bladder (Acute) Encounter to establish care (Acute) GARCIA (nonalcoholic steatohepatitis) (Acute) Benign prostate hyperplasia (Acute) Diverticulosis (Acute) BAKARI on CPAP (Acute) Past Medical History Medical History BAKARI (obstructive sleep apnea) Cannabis hyperemesis syndrome concurrent with and due to cannabis abuse Diarrhea Bloody stools Rectal cancer Acid reflux Overweight with body mass index (BMI) of 26 to 26.9 in adult Urinary frequency Back pain Encounter for annual wellness exam in Medicare patient Rectal bleeding Primary osteoarthritis of hands, bilateral Chronic fatigue DELGADO (dyspnea on exertion) JONI positive Polyarthralgia Celiac disease History of ventricular tachycardia Diverticulitis Hemorrhoids Family History Family History Mother Cancer Surgical History Surgical History History of colonoscopy H/O esophagogastroduodenoscopy H/O neck surgery H/O cardiac radiofrequency ablation H/O rhinoplasty Social History Social History Household Members: Spouse Housing: House Are you a primary acute care occupational therapist to a significant other at home: No Do you presently have visiting nurse or other home services: No Alcohol intake: never Patient Tobacco Use Status: Former Tobacco user Tobacco use type: Cigarette Cigarettes Per Day: 10 Years Smoked: 5 e-Cigarette/Vaping Use: Never Used Second Hand Smoke Exposure: Yes Have you been hit, kicked, punched, or otherwise hurt by someone within the past year? 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 Cognitive needs: No Hearing needs: No Vision needs: Yes (Glasses) Meds Allergies Allergy/AdvReac Type Severity Reaction Status Date / Time Penicillins (PENICILLINS) Allergy Severe Anaphylaxis Verified 02/12/25 08:13 Assessment and Plan Assessment Anesthesia Assessment: Chart Reviewed Documented by User: Darcy Sierra DO 02/12/25 08:37 [facility] Past Medical History Medical History BAKARI (obstructive sleep apnea) Cannabis hyperemesis syndrome concurrent with and due to cannabis abuse Diarrhea Bloody stools Rectal cancer Acid reflux Overweight with body mass index (BMI) of 26 to 26.9 in adult Urinary frequency Back pain Encounter for annual wellness exam in Medicare patient Rectal bleeding Primary osteoarthritis of hands, bilateral Chronic fatigue DELGADO (dyspnea on exertion) JONI positive Polyarthralgia Celiac disease History of ventricular tachycardia Diverticulitis Hemorrhoids Family History Family History Mother Cancer Family history of problems with anesthesia: No Surgical History Surgical History History of colonoscopy H/O esophagogastroduodenoscopy H/O neck surgery H/O cardiac radiofrequency ablation H/O rhinoplasty History of Problems with Anesthesia: No Social History Social History Household Members: Spouse Housing: House Are you a primary acute care occupational therapist to a significant other at home: No Do you presently have visiting nurse or other home services: No Alcohol intake: never Patient Tobacco Use Status: Former Tobacco user Tobacco use type: Cigarette Cigarettes Per Day: 10 Years Smoked: 5 e-Cigarette/Vaping Use: Never Used Second Hand Smoke Exposure: Yes Have you been hit, kicked, punched, or otherwise hurt by someone within the past year? 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 Cognitive needs: No Hearing needs: No Vision needs: Yes (Glasses) Meds Allergies Allergy/AdvReac Type Severity Reaction Status Date / Time Penicillins (PENICILLINS) Allergy Severe Anaphylaxis Verified 02/12/25 08:13 Exam Exam Date and Time: 02/12/25 0835 Height,Weight and Vital Signs: Height 5 ft 9 in Weight 75.8 kg Vital Signs Temperature 98.1 F 02/12/25 08:30 Pulse Rate 80 02/12/25 08:30 Respiratory Rate 18 02/12/25 08:30 Blood Pressure 116/71 02/12/25 08:30 Pulse Oximetry 99 02/12/25 08:30 Oxygen Delivery Method Room Air 02/12/25 08:30 Temperature 98.1 F 02/12/25 08:30 Pulse Rate 80 02/12/25 08:30 Respiratory Rate 18 02/12/25 08:30 Blood Pressure 116/71 02/12/25 08:30 Pulse Oximetry 99 02/12/25 08:30 Oxygen Delivery Method Room Air 02/12/25 08:30 Airway Mallampati Class: II TM Dist: >3cm Neck ROM: Full Loose/Missing/Broken Teeth: No (permanent upper bridge but no loose or broken teeth) Heart: S1S2 Lungs: CTAB Assessment and Plan Assessment Anesthesia Assessment: Anesthesia Plan Discussed and Chart Reviewed Final Anesthetic Review Family History of Problems with Anesthesia: No History of Problems with Anesthesia: No NPO: Yes ASA Class: II Final Preanesthetic Review: No Changes in Pt Med Stat, Meds/Allgs Chart Reviewed, Consent Obtained/Reviewed and Anes Risks/Benef Reviewed Patient Risk: Low Procedure Risk: Low Anesthetic Plan Anesthetic Plan: MAC: and Agree w/ Assess. and Plan Disposition: Standard PACU
--- NOTE | 2025-02-12 09:18 | P.OPN-COLO_ITS ---
Colonoscopy Operative Note Operative Note Date of Service: 02/12/25 Narrative: FLEXIBLE TRANSORAL UPPER GASTROINTESTINAL ENDOSCOPY WITH BIOPSIES AND SNARE POLYPECTOMY AND COLONOSCOPY TILL CECUM WITH random biopsies Pre-op diagnosis: Surveillance for colon polyps, rectal bleeding, intermittent diarrhea, GERD Post-op diagnosis: GERD, Gastritis, gastric polyps, Diverticulosis, hemorrhoids Endoscopist:? Alexandro Woods MD Anesthesia:?MAC UPPER ENDOSCOPY Consent: Indications for the procedure and potential complications of bleeding, perforation, reaction to medications and missed diagnosis were discussed with the patient and informed consent was obtained. Instrument: Olympus GIF H 190 mid size upper endoscope Monitoring: Vital signs and clinical assessment, continuous EKG monitoring, Pulse oximetry, Carbon Dioxide monitoring and blood pressure monitoring were done throughout the procedure. Procedure: The patient was placed in the left lateral decubitis position and pre-procedure medications were administered and a bite block was placed. The endoscope was inserted into the mouth and advanced under direct vision to the third part of duodenum. A careful inspection was made as the upper endoscope was withdrawn including a retroflexed examination of the proximal stomach; Findings and interventions are described below. Findings: Larynx: Normal Esophagus: GE junction at 44 cms. No esophagitis or Bui's. Stomach: A few 5 to 10 mm benign appearing polyps in the gastric body and fundus - 1 polyp was removed with a cold snare. Moderate diffuse gastric erythema - biopsies were obtained from the gastric body and antrum. Grade 2 flap valve on retroflexed examination of the cardia. Duodenum: Normal bulb and descending duodenum Biopsies were obtained from descending duodenum to check for celiac sprue Intervention: Biopsies as noted above COLONOSCOPY PROCEDURE NOTE Instrument: Olympus CF H 190 L variable stiffness adult colonoscope Monitoring: Vital signs and clinical assessment, intermittent blood pressure monitoring, continuous EKG monitoring, Pulse oximetry and Carbon Dioxide monitoring were done throughout the procedure. Please see anesthesia flowsheet. Colon withdrawl time was 23 minutes. Procedure: The patient was placed in the left lateral decubitis position and pre-procedure medications were administered. After a digital rectal examination of the ano-rectum, the video colonoscope was inserted into the rectum and advanced through the colon to the cecum. The colonoscope was slowly withdrawn in a retrograde panoramic fashion and the colon mucosa was carefully examined including a retroflexed view of the rectum. Findings and interventions are described below. Procedure Difficulty: without difficulty Findings: Terminal Ileum: Not evaluated Cecum: Normal Ascending Colon: Normal Transverse Colon: Normal Descending Colon: Moderate diverticulosis Sigmoid Colon: Moderate diverticulosis Rectum: Normal Ano-rectum: Moderate internal hemorrhoids Colon preparation: Good after copious irrigation and fair in the rt colon. [place] Bowel Preparation Scale Right colon; 3 Transverse colon: 2 Left colon; 2 (0 = Unprepared colon segment with mucosa not seen due to solid stool that cannot be cleared. 1 = Portion of mucosa of the colon segment seen, but other areas of the colon segment not well seen due to staining, residual stool and/or opaque liquid. 2 = Minor amount of residual staining, small fragments of stool and/or opaque liquid, but mucosa of colon segment seen well. 3 = Entire mucosa of colon segment seen well with no residual staining, small fragments of stool or opaque liquid) Impression and Post Procedure Diagnosis: Endoscopy Findings: ESOPHAGUS: Normal STOMACH: Diffuse gastritis and benign-appearing gastric polyp DUODENUM: Normal - biopsied to check for celiac sprue Colonoscopy Findings: No polyps were detected Biopsies were obtained from right and left colon to check for microscopic colitis. Moderate diverticulosis seen in the left colon Moderate hemorrhoids on retroflexed exam - likely source for rectal bleeding. Plan: Pt has a FU appointment on 03/06/25 with Janay Almeida NP Repeat Colonoscopy in 1-2 years due to fair prep in the right colon. (Dulcolax 10 mg daily for 7 days prior to next colonoscopy appointment) A summary of above findings and relevant handouts were given to the patient. BIOPSIES SHOWED: A. Small bowel, biopsy: Duodenal mucosa with mildly increased intraepithelial lymphocytes and preserved villous architecture. See comment. B. Stomach, antrum, biopsy: Antral-type mucosa with mild chronic inactive inflammation; no Helicobacter organisms seen. C. Stomach, body, biopsy: Oxyntic mucosa with mild chronic inactive inflammation; no Helicobacter organisms seen. D. Stomach, polypectomy: Clinically polypoid oxyntic mucosa with moderate chronic inactive inflammation; no Helicobacter organisms seen. E. Colon, right, biopsy: Colonic mucosa within normal limits; negative for microscopic colitis. F. Colon, left, biopsy: Colonic mucosa within normal limits; negative for microscopic colitis. COMMENT: The findings in part A non-specific. The differential diagnosis is broad and includes infection (e.g. viral or H. pylori), medication/drugs (e.g. NSAIDs), gluten sensitivity/celiac disease, bacterial overgrowth, tropical sprue, immunodeficiency syndromes (e.g. IgA deficiency, CVID), autoimmune enteropathy, Crohns and collagen vascular disease, among others. Please correlate with clinical and other laboratory findings Patient was placed on the procedure recall list for repeat colonoscopy in 1 year.
[2025-02-12 10:05] VITALS: BP 104/63; PULSE 82; RESP 16; TEMP 36.2; O2SAT 96
[2025-02-12 10:20] VITALS: BP 109/65; PULSE 79; RESP 16; TEMP 36.2; O2SAT 96
== END 2025-02-12 10:48 | disposition home or self-care (01) ==
PROVIDERS: PCP Physician Assistant Medical; Visit Provider Internal Medicine Gastroenterology
PROC: (CPT 45380; principal; 2025-02-12 09:30)
DX: Z12.11 Encounter for screening for malignant neoplasm of colon (principal); K21.9 Gastro-esophageal reflux disease without esophagitis; K62.5 Hemorrhage of anus and rectum; Z86.0109 Personal history of other colon polyps; K31.7 Polyp of stomach and duodenum; K29.70 Gastritis, unspecified, without bleeding; K64.8 Other hemorrhoids; K57.30 Diverticulosis of large intestine without perforation or abscess without bleeding
CPT/HCPCS: 45380; 43239; 43251; 88305; 88313; 88342; J2003; J2250; J2704; J3010

== ENCOUNTER → 2025-02-12 07:51 | Outpatient (BNV) | payer MEDICARE, MEDICAID, SELFPAY | PROVIDERS: PCP Physician Assistant Medical; Visit Provider Internal Medicine Gastroenterology | DX: K62.5 Hemorrhage of anus and rectum (principal); R19.7 Diarrhea, unspecified; K57.90 Diverticulosis of intestine, part unspecified, without perforation or abscess without bleeding; K64.8 Other hemorrhoids; K21.9 Gastro-esophageal reflux disease without esophagitis; K29.70 Gastritis, unspecified, without bleeding; K31.7 Polyp of stomach and duodenum | CPT/HCPCS: 43251; 45378 ==

== ENCOUNTER 2025-03-06 10:05 | Outpatient (AMB) | payer MEDICARE, MEDICAID, SELFPAY ==
--- NOTE | 2025-03-06 10:07 | A.OFFVIS_ITS ---
Vital Signs 03/06/25 10:13 Height 5 ft 9 in Weight 174 lb BMI 25.7 BP 120/50 L Blood Pressure Location Lt brachial Position Sitting Pulse 75 Pulse Oximetry (%) 96 Oxygen Delivery Method Room Air Intake Visit Reasons: S/P double; Dr. Woods Intake Note: Patient follow up for Colonoscopy/EGD and CT scan results Patient denies any GI issues. Director Of Teacher Education Required: No Accompanied by: Self / Same As Patient Allergies Penicillins (PENICILLINS) Allergy (Severe, Verified 03/06/25 10:07) Anaphylaxis HPI HPI S/P double; Dr. Woods: Details: Patient is a 64-year-old male with PMH of chronic fatigue, OA and celiac disease. F/u after EGD and colonoscopy done 02/12 for h/o GERD, celiac dz, and prior imaging findings (diverticulosis, fatty liver). Pt continues to report mild upper GI sx consistent with prior reflux but considers these mild and not warranting pharmacotherapy at this time. Recent colonoscopy prep was suboptimal due to confusion with instructions, requiring intra-procedure irrigation and resulting in recommendations for earlier repeat. Pt actively engaged in lifestyle changes?improved diet (watching intake, fiber emphasis), regular exercise, and reports significant wt loss. No recent hospitalizations, UC visits, or GI flares. Continues to avoid smoking, minimal/no EtOH. No melena, hematochezia, or new abdominal pain. Chronic fatigue persists; per prior lab and vitamin w/u. [facility] Medical History (Updated 03/06/25 @ 12:38 by Janay Almeida CNP) Internal hemorrhoids Fatty liver BAKARI (obstructive sleep apnea) Cannabis hyperemesis syndrome concurrent with and due to cannabis abuse Diarrhea Bloody stools Rectal cancer Acid reflux Overweight with body mass index (BMI) of 26 to 26.9 in adult Urinary frequency Back pain Encounter for annual wellness exam in Medicare patient Rectal bleeding Primary osteoarthritis of hands, bilateral Chronic fatigue DELGADO (dyspnea on exertion) JONI positive Polyarthralgia Celiac disease History of ventricular tachycardia Diverticulitis Hemorrhoids Surgical History History of colonoscopy (~02/12/25) H/O esophagogastroduodenoscopy H/O neck surgery H/O cardiac radiofrequency ablation H/O rhinoplasty Family History Mother Cancer Social History Household Members: Spouse Housing: House Are you a primary caretaker grounds to a significant other at home: No Do you presently have visiting nurse or other home services: No Alcohol intake: never Patient Tobacco Use Status: Former Tobacco user Tobacco use type: Cigarette Cigarettes Per Day: 10 Years Smoked: 5 e-Cigarette/Vaping Use: Never Used Second Hand Smoke Exposure: Yes service: No Current occupational status: employed 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 Cognitive needs: No Hearing needs: No Vision needs: Yes (Glasses) Review of Systems Const Reports as per HPI ENT Reports as per HPI Card Reports as per HPI Resp Reports as per HPI GI Reports as per HPI Reports as per HPI Physical Exam Vital Signs: Last Vital Signs Pulse 75 03/06/25 10:13 BP 120/50 L 03/06/25 10:13 Pulse Ox 96 03/06/25 10:13 Oxygen Delivery Method Room Air 03/06/25 10:13 BMI result Body Mass Index 25.7 Const General: healthy appearing, no acute distress and well developed Nutritional Appearance: average body habitus Orientation/consciousness: patient oriented x3 HEENT Head: Yes normal to inspection, Yes normocephalic and Yes atraumatic Face and sinus: Yes normal facial exam Eyes General: appearance normal, both eyes and all related structures Neck Neck: Yes normal visual inspection Resp Effort & Inspection: normal respiratory effort, able to speak in complete sentences, no tracheal deviation and symmetric chest movement Cardio Jugular venous distension: no JVD Neuro General: patient oriented x3 Gait exam (Neuro): Normal gait present Psych Appearance: grossly normal Mental Status: mental status grossly normal Speech and movement: Normal speech and movement present Affect: normal affect Attitude: cooperative Thought process: Normal thought process present Thought content: Normal thought content present Insight: Good insight present (Psych) Judgement: Good judgement present (Psych) Results Reviewed Results Reviewed: Operative Note Date of Service: 02/12/25 Narrative: FLEXIBLE TRANSORAL UPPER GASTROINTESTINAL ENDOSCOPY WITH BIOPSIES AND SNARE POLYPECTOMY AND COLONOSCOPY TILL CECUM WITH random biopsies Pre-op diagnosis: Surveillance for colon polyps, rectal bleeding, intermittent diarrhea, GERD Post-op diagnosis: GERD, Gastritis, gastric polyps, Diverticulosis, hemorrhoids Endoscopist: Alexandro Woods MD Anesthesia: MAC UPPER ENDOSCOPY Consent: Indications for the procedure and potential complications of bleeding, perforation, reaction to medications and missed diagnosis were discussed with the patient and informed consent was obtained. Instrument: Olympus GIF H 190 mid size upper endoscope Monitoring: Vital signs and clinical assessment, continuous EKG monitoring, Pulse oximetry, Carbon Dioxide monitoring and blood pressure monitoring were done throughout the procedure. Procedure: The patient was placed in the left lateral decubitis position and pre-procedure medications were administered and a bite block was placed. The endoscope was inserted into the mouth and advanced under direct vision to the third part of duodenum. A careful inspection was made as the upper endoscope was withdrawn including a retroflexed examination of the proximal stomach; Findings and interventions are described below. Findings: Larynx: Normal Esophagus: GE junction at 44 cms. No esophagitis or Bui's. Stomach: A few 5 to 10 mm benign appearing polyps in the gastric body and fundus - 1 polyp was removed with a cold snare. Moderate diffuse gastric erythema - biopsies were obtained from the gastric body and antrum. Grade 2 flap valve on retroflexed examination of the cardia. Duodenum: Normal bulb and descending duodenum Biopsies were obtained from descending duodenum to check for celiac sprue Intervention: Biopsies as noted above COLONOSCOPY PROCEDURE NOTE Instrument: Olympus CF H 190 L variable stiffness adult colonoscope Monitoring: Vital signs and clinical assessment, intermittent blood pressure monitoring, continuous EKG monitoring, Pulse oximetry and Carbon Dioxide monitoring were done throughout the procedure. Please see anesthesia flowsheet. Colon withdrawl time was 23 minutes. Procedure: The patient was placed in the left lateral decubitis position and pre-procedure medications were administered. After a digital rectal examination of the ano-rectum, the video colonoscope was inserted into the rectum and advanced through the colon to the cecum. The colonoscope was slowly withdrawn in a retrograde panoramic fashion and the colon mucosa was carefully examined including a retroflexed view of the rectum. Findings and interventions are described below. Procedure Difficulty: without difficulty Findings: Terminal Ileum: Not evaluated Cecum: Normal Ascending Colon: Normal Transverse Colon: Normal Descending Colon: Moderate diverticulosis Sigmoid Colon: Moderate diverticulosis Rectum: Normal Ano-rectum: Moderate internal hemorrhoids Colon preparation: Good after copious irrigation and fair in the rt colon. [place] Bowel Preparation Scale Right colon; 3 Transverse colon: 2 Left colon; 2 (0 = Unprepared colon segment with mucosa not seen due to solid stool that cannot be cleared. 1 = Portion of mucosa of the colon segment seen, but other areas of the colon segment not well seen due to staining, residual stool and/or opaque liquid. 2 = Minor amount of residual staining, small fragments of stool and/or opaque liquid, but mucosa of colon segment seen well. 3 = Entire mucosa of colon segment seen well with no residual staining, small fragments of stool or opaque liquid) Impression and Post Procedure Diagnosis: Endoscopy Findings: ESOPHAGUS: Normal STOMACH: Diffuse gastritis and benign-appearing gastric polyp DUODENUM: Normal - biopsied to check for celiac sprue Colonoscopy Findings: No polyps were detected Biopsies were obtained from right and left colon to check for microscopic colitis. Moderate diverticulosis seen in the left colon Moderate hemorrhoids on retroflexed exam - likely source for rectal bleeding. Plan: Pt has a FU appointment on 03/06/25 with Janay Almeida NP Repeat Colonoscopy in 1-2 years due to fair prep in the right colon. (Dulcolax 10 mg daily for 7 days prior to next colonoscopy appointment) A summary of above findings and relevant handouts were given to the patient. Patient was placed on the procedure recall list for repeat colonoscopy in 1 year. BIOPSIES SHOWED: A. Small bowel, biopsy: Duodenal mucosa with mildly increased intraepithelial lymphocytes and preserved villous architecture. See comment. B. Stomach, antrum, biopsy: Antral-type mucosa with mild chronic inactive inflammation; no Helicobacter organisms seen. C. Stomach, body, biopsy: Oxyntic mucosa with mild chronic inactive inflammation; no Helicobacter organisms seen. D. Stomach, polypectomy: Clinically polypoid oxyntic mucosa with moderate chronic inactive inflammation; no Helicobacter organisms seen. E. Colon, right, biopsy: Colonic mucosa within normal limits; negative for microscopic colitis. F. Colon, left, biopsy: Colonic mucosa within normal limits; negative for microscopic colitis. COMMENT: The findings in part A non-specific. The differential diagnosis is broad and includes infection (e.g. viral or H. pylori), medication/drugs (e.g. NSAIDs), gluten sensitivity/celiac disease, bacterial overgrowth, tropical sprue, immunodeficiency syndromes (e.g. IgA deficiency, CVID), autoimmune enteropathy, Crohns and collagen vascular disease, among others. Please correlate with clinical and other laboratory findings Clinical History Pre-Op Dx: GERD, rectal bleeding, screening Post-Op Dx: Gastritis, gastric polyp, diverticulosis, hemorrhoids Date of Service: 11/13/24 Procedure(s): CT abdomen pelvis w IV con Accession Number(s): [id number] cc: Catarina Ye PA-C; Janay Almeida VP [employer]~ Report Number: [id number]: Total DLP = 542.00 mGy-cm EXAMINATION: CT ABDOMEN PELVIS WITH IV CONTRAST HISTORY: K92.1 - Melena COMPARISON: There are no prior studies for available comparison. TECHNIQUE: CT scan of the abdomen and pelvis was performed following administration of 85 mL Omnipaque 350 using standard departmental protocol. Coronal and sagittal reformatted images were generated and reviewed. Oral contrast material was not administered at the request of the referring physician. This CT exam was performed with one or more of the following dose reduction techniques: automated exposure control, adjustment of the mA and/or kV according to patient size, use of iterative reconstruction technique. DLP: 542 mGy-cm FINDINGS: LOWER CHEST: There is minimal dependent atelectasis at both lung bases.. There is no pleural effusion. CARDIOVASCULATURE: The heart is normal in size. There is no pericardial effusion. LIVER: The liver is normal in size and contour, but demonstrates heterogeneously decreased attenuation, consistent with steatosis. There is focal fatty sparing adjacent to the gallbladder. No liver mass is identified. The hepatic and portal veins are patent. GALLBLADDER / BILE DUCTS: The gallbladder is unremarkable. There is no intra or extrahepatic biliary ductal dilatation. SPLEEN: The spleen is normal in size. No focal splenic lesion is identified. PANCREAS: The pancreas is unremarkable in appearance. ADRENAL GLANDS: Within normal limits. KIDNEYS/RETROPERITONEUM: No renal calculi are identified. There is no hydronephrosis. No renal masses are identified. LYMPH NODES: No abdominal or pelvic lymphadenopathy. VASCULATURE: The abdominal aorta is normal in caliber. MESENTERY/PERITONEUM: No free fluid. No masses. There is no free intraperitoneal gas. STOMACH: The stomach is collapsed, limiting evaluation. SMALL BOWEL: The small bowel is normal in caliber. COLON: There is diverticulosis of the descending and sigmoid colon without evidence of diverticulitis. APPENDIX: Normal. URINARY BLADDER/PELVIC ORGANS: There are multiple bladder diverticula on the right measuring up to 1.5 cm in size. The prostate is enlarged. BONES / SOFT TISSUES: No suspicious bony or soft tissue abnormalities. CT/CT abdomen pelvis w IV con IMPRESSION: 1. Diverticulosis of the descending and sigmoid colon, without evidence of diverticulitis. 2. Hepatic steatosis. 3. Right-sided bladder diverticula. Assessment & Plan Assessment & Plan (1) Diverticulosis: Comment: 02/12/25 colonoscopy complete with fair prep- diverticulosis (sigmoid, descending), moderate internal hemorrhoids. Recommendation for repeat in 1 year due to adequacy of prep. Code(s): K57.90 - Diverticulosis of intestine, part unspecified, without perforation or abscess without bleeding Category: Medical (2) Acid reflux: Comment: 02/12/25 EGD -Gastritis, 5 to 10 mm gastric polypoid Code(s): K21.9 - Gastro-esophageal reflux disease without esophagitis Category: Medical Qualifiers: Esophagitis presence: esophagitis presence not specified Qualified Code(s): K21.9 - Gastro-esophageal reflux disease without esophagitis Plan: Endoscopy c/w gastritis, pt declines PPI/H2RA due to mild sx. Additional Testing: None indicated now. Medications: None started. Lifestyle Recommendations: - Continue to avoid GERD triggers (spicy, fatty, caffeinated foods/bevs, EtOH, large/late meals, lying down after eating, tight clothes). - Maintain hydration; watch for sx triggers and individualize avoidance. - Handout re: GERD/lifestyle provided. Referrals / Coordination: None. F/u Plan: Monitor, reinforce lifestyle at future visits or if sx worsen. (3) Fatty liver: Code(s): K76.0 - Fatty (change of) liver, not elsewhere classified Category: Medical Plan: Stable;No concerning imaging or labs except mild LFT elevation (ALT), likely nonalcoholic fatty liver; last draw non-fasting. Working on lifestyle modifications. Additional Testing: Routine CMP, LFTs?prefer fasting; coordinate with PCP?s May 2025 panel; repeat prior to Nov 2025 visit if still elevated. Medications: None at this time. Lifestyle Recommendations: - Maintain/reinforce weight loss efforts, healthy diet, regular physical activity. - Handout re: fatty liver lifestyle management provided. Referrals / Coordination: None. F/u Plan: Reassess LFTs before next GI f/u; pt to complete next panel fasting when possible. (4) Internal hemorrhoids: Code(s): K64.8 - Other hemorrhoids Category: Medical Plan: Stable; no recent bleeding per pt. Supsect as source of prior minor hematochezia per pt; benign finding. Additional Testing: None indicated. Medications: None. Lifestyle Recommendations: Continue dietary modifications (fiber, regularity). Referrals / Coordination: None. F/u Plan: PRN if recurrent/prolonged bleeding or sx. (5) Chronic fatigue: Code(s): R53.82 - Chronic fatigue, unspecified Category: Medical Plan: Persistent; not explained by GI w/u or labs. Normal CBC, chemistries, vitamin levels; no GI correlation. Additional Testing: None from GI. Medications: N/A. Lifestyle Recommendations: Continue non-GI w/u with PCP. Referrals / Coordination: PCP to manage/further eval. F/u Plan: PRN, as needed with primary. Plan Follow-up in 8 months or sooner as needed Time: I spent a total of 30 minutes on the date of encounter which includes: Preparing to see the patient (reviewed previous documentation, test results and medical history) Performing a medically appropriate exam and/or evaluation Ordering medications, tests, and procedures Documenting clinical information in the health record Coding Level of Care Code Established Pt Est Pt Level 4 (49759) Patient Type Established Diagnoses Diverticulosis K57.90 Gastroesophageal reflux disease, unspecified whether esophagitis present K21.9 Esophagitis presence: esophagitis presence not specified Fatty liver K76.0 Internal hemorrhoids K64.8 Chronic fatigue R53.82
[2025-03-06 10:13] VITALS: BP 120/50; PULSE 75; O2SAT 96; BMI 25.7
--- OUTSIDE RECORDS SUMMARY | 2025-03-06 12:13 | XMS_ITS | Clinical Summary ---
Author Organization [facility] Address [address] [facility] [address] [place] [id number] Phone Care Team Providers Care Door To Door Salesperson Name Role Phone Lana Villegas MD Primary Care P rovider Herb Arrington MD Unavailable [phone] Allergies Active Allergy Reactions Criticality Noted Date [...] TOBACCO SCREENING 01/25/1972 HEPATITIS C SCREENING 1977 COLOGUARD 01/25/2004 COLONOSCOPY 01/25/2004 COLORECTAL CANCER SCREENING 01/25/2004 FIT TEST 01/25/2004 FOBT 01/25/2004 SIGMOIDOSCOPY 01/25/2004 VIRTUAL COLONOSCOPY 01/25/2004 PNEUMOCOCCAL VACCINES (50+ years) (1 of 1 - PCV) 2009 ZOSTER VACCINES (1 of 2) 2009 DEPRESSION SCREENING 03/23/2017 03/23/2016 Adult Td,Tdap Booster 07/12/2021 07/13/2011 ABDOMINAL AORTIC ANEURYSM (AAA) SCREENING 01/25/2024 INFLUENZA VACCINE (#1) 2024 , 01/04/2012 COVID-19 VACCINE (2 - 2024-2 6 season) 2024 07/04/2020 RSV VACCINE (1 - 1-dose 75+ series) 2034 HEPATITIS A VACCINES Aged Out No long er eligible based on patient's age to complete this topic HIB VACCINES Aged Out No longer eligi ble based on patient's age to complete this topic IPV VACCINES Aged Out No longer eligi ble based on patient's age to complete this topic MENINGOCOCCAL VACCINES (ACWY) Aged Out No longer eligible based on patient's age to complete this topic MENINGOCOCCAL VACCINES (B) Aged Out N o longer eligible based on patient's age to complete this topic Medical Devices Implanted Type Area Pilot Plant Supervisor Device Identifier Shelf Expiration Date Model / Serial / Lot Device Vascular Sealing 8fr - Order In Qty Of 10 Only - Angioseal Vip Plus Bx/10 Ea - Minimum Order Of 10 Each - [id number] Implanted:Qty : 1 on 07/24/2016 by Zechariah De Leon MD at [facility] Closure Device Right: Femoral [employer] [id number] / / [place] [address] [place] [address] [facility] Advance Directives For more information, please contact: [phone] (9AM - 5PM [facility], Wednesday-Wednesday) * Full Code (Presumed) (Latest Code Status on File) Date Activated Date Inactivated Comments 07/24/2016 12:02 PM 07/28/2016 4:01 AM Care Teams Door To Door Salesperson Relationship Specialty Start Date End Date Lana Villegas MD PCP - General Internal Medicine 01/14/16 Herb Arrington MD [address] [place] [address] Cardiology 03/23/16 Additional Source Comments The information contained in this document represents components of the legal health record. It is not the complete legal health record.[facility]
--- OUTSIDE RECORDS SUMMARY | 2025-03-06 12:13 | XMS_ITS | Encounter Summary ---
Author Organization [facility] Address [address] [place] [address] Phone Care Team Providers Care Group Fitness Instructor Name Role Phone Lana Villegas MD Primary Care P rovider Herb Arrington MD Unavailable [phone] Encounter Details Date Type Department Care Team (Late st Contact Info) Description 04/24/2016 Procedure Pass [facility] Radiology [address] [place] [address] Social History Tobacco Use Types Packs/Day Years [...] documented as of this encounter Care Teams Group Fitness Instructor Relationship Specialty Start Date End Date Lana Villegas MD PCP - General Internal Medicine 01/14/16 Herb Arrington MD [address] [place] [address] Cardiology 03/23/16 documented as of this encounter Additional Source Comments The information contained in this document represents components of the legal health record. It is not the complete legal health record.[facility]
--- OUTSIDE RECORDS SUMMARY | 2025-03-06 12:13 | XMS_ITS | Encounter Summary ---
Author Organization [facility] Address [address] [facility] [address] [facility] [address] [place] [address] Phone Care Team Providers Care Cardiology Technologist Name Role Phone Lana Villegas MD Primary Care P rovider Herb Arrington MD Unavailable Encounter Details Date Type Department Care Team (Late st Contact Info) Description 07/24/2016 Procedure Pass [facility] Electrophysiology Lab [address] [place] [id number] Social History Tobacco Use Types Packs/Day Years [...] documented as of this encounter Care Teams Cardiology Technologist Relationship Specialty Start Date End Date Lana Villegas MD PCP - General Internal Medicine 01/14/16 Herb Arrington MD [address] [place] [address] Cardiology 03/23/16 documented as of this encounter Additional Source Comments The information contained in this document represents components of the legal health record. It is not the complete legal health record.[facility]
--- OUTSIDE RECORDS SUMMARY | 2025-03-06 12:13 | XMS_ITS | Clinical Summary ---
Author Organization [facility] Address [address] [place] [address] Care Team Providers Care Refrigeration Repair Supervisor Name Role Phone Unavailable Primary Care Provider Unavailabl e Social History Tobacco Use Types Packs/Day Years Used Date Smoking Tobacco: Never Assessed Sex and Gender Information Value Date Recorded Sex Assigned at Not on file Legal Sex Male 2:35 AM EST Gender Identity Not on file Sexual Orientation Not on file Plan of Treatment Health Maintenance Due Date Last Done Comments Colorectal Cancer Screening: Colonoscopy 1959 Zoster Vaccines (1 of 2) 2009 Pneumococcal Vaccine: 50+ Ye ars (2 of 2 - PCV) 10/24/2016 10/25/2015 Abdominal Aortic Aneurysm (A AA) Screen 03/15/2022 Cholesterol Screening (Lipid Panel) 03/15/2022 Hepatitis C Screening 03/15/2022 Social Influencers of Health Screening 03/15/2022 Falls Risk Assessment 01/25/2024 Depression Screening 04/12/2024 COVID-19 Vaccine (1 - 2024-2 6 season) 2024 Influenza Vaccine (#1) 2024 DTaP,Tdap,and [...]
--- OUTSIDE RECORDS SUMMARY | 2025-03-06 12:13 | XMS_ITS | Encounter Summary ---
Author Organization [facility] Address [address] [facility] [address] [place] [address] Phone Care Team Providers Care Computer Help Desk Representative Name Role Phone Lana Villegas MD Primary Care P rovider Herb Arrington MD Unavailable [phone] Encounter Details Date Type Department Care Team (Late st Contact Info) Description 03/23/2016 Transcribe Orders [facility] Echocardiography [address] [place] [address] [address] [place] [address] [email or web address] Social History Tobacco Use Types Packs/Day Years [...] documented as of this encounter Care Teams Computer Help Desk Representative Relationship Specialty Start Date End Date Lana Villegas MD PCP - General Internal Medicine 01/14/16 Herb Arrington MD [address] [place] [address] Cardiology 03/23/16 documented as of this encounter Additional Source Comments The information contained in this document represents components of the legal health record. It is not the complete legal health record.[facility]
== END 2025-03-06 10:40 | disposition home or self-care (01) ==
LOC: HO.HGI 10:06
PROVIDERS: PCP Physician Assistant Medical; Visit Provider Nurse Practitioner Family
DX: K57.90 Diverticulosis of intestine, part unspecified, without perforation or abscess without bleeding (principal); K21.9 Gastro-esophageal reflux disease without esophagitis; K76.0 Fatty (change of) liver, not elsewhere classified; K64.8 Other hemorrhoids; R53.82 Chronic fatigue, unspecified
CPT/HCPCS: 99214

== ENCOUNTER → 2025-03-06 10:05 | Outpatient (BNVA) | payer MEDICARE, MEDICAID, SELFPAY | PROVIDERS: PCP Physician Assistant Medical; Visit Provider Nurse Practitioner Family | DX: K57.90 Diverticulosis of intestine, part unspecified, without perforation or abscess without bleeding (principal); K21.9 Gastro-esophageal reflux disease without esophagitis; K76.0 Fatty (change of) liver, not elsewhere classified; K64.8 Other hemorrhoids; R53.82 Chronic fatigue, unspecified | CPT/HCPCS: 99212 ==

== ENCOUNTER 2025-03-19 10:02 | Outpatient (AMB) | payer MEDICARE, MEDICAID, SELFPAY ==
--- NOTE | 2025-03-19 10:03 | MHC.OFFVIS ---
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 Ye. He has a past medical history of internal hemorrhoids, fatty liver, obstructive sleep apnea, rectal cancer, acid reflux, back pain, osteoarthritis, chronic fatigue, polyarthralgia, celiac disease, ventricular tachycardia status post ablation in 2016, diverticulitis, and enlarged prostate. In discussion with the patient today he discusses a longstanding history of lower urinary tract symptoms since the and followed up with a urologist many years ago in [place] and has since been on Flomax 0.8 mg daily. He discusses most recently following up with his PCP in discussing ongoing lower urinary tract symptoms he had been experiencing at which time recommendations were made for urology referral for further assessment evaluation. In review of patient's chart it does appear patient has had a recent CT of the abdomen and pelvis with IV contrast that noted the kidneys with no calculi, hydronephrosis, or renal masses bilaterally. There are multiple bladder diverticula on the right measuring up to 1.5 cm in size. The prostate is enlarged. We did discussed these findings at length. PSA 11/03 2.6. He reports he experiences urinary frequency, nocturia up to 3 times per night, urinary hesitancy, and intermittent episodes of dysuria. In office urinalysis results reviewed with the patient today negative leukocytes negative nitrates negative microscopic hematuria. PVR 81 mL. We discussed lifestyle modifications to assist with lower urinary tract symptoms such as bladder triggers and irritants as well as the importance of limiting fluids 2-3 hours prior to bed to decrease episodes of nocturia. We also discussed the role of prediabetes in relation to lower urinary tract symptoms as well as overall health and well-being. He denies hematuria, foul smelling urine, flank pain, fever, and or chills. All questions were answered. He otherwise offers no other issues or concerns at this time. [facility] Medical History Internal hemorrhoids Fatty liver BAKARI (obstructive sleep apnea) Cannabis hyperemesis syndrome concurrent with and due to cannabis abuse Diarrhea Bloody stools Rectal cancer Acid reflux Overweight with body mass index (BMI) of 26 to 26.9 in adult Urinary frequency Back pain Encounter for annual wellness exam in Medicare patient Rectal bleeding Primary osteoarthritis of hands, bilateral Chronic fatigue DELGADO (dyspnea on exertion) JONI positive Polyarthralgia Celiac disease History of ventricular tachycardia Diverticulitis Hemorrhoids Surgical History History of colonoscopy (~02/12/25) H/O esophagogastroduodenoscopy H/O neck surgery H/O cardiac radiofrequency ablation H/O rhinoplasty Family History Mother Cancer Social History Household Members: Spouse Housing: House Are you a primary healthcare marketer to a significant other at home: No Do you presently have visiting nurse or other home services: No Alcohol intake: never Patient Tobacco Use Status: Former Tobacco user Tobacco use type: Cigarette Cigarettes Per Day: 10 Years Smoked: 5 e-Cigarette/Vaping Use: Never Used Second Hand Smoke Exposure: Yes service: No Current occupational status: employed 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 Cognitive needs: No Hearing needs: No Vision needs: Yes (Glasses) Review of Systems Const All systems reviewed & are unremarkable except as noted in HPI and below Physical Exam Const General: cooperative, healthy appearing, comfortable, no acute distress, well developed, alert and awake Orientation/consciousness: patient oriented x3 HEENT Head: Yes normal to inspection, Yes normocephalic and Yes atraumatic Ears: hearing grossly normal bilaterally Eyes General: appearance normal, both eyes and all related structures Neck Neck: Yes normal visual inspection and Yes trachea midline Chest Chest palpation & inspection: normal inspection of the chest Resp Effort & Inspection: normal respiratory effort and able to speak in complete sentences Cardio Rate: regular rate GI Inspection: Yes normal to inspection General: Yes no CVA tenderness Back/Spine/Pelvis Back: no CVA tenderness Skin General skin exam: no rashes or lesions noted Neuro General: patient oriented x3 Extrem General: Yes normal to inspection Psych Appearance: grossly normal and well kempt Mental Status: mental status grossly normal Speech and movement: Normal speech and movement present and Clear speech present Affect: normal affect Attitude: cooperative Thought process: Normal thought process present Thought content: Normal thought content present Insight: Fair insight present (Psych) Judgement: Fair judgement present (Psych) Office Procedures Post Void Residual Post Residual Void Post Void Residual (PVR): 81 36051-Kgrm Void Residual by ultrasound Results AMB Urinalysis, Automated UA Leukoctes 0 Latoya/uL Last Edit by Rosalva Nur [facility] on 03/19/25 10:14 UA Nitrite Negative Last Edit by [facility], [facility] on 03/19/25 10:14 UA Urobilinogen 0.2 mg/dL Last Edit by [facility], [facility] on 03/19/25 10:14 UA Protein 0 mg/dL Last Edit by [facility], [facility] on 03/19/25 10:14 UA pH 8.0 Last Edit by [facility], [facility] on 03/19/25 10:14 UA Blood 0 Eduar/uL Last Edit by [facility], [facility] on 03/19/25 10:14 UA Specific [place] 1.005 Last Edit by [facility], [facility] on 03/19/25 10:14 UA Ketone Negative Last Edit by [facility], [facility] on 03/19/25 10:14 UA Bilirubin 0 mg/dL Last Edit by [facility], [facility] on 03/19/25 10:14 UA Glucose 0 mg/dL Last Edit by [facility], [facility] on 03/19/25 10:14 Results Reviewed Results Reviewed: Laboratory Last Values Urine pH (Auto) 8.0 03/19/25 10:13 Specific [place] (Auto) 1.005 03/19/25 10:13 Urine Protein (Auto) 0 mg/dL 03/19/25 10:13 Glucose (UA)(Auto) 0 mg/dL 03/19/25 10:13 Urine Ketones (Auto) Negative 03/19/25 10:13 Urine Blood (Auto) 0 Eduar/uL 03/19/25 10:13 Urine Nitrite (Auto) Negative 03/19/25 10:13 Urine Bilirubin (Auto) 0 mg/dL 03/19/25 10:13 Urine Urobilinogen (Auto) 0.2 mg/dL 03/19/25 10:13 Leukocyte Esterase (Auto) 0 Latoya/uL 03/19/25 10:13 Ordering Physician: Janay Almeida CNP Date of Service: 11/13/24 Procedure(s): CT abdomen pelvis w IV con Accession Number(s): [id number] cc: Catarina Ye PA-C; Janay Almeida CNP~ Report Number: [id number]: Total DLP = 542.00 mGy-cm EXAMINATION: CT ABDOMEN PELVIS WITH IV CONTRAST HISTORY: K92.1 - Melena COMPARISON: There are no prior studies for available comparison. TECHNIQUE: CT scan of the abdomen and pelvis was performed following administration of 85 mL Omnipaque 350 using standard departmental protocol. Coronal and sagittal reformatted images were generated and reviewed. Oral contrast material was not administered at the request of the referring physician. This CT exam was performed with one or more of the following dose reduction techniques: automated exposure control, adjustment of the mA and/or kV according to patient size, use of iterative reconstruction technique. DLP: 542 mGy-cm FINDINGS: LOWER CHEST: There is minimal dependent atelectasis at both lung bases.. There is no pleural effusion. CARDIOVASCULATURE: The heart is normal in size. There is no pericardial effusion. LIVER: The liver is normal in size and contour, but demonstrates heterogeneously decreased attenuation, consistent with steatosis. There is focal fatty sparing adjacent to the gallbladder. No liver mass is identified. The hepatic and portal veins are patent. GALLBLADDER / BILE DUCTS: The gallbladder is unremarkable. There is no intra or extrahepatic biliary ductal dilatation. SPLEEN: The spleen is normal in size. No focal splenic lesion is identified. PANCREAS: The pancreas is unremarkable in appearance. ADRENAL GLANDS: Within normal limits. KIDNEYS/RETROPERITONEUM: No renal calculi are identified. There is no hydronephrosis. No renal masses are identified. LYMPH NODES: No abdominal or pelvic lymphadenopathy. VASCULATURE: The abdominal aorta is normal in caliber. MESENTERY/PERITONEUM: No free fluid. No masses. There is no free intraperitoneal gas. STOMACH: The stomach is collapsed, limiting evaluation. SMALL BOWEL: The small bowel is normal in caliber. COLON: There is diverticulosis of the descending and sigmoid colon without evidence of diverticulitis. APPENDIX: Normal. URINARY BLADDER/PELVIC ORGANS: There are multiple bladder diverticula on the right measuring up to 1.5 cm in size. The prostate is enlarged. BONES / SOFT TISSUES: No suspicious bony or soft tissue abnormalities. CT/CT abdomen pelvis w IV con IMPRESSION: 1. Diverticulosis of the descending and sigmoid colon, without evidence of diverticulitis. 2. Hepatic steatosis. 3. Right-sided bladder diverticula. Assessment & Plan Assessment & Plan (1) Lower urinary tract symptoms: Code(s): R39.9 - Unspecified symptoms and signs involving the genitourinary system Category: Medical (2) Diverticula, bladder: Code(s): N32.3 - Diverticulum of bladder Category: Medical (3) Enlarged prostate: Code(s): N40.0 - Benign prostatic hyperplasia without lower urinary tract symptoms Category: Medical Plan In office urinalysis results reviewed with the patient today; as noted above. PVR [address] results reviewed with the patient today; as noted above. Was recent PSA results reviewed with the patient today; as noted above. We did discuss bladder diverticula an enlarged prostate; we discussed further treatment options and risks and benefits of these treatment options. All questions were answered. Continue Flomax as discussed and prescribed. We did discussed lifestyle modifications Information provided regarding in office cystoscopy. Follow-up next available in office cystoscopy; or sooner with any issues, concerns, and or questions Orders: Orders AMB Urinalysis Automated Today N13.8 - Other obstructive and reflux uropathy, N40.1 - Benign prostatic hyperplasia with lower urinary tract symptoms AMB Post Void Residual by ultrasound Today N40.1 - Benign prostatic hyperplasia with lower urinary tract symptoms Patient Instructions: The patient had an opportunity to ask questions regarding the treatment plan. All questions were answered. Physical exam, labs, and imaging were discussed and reviewed in detail. As well as risks, benefits, and discussion of treatment choices. No major barriers to understanding were identified. The patient expressed understanding and agreement with the above treatment plan. The patient was made aware they should contact our office by phone for worsening of their current condition, the appearance of new symptoms, or with any questions or concerns. Compliance is encouraged with any medications and follow up testing that is ordered. It is a privilege to be allowed the opportunity to participate in? your urological care.? Again, if you have any questions or concerns If you have any questions or concerns please do not hesitate to contact me. The office is [phone]. This note is constructed using voice recognition software. While every effort has been made to ensure accuracy catering driver errors may have been included. Yours sincerely, DANIELLE Farr Coding Level of Care Code New Pt Level 3 (41032) Diagnoses Lower urinary tract symptoms R39.9 Diverticula, bladder N32.3 Enlarged prostate N40.0 CPT Codes Post Residual Void - PVR CPT Code: 38269-Xrjn Void Residual by ultrasound ([id number])
== END 2025-03-19 10:56 | disposition home or self-care (01) ==
LOC: HO.HUSH 10:03
PROVIDERS: PCP Physician Assistant Medical; Visit Provider Nurse Practitioner Family
DX: R39.9 Unspecified symptoms and signs involving the genitourinary system (principal); N32.3 Diverticulum of bladder; N40.0 Benign prostatic hyperplasia without lower urinary tract symptoms; N40.1 Benign prostatic hyperplasia with lower urinary tract symptoms; N13.8 Other obstructive and reflux uropathy
CPT/HCPCS: 99203

== ENCOUNTER → 2025-03-19 10:02 | Outpatient (BNVA) | payer MEDICARE, MEDICAID, SELFPAY | PROVIDERS: PCP Physician Assistant Medical; Visit Provider Nurse Practitioner Family | DX: N40.0 Benign prostatic hyperplasia without lower urinary tract symptoms (principal); N32.3 Diverticulum of bladder; R39.9 Unspecified symptoms and signs involving the genitourinary system | CPT/HCPCS: 51798; 81003; 99202 ==